=== PATIENT | male | born 1955 | race Caucasian/White ===

== ENCOUNTER 2017-02-11 13:22 | Emergency (ER) | payer MEDICARE, MEDICAID ==
--- NOTE | 2017-02-11 14:54 | EDM.PDOC ---
ED HISTORY OF PRESENT ILLNESS - General Chief Complaint: Respiratory Problem Stated Complaint: PNEUMONIA Time Seen by Provider: 02/11/17 14:15 Source: Reports: Patient History Limitations: Reports: No limitations - History of Present Illness INITIAL COMMENTS - FREE TEXT/NARRATIVE: According to patient he has been having nasal congestion and cough since sunday. He has been running fever with chills with bodyaches and back ache. Cough is worse at night. Has some sore throat today. He feels weak, tired an achy. He is concerned he has pneumonia and hence here in the clinic. No other complaints. No wheezing , chest pain or shortness of breath. Symptom Onset Date: 02/09/17 Timing/Duration: Reports: Gradual onset Severity: moderate Associated Symptoms: Reports: cough, fever/chills, headaches, weakness. Denies : confusion, chest pain, diaphoresis, loss of appetite, nausea/vomiting, shortness of breath, syncope - Related Data Allergies/ADRs: Allergies Allergy/AdvReac Type Severity Reaction Status Date / Time No Known Allergies Allergy Verified 09/03/15 11:38 Home Meds: Home Meds Aspirin [Halfprin] 81 mg PO DAILY 11/03/14 [History] Cinacalcet [Sensipar] 30 mg PO DAILY 11/03/14 [History] Citalopram Hydrobromide [Celexa] 20 mg PO DAILY 11/03/14 [History] Gluc HCl/Csa/Daniel Hy/Hyalur Ac [Glucosamine Chondroitin] 1 each PO DAILY [History] Hydrochlorothiazide 12.5 mg PO DAILY 11/03/14 [History] Latanoprost [Xalatan] 1 drop OP DAILY 11/03/14 [History] Levothyroxine Sodium [Levoxyl] 75 mcg PO DAILY 11/03/14 [History] OLANZapine [ZyPREXA Zydis] 15 mg PO BEDTIME 11/03/14 [History] [place]-3 Fatty Acids [[place]-3] 1,000 mg PO BID 11/03/14 [History] Sennosides/Docusate Sodium [Senna-Docusate Sodium] 2 tab PO BEDTIME 11/03/14 [ History] Simvastatin [Zocor] 20 mg PO BEDTIME 11/03/14 [History] buPROPion HCl [Wellbutrin SR] 450 mg PO DAILY 11/03/14 [History] ARIPiprazole [Abilify] 7.5 mg PO DAILY 09/03/15 [History] Potassium Chloride [Klor-Con M20] 20 meq PO DAILY 09/03/15 [History] Pramipexole Di-HCl [Mirapex] 2 mg PO BEDTIME 09/03/15 [History] lamoTRIgine [LaMICtal] 150 mg PO BID 09/03/15 [History] Cholecalciferol (Vitamin D3) [Vitamin D3] 1,000 unit PO DAILY 02/11/17 [History] OLANZapine [Olanzapine] 10 mg PO DAILY 02/11/17 [History] Past Medical History HEENT History: Reports: Cataract Other HEENT History: had cataract surgery, wears glasses Cardiovascular History: Reports: Other (see below) Other Cardiovascular History: States was told some enzyme was elevated in [place] and now takes aspirin Genitourinary History: Reports: Renal disease Musculoskeletal History: Reports: Arthritis, Back pain, chronic Neurological History: Reports: Migraines Psychiatric History: Reports: Depression, Schizophrenia Other Psychiatric History: Has had ECT x 2, Dx Schizo Affective Depression Endocrine/Metabolic History: Reports: Hypothyroidism, IDDM Other Endocrine/Metabolic History: Diabetes insipidus - Past Surgical History HEENT Surgical History: Reports: Cataract surgery Cardiovascular Surgical History: Reports: None GI Surgical History: Reports: Hernia repair/other Other GI Surgeries/Procedures: hernia repair x 3 Male Surgical History: Reports: None Musculoskeletal Surgical History: Reports: Carpal tunnel, Knee replacement Other Musculoskeletal Surgeries/Procedures:: bilateral knee surger and bilateral carpal tunnel Social & Family History - Family History Family Medical History: Noncontributory - Tobacco Use Smoking Status *Q: Never Smoker Second Hand Smoke Exposure: No - Caffeine Use Caffeine Use: Reports: Coffee - Recreational Drug Use Recreational Drug Use: No ED ROS GENERAL - Review of Systems Review Of Systems: See Below Constitutional: Reports: fever, chills, weakness HEENT: Reports: Rhinitis, Throat pain. Denies: Ear discharge, Ear pain, Throat swelling, Vision change Respiratory: Reports: Cough. Denies: Shortness of Breath, Wheezing, Pleuritic Chest Pain Cardiovascular: Denies: Chest pain, Lightheadedness GI/Abdominal: Denies: Abdominal pain, Nausea, Vomiting : Denies: dysuria, frequency Musculoskeletal: Reports: muscle pain. Denies: joint pain, joint swelling Skin: Denies: pruritis, rash ED EXAM, GENERAL - Physical Exam Exam: See Below Exam Limited By: No limitations General Appearance: alert, WD/WN, no apparent distress Eye Exam: bilateral eye: EOMI, PERRL Ears: normal external exam, normal canal, hearing grossly normal, normal TMs Ear Exam: bilateral ear: auricle normal, canal normal, TM normal Nose: normal mucosa, nasal drainage (minimal and mucoid) Throat/Mouth: Normal inspection, Normal lips, Normal teeth, Normal gums, Normal oropharynx, Normal voice, No airway compromise Head: atraumatic, normocephalic Neck: normal inspection, supple, non-tender, full range of motion Respiratory/Chest: no respiratory distress, lungs clear, normal breath sounds, no accessory muscle use, chest non-tender Cardiovascular: normal peripheral pulses, regular rate, rhythm, no edema, no gallop, no JVD, no murmur, no rub Peripheral Pulses: 2+: radial (L), radial (R) GI/Abdominal: normal bowel sounds, soft, non tender, no organomegaly, no distention, no abnormal bruit, no mass Neurological: alert, oriented, CN II-XII intact, normal cognition, normal gait, normal reflexes, no motor/sensory deficits Skin Exam: Warm, Dry, Intact, Normal color, No rash Course - Vital Signs Text/Narrative:: Pt's chest xray appears normal.His CBC shows white count of 4.8. His influenza testing is negative. Pt reassured that he has viral upper respiratory infection with fever. Advised rest and hydration. Steam inhalations 3-4 times daily. Zyrtec 10mg daily. this is self limiting disease, should resolve. If symptoms not better in 1 wk or worsens, advised to followup in the clinic. Last Recorded V/S: Last Vital Signs Temp 100 F 02/11/17 14:53 Pulse 60 02/11/17 14:53 Resp 18 02/11/17 14:53 BP 125/75 02/11/17 14:53 Pulse Ox 97 02/11/17 14:53 - Orders/Labs/Meds Orders: Active Orders 24 hr Category Date Time Status Chest 2V [CR] Stat Exams 02/11/17 14:17 Taken Labs: Laboratory Tests 02/11/17 Range/Units 14:25 WBC 4.6 (4.0-11.0) K/uL RBC 4.70 (4.50-6.50) M/uL Hgb 14.0 (13.0-18.0) g/dL Hct 42.8 (40.0-54.0) % MCV 91 (76-96) fL MCH 29.8 (27.0-32.0) pg MCHC 32.7 (31.0-35.0) g/dL RDW 14.7 (11.0-16.0) % Plt Count 138 L (150-400) K/uL MPV 10.9 H (6.0-10.0) fL Neut % (Auto) 49.1 (45.0-70.0) % Lymph % (Auto) 26.2 (20.0-40.0) % [place] % (Auto) 23.4 H (3.0-10.0) % Eos % (Auto) 0.9 L (1.0-5.0) % Baso % (Auto) 0.4 (0.0-0.5) % Neut # (Auto) 2.25 (2.00-7.50) K/uL Lymph # (Auto) 1.20 L (1.50-4.00) K/uL [place] # (Auto) 1.07 H (0.20-0.80) K/uL Eos # (Auto) 0.04 (0.04-0.40) K/uL Baso # (Auto) 0.02 (0.02-0.10) K/uL Departure - Departure Time of Disposition: 13:15 Disposition: Home, Self-Care 01 Clinical Impression: Acute upper respiratory infection Instructions: Loratadine oral disintegrating tablets Referrals: PCP,None [Primary Care Provider] - Forms: ED Department Discharge Additional Instructions: Pt's chest xray appears normal.His CBC shows white count of 4.8. His influenza testing is negative. Pt reassured that he has viral upper respiratory infection with fever. Advised rest and hydration. Steam inhalations 3-4 times daily. Zyrtec 10mg daily. this is self limiting disease, should resolve. If symptoms not better in 1 wk or worsens, advised to followup in the clinic. Care Plan Goals: Boil watter with vicks and inhail x 2 minutes 3 to 4 x day. Zyrtec (citrazene) daily. - Problem List & Annotations (1) Acute upper respiratory infection SNOMED Code(s): 34486579 Code(s): J06.9 - ACUTE UPPER RESPIRATORY INFECTION, UNSPECIFIED Status: Acute Current Visit: Yes - Problem List Review Problem List Initiated/Reviewed/Updated: Yes - My Orders Last 24 Hours: My Active Orders 02/11/17 14:17 Chest 2V [CR] Stat - Assessment/Plan Last 24 Hours: My Active Orders 02/11/17 14:17 Chest 2V [CR] Stat Assessment:: Acute viral URI Plan: Pt's chest xray appears normal.His CBC shows white count of 4.8. His influenza testing is negative. Pt reassured that he has viral upper respiratory infection with fever. Advised rest and hydration. Steam inhalations 3-4 times daily. Zyrtec 10mg daily. this is self limiting disease, should resolve. If symptoms not better in 1 wk or worsens, advised to followup in the clinic.
[2017-02-11 14:55] VITALS: BP 125/75
--- NOTE | 2017-02-12 08:47 | CR ---
DATE OF SERVICE: 02/11/17 CLINICAL DATA: temp cough PA AND LATERAL CHEST: Comparison is made to a prior exam dated 09/03/15. The heart size is normal. The aorta is ectatic. There are atelectatic changes in both lower lungs. The lungs are otherwise clear. No pneumothorax. No pleural effusions. I do not see any other significant findings. [id number] [facility]
== END 2017-02-11 15:30 | disposition home or self-care (01) ==
LOC: LB.ED 13:22
DX: J06.9 Acute upper respiratory infection, unspecified (principal); E11.9 Type 2 diabetes mellitus without complications; M19.90 Unspecified osteoarthritis, unspecified site; F32.9 Major depressive disorder, single episode, unspecified; Z98.49 Cataract extraction status, unspecified eye; Z79.82 Long term (current) use of aspirin; Z79.899 Other long term (current) drug therapy; Z96.653 Presence of artificial knee joint, bilateral; Z98.890 Other specified postprocedural states
CPT/HCPCS: 36415; 71020; 85025; 87804; 99283

== ENCOUNTER 2017-10-11 09:05 | Observation (INO) | payer MEDICARE, MEDICAID ==
--- NOTE | 2017-10-11 10:41 | EDM.PDOC ---
ED HPI GENERAL MEDICAL PROBLEM - General Chief Complaint: Chest Pain Stated Complaint: chest pain Time Seen by Provider: 10/11/17 10:00 Source of Information: Reports: Patient, Old Records History Limitations: Reports: No Limitations - History of Present Illness INITIAL COMMENTS - FREE TEXT/NARRATIVE: This is a 62yo M here for chest pain since the am. He states it started this am in the left side of the chest, dull and has been constant and slightly improved with no radiation. He has not taken any nitro but has in the past. Denies any sob or other concerns. No diaphoresis or numbness or tingling. Onset: Today Duration: Hour(s):, Constant Location: Reports: Chest Quality: Reports: Ache Severity: Moderate Improves with: Reports: None Worsens with: Reports: Movement Associated Symptoms: Reports: No Other Symptoms chest pain Pain Score (Numeric/FACES): 6 - Related Data Allergies Allergy/AdvReac Type Severity Reaction Status Date / Time No Known Allergies Allergy Verified 09/03/15 11:38 Home Meds: Home Meds Aspirin [Halfprin] 81 mg PO DAILY 11/03/14 [History] Cinacalcet [Sensipar] 30 mg PO DAILY 11/03/14 [History] Citalopram Hydrobromide [Celexa] 20 mg PO DAILY 11/03/14 [History] Gluc HCl/Csa/Daniel Hy/Hyalur Ac [Glucosamine Chondroitin] 1 each PO DAILY [History] Hydrochlorothiazide 12.5 mg PO DAILY 11/03/14 [History] Latanoprost [Xalatan] 1 drop OP DAILY 11/03/14 [History] Levothyroxine Sodium [Levoxyl] 75 mcg PO DAILY 11/03/14 [History] OLANZapine [ZyPREXA Zydis] 15 mg PO BEDTIME 11/03/14 [History] [place]-3 Fatty Acids [[place]-3] 1,000 mg PO BID 11/03/14 [History] Sennosides/Docusate Sodium [Senna-Docusate Sodium] 2 tab PO BEDTIME 11/03/14 [ History] Simvastatin [Zocor] 20 mg PO BEDTIME 11/03/14 [History] buPROPion HCl [Wellbutrin SR] 450 mg PO DAILY 11/03/14 [History] ARIPiprazole [Abilify] 7.5 mg PO DAILY 09/03/15 [History] Potassium Chloride [Klor-Con M20] 20 meq PO DAILY 09/03/15 [History] Pramipexole Di-HCl [Mirapex] 2 mg PO BEDTIME 09/03/15 [History] lamoTRIgine [LaMICtal] 150 mg PO BID 09/03/15 [History] Cholecalciferol (Vitamin D3) [Vitamin D3] 1,000 unit PO DAILY 02/11/17 [History] OLANZapine [Olanzapine] 10 mg PO DAILY 02/11/17 [History] Past Medical History HEENT History: Reports: Cataract Other HEENT History: had cataract surgery, wears glasses Cardiovascular History: Reports: Other (See Below) Other Cardiovascular History: States was told some enzyme was elevated in [place] and now takes aspirin Genitourinary History: Reports: Renal Disease Musculoskeletal History: Reports: Arthritis, Back Pain, Chronic Neurological History: Reports: Migraines Psychiatric History: Reports: Depression, Schizophrenia Other Psychiatric History: Has had ECT x 2, Dx Schizo Affective Depression Endocrine/Metabolic History: Reports: Hypothyroidism, IDDM Other Endocrine/Metabolic History: Diabetes insipidus - Past Surgical History HEENT Surgical History: Reports: Cataract Surgery GI Surgical History: Reports: Hernia Repair/Other Musculoskeletal Surgical History: Reports: Carpal Tunnel, Knee Replacement Social & Family History - Family History Family Medical History: Noncontributory - Tobacco Use Smoking Status *Q: Never Smoker Second Hand Smoke Exposure: No - Caffeine Use Caffeine Use: Reports: Coffee - Recreational Drug Use Recreational Drug Use: No ED ROS GENERAL - Review of Systems Review Of Systems: ROS reveals no pertinent complaints other than HPI. ED EXAM, GENERAL - Physical Exam Exam: See Below Exam Limited By: No Limitations General Appearance: Alert, WD/WN, Mild Distress Eye Exam: Bilateral Eye: EOMI Ears: Normal External Exam Ear Exam: Bilateral Ear: TM normal Nose: Normal Inspection Throat/Mouth: Normal Inspection, Normal Lips, Normal Teeth, Normal Oropharynx Head: Atraumatic, Normocephalic Neck: Normal Inspection Respiratory/Chest: No Respiratory Distress, Lungs Clear Cardiovascular: Normal Peripheral Pulses, Regular Rate, Rhythm, Other (chest wall pain that is reproducible) Peripheral Pulses: 2+: Carotid (L), Carotid (R) GI/Abdominal: Normal Bowel Sounds Back Exam: Normal Inspection Neurological: Alert, Oriented, CN II-XII Intact Course - Vital Signs Last Recorded V/S: Last Vital Signs Temp 36.7 C 10/11/17 09:54 Pulse 58 L 10/11/17 13:36 Resp 22 H 10/11/17 09:54 BP 120/73 10/11/17 13:36 Pulse Ox 99 10/11/17 13:36 - Orders/Labs/Meds Labs: Laboratory Tests 10/11/17 10/11/17 Range/Units 09:30 09:30 WBC 4.7 (4.0-11.0) K/uL RBC 4.40 L (4.50-6.50) M/uL Hgb 13.0 (13.0-18.0) g/dL Hct 39.9 L (40.0-54.0) % MCV 91 (76-96) fL MCH 29.5 (27.0-32.0) pg MCHC 32.6 (31.0-35.0) g/dL RDW 14.3 (11.0-16.0) % Plt Count 149 L (150-400) K/uL MPV 11.1 H (6.0-10.0) fL Neut % (Auto) 52.7 (45.0-70.0) % Lymph % (Auto) 31.4 (20.0-40.0) % [place] % (Auto) 10.3 H (3.0-10.0) % Eos % (Auto) 4.5 (1.0-5.0) % Baso % (Auto) 1.1 H (0.0-0.5) % Neut # (Auto) 2.45 (2.00-7.50) K/uL Lymph # (Auto) 1.46 L (1.50-4.00) K/uL [place] # (Auto) 0.48 (0.20-0.80) K/uL Eos # (Auto) 0.21 (0.04-0.40) K/uL Baso # (Auto) 0.05 (0.02-0.10) K/uL Sodium 142 (136-145) mmol/L Potassium 3.6 (3.5-5.1) mmol/L Chloride 103 (98-107) mmol/L Carbon Dioxide 27.7 (21.0-32.0) mmol/L Anion Gap 14.9 (5.0-15.0) mmol/L BUN 26 (8-26) mg/dL Creatinine 2.34 H (0.70-1.30) mg/dL Est Cr Clr Drug Dosing 25.67 mL/min Estimated GFR (MDRD) 28 L (>60) MLS/MIN BUN/Creatinine Ratio 11.1 (6-25) Glucose 103 H (74-100) mg/dL Calcium 8.5 (8.5-10.1) mg/dL Total Bilirubin 0.4 (0.0-1.0) mg/dL AST 31 (15-37) U/L ALT 37 (12-78) U/L Alkaline Phosphatase 58 (46-116) U/L Troponin I < 0.017 (0.000-0.060) ng/mL B-Natriuretic Peptide 34 (0-125) pg/mL Total Protein 7.0 (6.4-8.2) g/dL Albumin 3.6 (3.4-5.0) g/dL Globulin 3.4 (2.2-4.2) g/dL Albumin/Globulin Ratio 1.1 (0.8-2.0) TSH, Ultra Sensitive 3.854 H (0.358-3.740) uIU/mL Meds: Medications Discontinued Medications Generic Name Dose Route Start Last Admin Trade Name Freq PRN Reason Stop Dose Admin Aspirin 81 mg 10/12/17 08:00 Halfprin PO DAILY DANETTE Bupropion HCl 450 mg 10/12/17 08:00 Wellbutrin Sr PO DAILY DANETTE Hydrochlorothiazide 12.5 mg 10/12/17 08:00 Hydrochlorothiazide PO DAILY DANETTE Ketorolac Tromethamine 30 mg 10/11/17 11:32 10/11/17 11:30 Toradol IVPUSH 10/11/17 11:33 30 mg ONETIME ONE Administration Lamotrigine 150 mg 10/11/17 20:00 Lamictal PO BID DANETTE Latanoprost 2.5 ml 10/11/17 20:00 Xalatan 0.005% Ophth Soln EYEBOTH BEDTIME DANETTE Levothyroxine Sodium 75 mcg 10/12/17 08:00 Levothyroxine PO DAILY DANETTE Non-Formulary Medication 7.5 mg 10/12/17 08:00 Aripiprazole [Abilify] PO DAILY DANETTE Non-Formulary Medication 1,000 unit 10/12/17 08:00 Cholecalciferol (Vitamin D3) [Vitamin D3] PO DAILY DANETTE Non-Formulary Medication 30 mg 10/12/17 08:00 Cinacalcet [Sensipar] PO DAILY DANETTE Non-Formulary Medication 20 mg 10/12/17 08:00 Citalopram Hydrobromide [Celexa] PO DAILY DANETTE Non-Formulary Medication 1 each 10/12/17 08:00 Gluc Hcl/Csa/Daniel Hy/Hyalur Ac [Glucosamine Chondroitin] PO DAILY DANETTE Non-Formulary Medication 10 mg 10/12/17 08:00 Olanzapine [Olanzapine] PO DAILY DANETTE Non-Formulary Medication 15 mg 10/11/17 20:00 Olanzapine [Zyprexa Zydis] PO BEDTIME DANETTE Non-Formulary Medication 1,000 mg 10/11/17 20:00 [place]-3 Fatty Acids [[place]-3] PO BID DANETTE Potassium Chloride 20 meq 10/12/17 08:00 Klor-Con M20 PO DAILY DANETTE Pramipexole Dihydrochloride 2 mg 10/11/17 20:00 Mirapex PO BEDTIME DANETTE Senna/Docusate Sodium 2 tab 10/11/17 20:00 Senna Plus PO BEDTIME DANETTE Simvastatin 20 mg 10/11/17 20:00 Zocor PO BEDTIME DANETTE Departure - Departure Time of Disposition: 10:00 Disposition: Refer to Observation Condition: Undetermined Clinical Impression: Chest pain Qualifiers: Chest pain type: other chest pain Qualified Code(s): R07.89 - Other chest pain ; R07.8 - Other chest pain - Problem List & Annotations (1) Chest pain SNOMED Code(s): 82606731 Code(s): R07.9 - CHEST PAIN, UNSPECIFIED Status: Acute Priority: High Qualifiers: Chest pain type: other chest pain Qualified Code(s): R07.89 - Other chest pain; R07.8 - Other chest pain - Problem List Review Problem List Initiated/Reviewed/Updated: Yes - Assessment/Plan Plan: Patient placed in observation under telemetry for serial troponins. Patient agrees with plan of care and we will continue to monitor closely. Patient continues to have chest pain 4/10 non radiating.
[2017-10-11] MEDS ORDERED: Ketorolac 30 MG/ML SDV IVPUSH ONE (11:32)
[2017-10-11 13:37] VITALS: BP 120/73
--- NOTE | 2017-10-11 15:11 | PCM.DCSUM1 ---
Discharge Summary - Discharge Data Discharge Date: 10/11/17 Discharge Disposition: Home, Self-Care 01 Condition: Good - Discharge Diagnosis/Problem(s) (1) Chest pain, musculoskeletal SNOMED Code(s): 175863749 ICD Code: R07.89 - OTHER CHEST PAIN Status: Acute (2) Chest pain SNOMED Code(s): 11792188 ICD Code: R07.9 - CHEST PAIN, UNSPECIFIED Status: Acute Priority: High Qualifiers: Chest pain type: other chest pain Qualified Code(s): R07.89 - Other chest pain; R07.8 - Other chest pain - Patient Instructions Diet: Regular Diet as Tolerated Activity: As Tolerated - Discharge Plan Home Medications: Home Meds Aspirin [Halfprin] 81 mg PO DAILY 11/03/14 [History] Cinacalcet [Sensipar] 30 mg PO DAILY 11/03/14 [History] Citalopram Hydrobromide [Celexa] 20 mg PO DAILY 11/03/14 [History] Gluc HCl/Csa/Daniel Hy/Hyalur Ac [Glucosamine Chondroitin] 1 each PO DAILY [History] Hydrochlorothiazide 12.5 mg PO DAILY 11/03/14 [History] Latanoprost [Xalatan] 1 drop OP DAILY 11/03/14 [History] Levothyroxine Sodium [Levoxyl] 75 mcg PO DAILY 11/03/14 [History] OLANZapine [ZyPREXA Zydis] 15 mg PO BEDTIME 11/03/14 [History] [place]-3 Fatty Acids [[place]-3] 1,000 mg PO BID 11/03/14 [History] Sennosides/Docusate Sodium [Senna-Docusate Sodium] 2 tab PO BEDTIME 11/03/14 [ History] Simvastatin [Zocor] 20 mg PO BEDTIME 11/03/14 [History] buPROPion HCl [Wellbutrin SR] 450 mg PO DAILY 11/03/14 [History] ARIPiprazole [Abilify] 7.5 mg PO DAILY 09/03/15 [History] Potassium Chloride [Klor-Con M20] 20 meq PO DAILY 09/03/15 [History] Pramipexole Di-HCl [Mirapex] 2 mg PO BEDTIME 09/03/15 [History] lamoTRIgine [LaMICtal] 150 mg PO BID 09/03/15 [History] Cholecalciferol (Vitamin D3) [Vitamin D3] 1,000 unit PO DAILY 02/11/17 [History] OLANZapine [Olanzapine] 10 mg PO DAILY 02/11/17 [History] Patient Handouts: Hypothyroidism Forms: ED Department Discharge Referrals: PCP,None [Primary Care Provider] - - Discharge Summary/Plan Comment Discharge Summary/Plan Comment: Counseled on continued monitoring and supportive/conservative care of chest pain and f/u in clinic as needed. Discussed if any further symptoms or worsening to return for re-evaluation. Discussed signs of diaphoresis, radiation , shortness of breath and other symptoms to monitor. Discussed stress and rest at this time. - Patient Data Vitals - Most Recent: Last Vital Signs Temp 36.7 C 10/11/17 09:54 Pulse 58 L 10/11/17 13:36 Resp 22 H 10/11/17 09:54 BP 120/73 10/11/17 13:36 Pulse Ox 99 10/11/17 13:36 Weight - Most Recent: 78.018 kg Lab Results - Last 24 hrs: Laboratory Results - last 24 hr 10/11/17 Range/Units 13:58 Troponin I < 0.017 (0.000-0.060) ng/mL Med Orders - Current: Current Medications Aspirin (Halfprin) 81 mg PO DAILY DANETTE Bupropion HCl (Wellbutrin Sr) 450 mg PO DAILY DANETTE Hydrochlorothiazide (Hydrochlorothiazide) 12.5 mg PO DAILY DANETTE Lamotrigine (Lamictal) 150 mg PO BID DANETTE Latanoprost (Xalatan 0.005% Ophth Soln) 2.5 ml EYEBOTH BEDTIME DANETTE Levothyroxine Sodium (Levothyroxine) 75 mcg PO DAILY DANETTE Non-Formulary Medication (Aripiprazole [Abilify]) 7.5 mg PO DAILY DANETTE Non-Formulary Medication (Cholecalciferol (Vitamin D3) [Vitamin D3]) 1,000 unit PO DAILY DANETTE Non-Formulary Medication (Cinacalcet [Sensipar]) 30 mg PO DAILY DANETTE Non-Formulary Medication (Citalopram Hydrobromide [Celexa]) 20 mg PO DAILY DANETTE Non-Formulary Medication (Gluc Hcl/Csa/Daniel Hy/Hyalur Ac [Glucosamine Chondroitin]) 1 each PO DAILY DANETTE Non-Formulary Medication (Olanzapine [Olanzapine]) 10 mg PO DAILY DANETTE Non-Formulary Medication (Olanzapine [Zyprexa Zydis]) 15 mg PO BEDTIME DANETTE Non-Formulary Medication ([place]-3 Fatty Acids [[place]-3]) 1,000 mg PO BID DANETTE Potassium Chloride (Klor-Con M20) 20 meq PO DAILY DANETTE Pramipexole Dihydrochloride (Mirapex) 2 mg PO BEDTIME DANETTE Senna/Docusate Sodium (Senna Plus) 2 tab PO BEDTIME DANETTE Simvastatin (Zocor) 20 mg PO BEDTIME DANETTE Discontinued Medications Ketorolac Tromethamine (Toradol) 30 mg IVPUSH ONETIME ONE Stop: 10/11/17 11:33 Last Admin: 10/11/17 11:30 Dose: 30 mg *Q Meaningful Use (DIS) - VTE *Q VTE Criteria *Q: - Stroke *Q Stroke Criteria *Q: - AMI *Q AMI Criteria *Q:
[2017-10-11] MEDS ORDERED: Pramipexole 0.125 MG Tab PO SCH (20:00)
[2017-10-11] MEDS ORDERED: Simvastatin 20 MG Tab PO SCH (20:00)
[2017-10-11] MEDS ORDERED: Latanoprost 0.005% Ophth Soln 2.5 ML Bottle EYEBOTH SCH (20:00)
[2017-10-11] MEDS ORDERED: Non-Formulary Medication 1 Each (Omega-3 Fatty Acids [Omega-3] 1,000 MG) PO SCH (20:00)
[2017-10-11] MEDS ORDERED: OLANZAPINE 15 MG PO SCH (20:00)
[2017-10-12] MEDS ORDERED: CINACALCET 30 MG PO SCH (08:00)
[2017-10-12] MEDS ORDERED: Levothyroxine 75 MCG Tab PO SCH (08:00)
[2017-10-12] MEDS ORDERED: buPROPion 150 MG Tab.SR PO SCH (08:00)
[2017-10-12] MEDS ORDERED: Non-Formulary Medication 1 Each (Cholecalciferol (Vitamin D3) [Vitamin D3] 1,000 UNIT) PO SCH (08:00)
[2017-10-12] MEDS ORDERED: OLANZAPINE 10 MG PO SCH (08:00)
[2017-10-12] MEDS ORDERED: Hydrochlorothiazide 25 MG Tab PO SCH (08:00)
[2017-10-12] MEDS ORDERED: ARIPIPRAZOLE 7.5 MG PO SCH (08:00)
[2017-10-12] MEDS ORDERED: Potassium Chloride 20 MEQ Tab.ER PO SCH (08:00)
[2017-10-12] MEDS ORDERED: Aspirin 81 MG Tab.EC PO SCH (08:00)
[2017-10-12] MEDS ORDERED: Non-Formulary Medication 1 Each (Citalopram Hydrobromide [Celexa] 20 MG) PO SCH (08:00)
== END 2017-10-11 15:50 | disposition home or self-care (01) ==
LOC: LB.ED 09:05 → LB.MS 10:32
PROVIDERS: ADMIT Family Medicine; ATTEND Family Medicine
DX: R07.89 Other chest pain (principal); E11.9 Type 2 diabetes mellitus without complications; F32.9 Major depressive disorder, single episode, unspecified; E03.9 Hypothyroidism, unspecified; N28.9 Disorder of kidney and ureter, unspecified; Z79.82 Long term (current) use of aspirin; Z79.899 Other long term (current) drug therapy
CPT/HCPCS: 36415; 80053; 83880; 84443; 84484; 85025; 93005; 96374; 99285; A9270; G0378; J1885; 99235

== ENCOUNTER 2018-01-15 16:09 | Emergency (ER) | payer MEDICARE, MEDICAID ==
--- NOTE | 2018-01-15 16:39 | EDM.PDOC ---
ED HPI GENERAL MEDICAL PROBLEM - General Stated Complaint: CHEST PAIN & CONFUSION Time Seen by Provider: 01/15/18 16:10 Source of Information: Reports: Patient History Limitations: Reports: No Limitations - History of Present Illness INITIAL COMMENTS - FREE TEXT/NARRATIVE: According to patient he claims that he think he hit hie left chest against the wall 2 days ago. Since then he has been having chest pain, which is over the left side of the chest. Hurts when he takes deep breaths and also hurts when he pushes against left chest wall. He claims he really got concerned as pain has not been better.He has been feeling shortness of breath and also shaky, hence he called ambulance with the fear that he was having heart attacks. Pt claims he is very anxious. No sweating, no nausea or vomiting. No exertional angina. pt claims he was anxious and also got confused about the phone number of the [facility]. Onset Date: 01/13/18 Duration: Intermittent, Waxing/Waning Location: Reports: Chest Quality: Reports: Ache, Dull Severity: Mild Improves with: Reports: None Worsens with: Reports: Breathing, Movement Associated Symptoms: Reports: Confusion. Denies: Chest Pain, Cough, Diaphoresis , Fever/Chills, Headaches, Loss of Appetite, Malaise, Nausea/Vomiting, Rash, Seizure, Shortness of Breath, Syncope, Weakness - Related Data Allergies Allergy/AdvReac Type Severity Reaction Status Date / Time No Known Allergies Allergy Verified 09/03/15 11:38 Home Meds: Home Meds Aspirin [Halfprin] 81 mg PO DAILY 11/03/14 [History] Cinacalcet [Sensipar] 30 mg PO DAILY 11/03/14 [History] Citalopram Hydrobromide [Celexa] 20 mg PO DAILY 11/03/14 [History] Gluc HCl/Csa/Daniel Hy/Hyalur Ac [Glucosamine Chondroitin] 1 each PO DAILY [History] Hydrochlorothiazide 12.5 mg PO DAILY 11/03/14 [History] Latanoprost [Xalatan] 1 drop OP DAILY 11/03/14 [History] Levothyroxine Sodium [Levoxyl] 75 mcg PO DAILY 11/03/14 [History] OLANZapine [ZyPREXA Zydis] 15 mg PO BEDTIME 11/03/14 [History] [place]-3 Fatty Acids [[place]obb-3] 1,000 mg PO BID 11/03/14 [History] Sennosides/Docusate Sodium [Senna-Docusate Sodium] 2 tab PO BEDTIME 11/03/14 [ History] Simvastatin [Zocor] 20 mg PO BEDTIME 11/03/14 [History] buPROPion HCl [Wellbutrin SR] 450 mg PO DAILY 11/03/14 [History] ARIPiprazole [Abilify] 7.5 mg PO DAILY 09/03/15 [History] Potassium Chloride [Klor-Con M20] 20 meq PO DAILY 09/03/15 [History] Pramipexole Di-HCl [Mirapex] 2 mg PO BEDTIME 09/03/15 [History] lamoTRIgine [LaMICtal] 150 mg PO BID 09/03/15 [History] Cholecalciferol (Vitamin D3) [Vitamin D3] 1,000 unit PO DAILY 02/11/17 [History] OLANZapine [Olanzapine] 10 mg PO DAILY 02/11/17 [History] Past Medical History HEENT History: Reports: Cataract Other HEENT History: had cataract surgery, wears glasses Cardiovascular History: Reports: Other (See Below) Other Cardiovascular History: States was told some enzyme was elevated in [place] and now takes aspirin Genitourinary History: Reports: Renal Disease Musculoskeletal History: Reports: Arthritis, Back Pain, Chronic Neurological History: Reports: Migraines Psychiatric History: Reports: Depression, Schizophrenia Other Psychiatric History: Has had ECT x 2, Dx Schizo Affective Depression Endocrine/Metabolic History: Reports: Hypothyroidism, IDDM Other Endocrine/Metabolic History: Diabetes insipidus - Past Surgical History HEENT Surgical History: Reports: Cataract Surgery GI Surgical History: Reports: Hernia Repair/Other Musculoskeletal Surgical History: Reports: Carpal Tunnel, Knee Replacement Social & Family History - Family History Family Medical History: Noncontributory - Tobacco Use Smoking Status *Q: Never Smoker Second Hand Smoke Exposure: No - Caffeine Use Caffeine Use: Reports: Coffee - Recreational Drug Use Recreational Drug Use: No ED ROS GENERAL - Review of Systems Review Of Systems: See Below Constitutional: Denies: Fever, Chills, Night Sweats, Diaphoresis HEENT: Denies: Rhinitis, Sinus Problem, Throat Pain Respiratory: Reports: Pleuritic Chest Pain. Denies: Shortness of Breath, Wheezing, Cough, Sputum Cardiovascular: Denies: Chest Pain, Lightheadedness GI/Abdominal: Denies: Abdominal Pain, Constipation, Diarrhea, Nausea, Vomiting : Denies: Flank Pain, Pain, Urgency Musculoskeletal: Denies: Joint Pain, Joint Swelling Skin: Denies: Bruising, Pruritis, Rash ED EXAM, GENERAL - Physical Exam Exam: See Below Exam Limited By: No Limitations General Appearance: Alert, WD/WN, Anxious Eye Exam: Bilateral Eye: EOMI, PERRL Ears: Normal External Exam, Normal Canal, Hearing Grossly Normal, Normal TMs Ear Exam: Bilateral Ear: Auricle Normal, Canal Normal, TM normal Nose: Normal Inspection, Normal Mucosa, No Blood Throat/Mouth: Normal Inspection, Normal Lips, Normal Teeth, Normal Gums, Normal Oropharynx, Normal Voice, No Airway Compromise Head: Atraumatic, Normocephalic Neck: Normal Inspection, Supple, Non-Tender, Full Range of Motion Respiratory/Chest: No Respiratory Distress, Lungs Clear, Normal Breath Sounds, No Accessory Muscle Use, Other (Pt is tender over the left 4 and 5th costochondral junctions.). No: Crackles, Rales, Rhonchi, Wheezing Cardiovascular: Normal Peripheral Pulses, Regular Rate, Rhythm, No Edema, No Gallop, No JVD, No Murmur, No Rub GI/Abdominal: Normal Bowel Sounds, Soft, Non-Tender, No Organomegaly, No Distention, No Abnormal Bruit, No Mass Extremities: Normal Inspection, Normal Range of Motion, Non-Tender, Normal Capillary Refill, No Pedal Edema Neurological: Alert, Oriented, CN II-XII Intact, Normal Cognition, Normal Gait, Normal Reflexes, No Motor/Sensory Deficits EKG INTERPRETATION Rhythm: NSR Rate (Beats/Min): 75 [place]: Normal P-Wave: Present QRS: Normal ST-T: Normal QT: Normal Course - Vital Signs Text/Narrative:: According to patient he claims he hit hit left chest to the wall. Pain is elicitable by deep breathing and chest wall pressure. this appears like costochondiritis. Pt is very anxious and he has severe schizophrenia, which makes him paranoid. i have reassured pt that his EKG is normal. Will wait on lab work and troponin. If his chest pain is cardiac and going on for 48 hrs should have elevated troponin. Pt's CBC appear normal. His CMP shows creat of 2.3 which is chronic from his CRF. His troponin is negative. Pt reassured that he has mild costochondiritis. Advised intermittent heat to the chest wall every 2-3 hrs. Tylenol 500mg 4 times daily as needed. Pain should gradually improve. Last Recorded V/S: Last Vital Signs Temp 97.9 F 01/15/18 16:40 Pulse 75 01/15/18 16:40 Resp 18 01/15/18 16:40 BP 152/89 H 01/15/18 16:40 Pulse Ox 99 01/15/18 16:40 - Orders/Labs/Meds Orders: Active Orders 24 hr Category Date Time Status EKG Documentation Completion [RC] ASDIRECTED Care 01/15/18 16:32 Ordered Chest 2V [CR] Stat Exams 01/15/18 16:32 Ordered Labs: Laboratory Tests 01/15/18 01/15/18 Range/Units 16:55 16:55 WBC 5.2 (4.0-11.0) K/uL RBC 4.48 L (4.50-6.50) M/uL Hgb 13.2 (13.0-18.0) g/dL Hct 40.2 (40.0-54.0) % MCV 90 (76-96) fL MCH 29.5 (27.0-32.0) pg MCHC 32.8 (31.0-35.0) g/dL RDW 14.0 (11.0-16.0) % Plt Count 145 L (150-400) K/uL MPV 11.2 H (6.0-10.0) fL Neut % (Auto) 45.6 (45.0-70.0) % Lymph % (Auto) 33.3 (20.0-40.0) % Swisher % (Auto) 13.0 H (3.0-10.0) % Eos % (Auto) 7.5 H (1.0-5.0) % Baso % (Auto) 0.6 H (0.0-0.5) % Neut # (Auto) 2.39 (2.00-7.50) K/uL Lymph # (Auto) 1.74 (1.50-4.00) K/uL Swisher # (Auto) 0.68 (0.20-0.80) K/uL Eos # (Auto) 0.39 (0.04-0.40) K/uL Baso # (Auto) 0.03 (0.02-0.10) K/uL Sodium 145 (136-145) mmol/L Potassium 3.3 L (3.5-5.1) mmol/L Chloride 104 (98-107) mmol/L Carbon Dioxide 25.2 (21.0-32.0) mmol/L Anion Gap 19.1 H (5.0-15.0) mmol/L BUN 28 H (8-26) mg/dL Creatinine 2.33 H (0.70-1.30) mg/dL Est Cr Clr Drug Dosing 25.78 mL/min Estimated GFR (MDRD) 28 L (>60) MLS/MIN BUN/Creatinine Ratio 12.0 (6-25) Glucose 138 H D (74-100) mg/dL Calcium 8.7 (8.5-10.1) mg/dL Total Bilirubin 0.5 (0.0-1.0) mg/dL AST 27 (15-37) U/L ALT 35 (12-78) U/L Alkaline Phosphatase 62 (46-116) U/L Troponin I < 0.017 (0.000-0.060) ng/mL Total Protein 7.2 (6.4-8.2) g/dL Albumin 3.7 (3.4-5.0) g/dL Globulin 3.5 (2.2-4.2) g/dL Albumin/Globulin Ratio 1.1 (0.8-2.0) Departure - Departure Time of Disposition: 17:45 Disposition: Home, Self-Care 01 Condition: Good Clinical Impression: Costochondritis Chest pain Qualifiers: Chest pain type: other chest pain Qualified Code(s): R07.89 - Other chest pain - Discharge Information Instructions: Chest Wall Pain, [id number] Referrals: PCP,None [Ordering Only Provider] - Forms: ED Department Discharge Care Plan Goals: Use heating pad 15 to 20 min at a time. Return to clinic or hospital as needed. - Problem List & Annotations (1) Costochondritis SNOMED Code(s): 28116090 Code(s): M94.0 - CHONDROCOSTAL JUNCTION SYNDROME [TIETZE] Status: Acute Current Visit: Yes - Problem List Review Problem List Initiated/Reviewed/Updated: Yes - My Orders Last 24 Hours: My Active Orders 01/15/18 16:32 EKG Documentation Completion [RC] ASDIRECTED Chest 2V [CR] Stat - Assessment/Plan Last 24 Hours: My Active Orders 01/15/18 16:32 EKG Documentation Completion [RC] ASDIRECTED Chest 2V [CR] Stat Assessment:: costochondiritis Plan: Pt's CBC appear normal. His CMP shows creat of 2.3 which is chronic from his CRF. His troponin is negative. Pt reassured that he has mild costochondiritis. Advised intermittent heat to the chest wall every 2-3 hrs. Tylenol 500mg 4 times daily as needed. Pain should gradually improve. followup in clinic if not better in 1 wk.
[2018-01-15 16:41] VITALS: BP 152/89
--- NOTE | 2018-01-15 18:35 | CR ---
DATE OF SERVICE: 01/15/18 CLINICAL DATA: chest pain pleuritic PA AND LATERAL CHEST: Comparison made to a prior exam dated 02/11/17. The heart size is normal. The aorta is calcified and ectatic. There are minimal atelectatic changes in both lung bases. The lungs are otherwise clear. No pneumothorax. No pleural effusions. [id number] MTDD
== END 2018-01-15 17:50 | disposition home or self-care (01) ==
LOC: LB.ED 16:09
DX: M94.0 Chondrocostal junction syndrome [Tietze] (principal); E03.9 Hypothyroidism, unspecified; E11.9 Type 2 diabetes mellitus without complications; M19.90 Unspecified osteoarthritis, unspecified site; Z79.82 Long term (current) use of aspirin; Z79.899 Other long term (current) drug therapy
CPT/HCPCS: 36415; 71046; 80053; 84484; 85025; 93005; 99284; 99285-25; A0425; A0429

== ENCOUNTER 2019-05-31 12:30 | Emergency (ER) | payer MEDICARE ==
--- NOTE | 2019-05-31 15:04 | ER ---
HISTORY OF PRESENT ILLNESS: A 64-year-old male here with concerns about an umbilical hernia. He has had it for years, but tells me that today after he ate a meal and was resting against the counter while he felt some discomfort in this area. He states that it did hurt as high as a 6/10, but now the pain has resolved. The patient has not had any other injuries to this area. There has been no change with bowel or bladder habits. OBJECTIVE: GENERAL APPEARANCE: The patient is awake and alert. No obvious distress. VITAL SIGNS: Reviewed as listed. ABDOMEN: Examining the patient's abdomen reveals a small to moderate-sized umbilical hernia that reduces easily without any discomfort to the patient. Abdomen is soft without pain and bowel sounds are present. SKIN: Warm and dry. DIAGNOSIS: Umbilical hernia. TREATMENT PLAN: I advised the patient that there is no emergency here today that at some point he may want to have this fixed and would be surgery. The patient tells me he is meeting with his primary care provider next Sunday. I advised him to have a conversation with that person about possible hernia repair. GALILEA/PATTIE /[id number]
[2019-05-31 18:40] VITALS: BP 134/81; PULSE 83
== END 2019-05-31 12:50 | disposition home or self-care (01) ==
LOC: LB.ED 12:30
DX: K42.9 Umbilical hernia without obstruction or gangrene (principal)
CPT/HCPCS: 99282; 99283

== ENCOUNTER 2019-07-31 07:01 | Day surgery (SDC) | payer MEDICARE ==
[~2019-07-31 07:01] MED LIST: Lactated Ringers 1,000 ML IV SCH; Ondansetron 4 MG/2 ML SDV IVPUSH PRN; Sodium Chloride 0.9% 10 ML Syringe FLUSH PRN
[2019-07-31] MEDS ORDERED: Acetaminophen/HYDROcodone 325-5 MG Tab PO PRN (09:00)
[2019-07-31] MEDS ORDERED: Morphine 2 MG/ML Syringe IVPUSH PRN (09:00)
[2019-07-31] MEDS: ceFAZolin 1 GM in Sodium Chloride 0.9% 50 ML IV ONE ×2 (09:10→09:32)
[2019-07-31] MEDS ORDERED: Lactated Ringers 1,000 ML IV SCH (10:00)
[2019-07-31] MEDS ORDERED: Atropine 0.4 MG/ML SDV ONE (10:50)
[2019-07-31] MEDS ORDERED: Dexamethasone 4 MG/ML SDV ONE (10:50)
[2019-07-31] MEDS ORDERED: fentaNYL 100 MCG/2 ML SDV ONE (10:50)
[2019-07-31] MEDS ORDERED: Ketorolac 30 MG/ML SDV ONE (10:50)
[2019-07-31] MEDS ORDERED: Propofol 1,000 MG/100 ML SDV ONE (10:50)
[2019-07-31] MEDS ORDERED: Glycopyrrolate 0.2 MG/ML 2 ML SDV ONE (10:50)
--- NOTE | 2019-07-31 11:03 | OR ---
DATE OF OPERATION: 07/31/2019 SURGEON: Mahamed Michele MD PRACTICE PERFORMANCE MANAGER: Lillian Rasmussen RN. PREOPERATIVE DIAGNOSIS: Umbilical hernia. POSTOPERATIVE DIAGNOSIS: Umbilical hernia. PROCEDURE: Open umbilical hernia repair with mesh. ANESTHESIA: General. ESTIMATED BLOOD LOSS: Minimal. COMPLICATIONS: None. INDICATION FOR PROCEDURE: The patient is a 64-year-old male who has noticed an umbilical hernia for the past while it has been slowly increasing in size. Now becoming uncomfortable form. He would like it repaired. DESCRIPTION OF PROCEDURE: Informed consent was obtained from the patient. The patient was taken to operating room, placed on table in supine position. General anesthesia was administered. He does receive preoperative antibiotics. His abdomen was prepped and draped in sterile fashion. The skin to the left of the umbilicus was infiltrated local anesthetic opening. Periumbilical incision carried out with 15 blade dissecting down to the subcutaneous tissues with electrocautery, then bluntly came around the umbilicus as well. The umbilicus was bluntly dissected away from the hernia sac using right angles and electrocautery. The umbilicus then dissected free. The hernia sac reduced in the preperitoneal space was cleared for placement of the mesh. Subcutaneous tissues were also cleared away from the fascia using electrocautery. A small 4.3 cm self-expanding mesh placed through the fascial defect. The ring was sutured into place with 4-0 Prolene sutures. This obliterated the defect nicely. The strap was cut. The fascia then closed with 0 Vicryl suture in a simple interrupted fashion. The wound was irrigated and dried. No active bleeding was seen. The umbilicus tacked down to the fascia using 2-0 Vicryl suture. The deep subcutaneous tissues reapproximated with 2-0 Vicryl. Deep dermal layer was closed with 3-0 Vicryl suture. Skin was closed with 4-0 Monocryl in a running subcuticular fashion. Mastisol, Steri-Strips, and sterile dressings were applied. At the end the case, all sponge count, needle count, instrument counts were correct. The patient tolerated procedure well, was extubated and brought to recovery room in good condition. CRISTI/PATTIE /[id number]
[2019-07-31 13:15] VITALS: BP 119/59; PULSE 71
== END 2019-07-31 13:30 | disposition home or self-care (01) ==
LOC: LB.SDS 07:01
PROVIDERS: ATTEND Surgery
DX: K42.9 Umbilical hernia without obstruction or gangrene (principal)
CPT/HCPCS: C1781; J0690; J7050; J7120

== ENCOUNTER 2020-01-20 16:27 | Emergency (ER) | payer MEDICARE ==
[2020-01-20 16:38] VITALS: BP 156/89; PULSE 93
--- NOTE | 2020-01-20 17:12 | EDM.PDOCBH ---
ED HPI GENERAL MEDICAL PROBLEM - General Chief Complaint: Behavioral/Psych Stated Complaint: SUCIDAL Time Seen by Provider: 01/20/20 16:45 Source of Information: Reports: Patient, Family, Other (public health nurse) History Limitations: Reports: No Limitations - History of Present Illness INITIAL COMMENTS - FREE TEXT/NARRATIVE: This patient presents to the ED for evaluation of increasing depression and suicidal ideation. This patient has a history of anxiety, paranoia, and depression. He was inpatient at [facility] in [place] from 09/2019 through 20/08/2020. His discharge plan included weekly visits with the PHN who sets up his medications and a telehealth visit with Dr. Foss from [facility]. He was seen last Sunday per usual and again this past when he had an additional telehealth visit with Dr. Foss. At that time his PHQ9 was 4. He was seen in the clinic on 01/15 for a PE with labs to rule out physiologic changes that could be causing his fatigue and inability to do ADLs and nothing was noted to be unusual. On reassessment today it was noted to be 18. He states that he does not have the energy to get out of bed, to do his ADLs, to walk or to ride the local bus. Today he did not feel strong enough to come in for a visit so his sister, Sloane picked him up and brought him in for his appointment. The patient admits to having suicidal thoughts in the past but they have become more pervasive. The PHN states he made statements today of feeling like giving up, feeling like a zombie, and feeling as though he would be better off . He has not been able to articulate a plan for suicide. He states he has been taking his medications as prescribed but has not been using any additional medications-he has a prescription for lorazepam that he can have once daily but has not been using it. He has recently had his medications changed to include an increase in his Prozac to 30 mg daily and his Lamictal to 175 mg bid. His PHN did contact Dr. Foss today to discuss this patient and he thought the patient should be evaluated by a mud jack nozzle worker. Since the decision was made to bring him to the ED for evaluation, the PHN states his anxiety has increased-he was given 0.5 mg lorazepam orally. Patient denies recent illness including fever, cough, sore throat or nausea, vomiting, or diarrhea. He denies alcohol or drug use. He denies recent physical traumas or any pain. Onset: Today - Related Data Allergies Allergy/AdvReac Type Severity Reaction Status Date / Time No Known Allergies Allergy Verified 01/20/20 16:44 Home Meds: Home Meds Aspirin [Halfprin] 81 mg PO DAILY 11/03/14 [History] Cinacalcet [Sensipar] 30 mg PO DAILY 11/03/14 [History] Glucosam/Chond/Collagen/Hyalur [Glucosamine Chondroitin] 1 each PO DAILY [History] Latanoprost [Xalatan] 1 drop OP DAILY 11/03/14 [History] Levothyroxine Sodium [Levoxyl] 88 mcg PO DAILY 11/03/14 [History] [place]-3 Fatty Acids [[place]-3] 1,000 mg PO BID 11/03/14 [History] Sennosides/Docusate Sodium [Senna-Docusate Sodium] 2 tab PO BEDTIME 11/03/14 [ History] Simvastatin [Zocor] 20 mg PO BEDTIME 11/03/14 [History] buPROPion HCl [Wellbutrin SR] 450 mg PO DAILY 11/03/14 [History] Potassium Chloride [Klor-Con M20] 20 meq PO DAILY 09/03/15 [History] lamoTRIgine [LaMICtal] 175 mg PO BID 09/03/15 [History] Cholecalciferol (Vitamin D3) [Vitamin D3] 1,000 unit PO DAILY 02/11/17 [History] ARIPiprazole [Abilify] 20 mg PO BEDTIME 07/28/19 [History] Acetaminophen [Tylenol Extra Strength] 500 mg PO Q6HR PRN 07/28/19 [History] FLUoxetine HCl [Prozac] 30 mg PO DAILY 07/28/19 [History] Lanolin/Mineral Oil [Eucerin Original Lotion] 1 inch TOP BID PRN 07/28/19 [ History] Pramipexole Di-HCl [Mirapex] 2.5 mg PO BEDTIME 07/28/19 [History] SUMAtriptan Succinate [Imitrex] 100 mg PO ASDIRECTED PRN MDD 200 mg 07/28/19 [ History] Topiramate [Topamax] 50 mg PO BID 07/28/19 [History] Triamcinolone Acetonide [Triamcinolone Acetonide 0.5%] 0.5 percent TOP BID PRN 07/28/19 [History] LORazepam [Lorazepam] 0.5 mg PO DAILY PRN 01/20/20 [History] Loratadine 10 mg PO DAILY 01/20/20 [History] OLANZapine [Olanzapine] 7.5 mg PO DAILY 01/20/20 [History] traZODone HCl [Trazodone HCl] 1 - 2 tab PO BEDTIME PRN 01/20/20 [History] Past Medical History HEENT History: Reports: Cataract Other HEENT History: had cataract surgery, wears glasses Cardiovascular History: Reports: Other (See Below) Other Cardiovascular History: States was told some enzyme was elevated in [place] and now takes aspirin Genitourinary History: Reports: Renal Disease Musculoskeletal History: Reports: Arthritis, Back Pain, Chronic Neurological History: Reports: Migraines Psychiatric History: Reports: Depression, Schizophrenia Other Psychiatric History: Has had ECT x 2, Dx Schizo Affective Depression Endocrine/Metabolic History: Reports: Hypothyroidism, IDDM Other Endocrine/Metabolic History: Diabetes insipidus - Past Surgical History HEENT Surgical History: Reports: Cataract Surgery GI Surgical History: Reports: Hernia Repair/Other Musculoskeletal Surgical History: Reports: Carpal Tunnel, Knee Replacement Social & Family History - Family History Family Medical History: Noncontributory - Caffeine Use Caffeine Use: Reports: Coffee Caffeine Use Comment: 2 cups daily ED ROS GENERAL - Review of Systems Review Of Systems: Comprehensive ROS is negative, except as noted in HPI. ED EXAM, BEHAVIORAL HEALTH - Physical Exam Exam: See Below Exam Limited By: No Limitations General Appearance: WD/WN, No Apparent Distress Eye Exam: Bilateral Eye: PERRL Ears: Normal External Exam Nose: Normal Inspection Throat/Mouth: Normal Inspection Head: Atraumatic, Normocephalic Neck: Normal Inspection, Full Range of Motion Respiratory/Chest: No Respiratory Distress Extremities: Normal Inspection Neurological: Alert, Normal Mood/Affect, Normal Cognition, Normal Gait, Oriented x 3 Psychiatric: Alert, Normal Affect, Normal Cognition (baseline) COURSE, BEHAVIORAL HEALTH COMP - Course Vital Signs: Last Vital Signs Temp 36.6 C 01/20/20 16:36 Pulse 93 01/20/20 16:36 Resp 20 01/20/20 16:36 BP 156/89 H 01/20/20 16:36 Pulse Ox 100 01/20/20 16:36 Re-Assessment/Re-Exam: This patient presents for evaluation of suicidal ideation. He was assessed by crisis staff via [facility] telemedicine. Together we discussed this patient and considered various recommendations. On reassessment, the patient states he feels he will be safe at home with a plan for regular contact with his daughter by phone, his sister in person, and his PHN twice per week. He will take lorazepam daily in the afternoon to help with his anxiety. This plan was discussed and the patient agrees to it as well. Departure - Departure Time of Disposition: 18:25 Disposition: Home, Self-Care 01 Condition: Good Clinical Impression: Mental health problem - Discharge Information Referrals: PCP,None [Primary Care Provider] - Forms: ED Department Discharge Additional Instructions: Continue with plan discussed with Nallely in public health, with more frequent check ins with family and public health nurse. Also take prescribed Ativan as directed every afternoon. Follow up with regular providers as needed/ scheduled. Call with any questions. Sepsis Event Note - Evaluation Sepsis Screening Result: No Definite Risk - Focused Exam Vital Signs: Vital Signs Temp Pulse Resp BP Pulse Ox 01/20/20 16:36 36.6 C 93 20 156/89 H 100 Date Exam was Performed: 01/20/20 Time Exam was Performed: 18:27
== END 2020-01-20 18:24 | disposition home or self-care (01) ==
LOC: LB.ED 16:27 → EEVIPCON 16:27 → LB.ED 18:24
DX: F99 Mental disorder, not otherwise specified (principal); E11.9 Type 2 diabetes mellitus without complications; M19.90 Unspecified osteoarthritis, unspecified site; F32.9 Major depressive disorder, single episode, unspecified; F41.9 Anxiety disorder, unspecified; E03.9 Hypothyroidism, unspecified; Z79.899 Other long term (current) drug therapy; Z79.82 Long term (current) use of aspirin
CPT/HCPCS: 99283; 99284

== ENCOUNTER 2020-02-06 16:29 | Emergency (ER) | payer MEDICARE ==
[2020-02-06 18:36] VITALS: BP 150/94; PULSE 92
[2020-02-06] MEDS: LORazepam 1 MG Tab PO ONE (18:56)
[2020-02-06] MEDS: LORazepam 1 MG Tab ONE (18:58)
--- NOTE | 2020-02-06 19:26 | EDM.PDOC ---
ED HPI GENERAL MEDICAL PROBLEM - General Chief Complaint: Behavioral/Psych Stated Complaint: cant think, not taking medications Time Seen by Provider: 02/06/20 18:15 - History of Present Illness INITIAL COMMENTS - FREE TEXT/NARRATIVE: Gregor presents to the emergency room tonight to be evaluated for medical clearance to drive to [place]. He had an extended hospitalization initiated in September for disorganized thinking, psychosis, and hyperverbal behavior. He was doing well at [facility] after his hospitalization, and on 12/30/19, he was discharged home. He was set up with weekly tele-psych visits , as well as evaluation with a public health nurse that was supposed to occur on Sunday. His sister made sure that he was given the opportunity to take the bus down to see her. Unfortunately, Gregor tried to avoid this. In trying to determine why, she felt that it was because he did not know exactly what to say to people, and for this reason had some anxiety about being exposed to people during public transportation. She would then oftentimes be forced to drive Gregor into the hospital for his evaluation with this public health nurse. She would set up his medications. It has become apparent, that Gregor worries about medications causing untoward side effects, mainly disorganized thinking. He states that his thoughts to start clear. He states that he is trying to speak with others but is unable to formulate exactly what he is wanting to say in his mind. His other sister describes hallucinations of a radio that is programming information into his brain, as well as, thinking that his stomach is "too small ". He has had no recent suicidal ideation. His sisters had called to set up hospitalization with his psychiatrist in [facility]. They were told that they would like a routine medical physical exam to ensure he was safe for transport via private vehicle. Gregor sisters have the bed secured in [place], and they are expecting their arrival soon. In questioning whether or not he needed labs as part of work-up here, they are certain that his psychiatrist will obtain the appropriate studies at the [facility], and are requesting to be discharged to "get him on the road as early as possible tonight". Again, he has had no suspicion for self-harm or any other aggressive physical behavior to others. His sisters state that he has had ongoing psychiatric issues along this nature and severity since the age of 12 and feel very comfortable taking him over to [facility] as previously arranged. - Related Data Allergies Allergy/AdvReac Type Severity Reaction Status Date / Time No Known Allergies Allergy Verified 02/06/20 18:07 Home Meds: Home Meds Aspirin [Halfprin] 81 mg PO DAILY 11/03/14 [History] Cinacalcet [Sensipar] 30 mg PO DAILY 11/03/14 [History] Glucosam/Chond/Collagen/Hyalur [Glucosamine Chondroitin] 1 each PO DAILY [History] Latanoprost [Xalatan] 1 drop OP DAILY 11/03/14 [History] Levothyroxine Sodium [Levoxyl] 88 mcg PO DAILY 11/03/14 [History] [place]-3 Fatty Acids [[place]-3] 1,000 mg PO BID 11/03/14 [History] Sennosides/Docusate Sodium [Senna-Docusate Sodium] 2 tab PO BEDTIME 11/03/14 [ History] Simvastatin [Zocor] 20 mg PO BEDTIME 11/03/14 [History] buPROPion HCl [Wellbutrin SR] 450 mg PO DAILY 11/03/14 [History] Potassium Chloride [Klor-Con M20] 20 meq PO DAILY 09/03/15 [History] lamoTRIgine [LaMICtal] 175 mg PO BID 09/03/15 [History] Cholecalciferol (Vitamin D3) [Vitamin D3] 1,000 unit PO DAILY 02/11/17 [History] ARIPiprazole [Abilify] 20 mg PO BEDTIME 07/28/19 [History] Acetaminophen [Tylenol Extra Strength] 500 mg PO Q6HR PRN 07/28/19 [History] FLUoxetine HCl [Prozac] 30 mg PO DAILY 07/28/19 [History] Lanolin/Mineral Oil [Eucerin Original Lotion] 1 inch TOP BID PRN 07/28/19 [ History] Pramipexole Di-HCl [Mirapex] 2.5 mg PO BEDTIME 07/28/19 [History] SUMAtriptan Succinate [Imitrex] 100 mg PO ASDIRECTED PRN MDD 200 mg 07/28/19 [ History] Topiramate [Topamax] 50 mg PO BID 07/28/19 [History] Triamcinolone Acetonide [Triamcinolone Acetonide 0.5%] 0.5 percent TOP BID PRN 07/28/19 [History] LORazepam [Lorazepam] 0.5 mg PO DAILY PRN 01/20/20 [History] Loratadine 10 mg PO DAILY 01/20/20 [History] OLANZapine [Olanzapine] 7.5 mg PO DAILY 01/20/20 [History] traZODone HCl [Trazodone HCl] 1 - 2 tab PO BEDTIME PRN 01/20/20 [History] Past Medical History HEENT History: Reports: Cataract Other HEENT History: had cataract surgery, wears glasses Cardiovascular History: Reports: Other (See Below) Other Cardiovascular History: States was told some enzyme was elevated in [place] and now takes aspirin Genitourinary History: Reports: Renal Disease Musculoskeletal History: Reports: Arthritis, Back Pain, Chronic Neurological History: Reports: Migraines Psychiatric History: Reports: Bipolar, Depression, Schizophrenia Other Psychiatric History: Has had ECT x 2, Dx Schizo Affective Depression Endocrine/Metabolic History: Reports: Hypothyroidism, IDDM Other Endocrine/Metabolic History: Diabetes insipidus - Past Surgical History HEENT Surgical History: Reports: Cataract Surgery GI Surgical History: Reports: Hernia Repair/Other Male Surgical History: Reports: Other (See Below) Other Male Surgeries/Procedures: Hx CKD in 2018 GFR low at that time Musculoskeletal Surgical History: Reports: Carpal Tunnel, Knee Replacement Social & Family History - Family History Family Medical History: Noncontributory - Tobacco Use Smoking Status *Q: Never Smoker - Caffeine Use Caffeine Use: Reports: Coffee Caffeine Use Comment: 2 cups daily - Recreational Drug Use Recreational Drug Use: No ED ROS GENERAL - Review of Systems Review Of Systems: Unable To Obtain Reason Not Obtained: Complicated by his schizophrenia but complete review appears nega - Physical Exam Exam: See Below Exam Limited By: Other (Psychiatric issues) General Appearance: Alert, WD/WN, No Apparent Distress Eye Exam: Bilateral Eye: EOMI Ears: Normal External Exam, Hearing Grossly Normal Nose: Normal Inspection Throat/Mouth: Normal Inspection, Normal Lips, Normal Voice, No Airway Compromise Head Exam: Atraumatic, Normocephalic Neck: Normal Inspection, Supple, Non-Tender. No: Lymphadenopathy (R), Lymphadenopathy (L), Thyromegaly Respiratory/Chest: No Respiratory Distress, Lungs Clear, Normal Breath Sounds. No: Rales, Rhonchi, Wheezing Cardiovascular: Regular Rate, Rhythm. No: No Gallop, No Murmur GI/Abdominal: Normal Bowel Sounds, Soft, Non-Tender Neuro Exam (Abbreviated): Alert, Oriented, CN II-XII Intact, Normal Cognition, Normal Gait, No Motor/Sensory Deficits Extremities: Normal Inspection, Normal Range of Motion, Non-Tender, No Pedal Edema, Normal Capillary Refill Psychiatric: Flat Affect, Other (Seems to speak in partial sentences and overall seems to be reasonably oriented but his thought process is clearly somewhat tangential without evidence of hallucinations throughout the encounter) Skin Exam: Warm, Dry, Intact Course - Vital Signs Text/Narrative:: Spoke at length with the patient reviewed his chart and discussed disposition with his family, it seemed apparent to me and the 2 RNs present that he was being admitted directly through his psychiatrist, but we did discuss usual [place] issues and they were happy to sign this form so we could be covered. Before I knew about the above plan, I had put in some orders for imaging and labs, but we all decided together along with Gregor that it seems this is pretty clearly a psychiatric issue until proven otherwise, and they would likely draw the appropriate studies on the receiving end. I had also ordered an EKG merrily to document his QT interval as I cannot see where this has been done recently. I actually ordered these labs before coming to the conclusion that Gregor's presentation of altered mentation seems to be consistent with his usual schizophrenia exacerbations per his family who have known him quite a while, and they are in agreement with returning to the plan that was initiated several months ago because he has had continual issues since his discharge home on 2019. In explaining this to Gregor, he said he was a bit anxious about things, and he did not take his lorazepam earlier, so he was provided with 1 mg orally prior to his departure and was otherwise discharged in good condition. Family was appreciative and will let us know if any other concerns arise. We otherwise sent documentation from our medical records in order to further his coordination of care, although it seems that his psychiatrist probably has most of the relevant medical records. Last Recorded V/S: Last Vital Signs Temp 97.4 F 02/06/20 18:09 Pulse 92 02/06/20 18:09 Resp 20 02/06/20 18:09 BP 150/94 H 02/06/20 18:09 Pulse Ox 99 02/06/20 18:09 - Orders/Labs/Meds Orders: Active Orders 24 hr Category Date Time Status EKG Documentation Completion [RC] ASDIRECTED Care 02/06/20 18:20 Inactive Head wo Cont [CT] Stat Exams 02/06/20 18:19 Stop Req EKG 12 Lead [EK] Stat Ther 02/06/20 18:19 Stop Req Meds: Medications Discontinued Medications Generic Name Dose Route Start Last Admin Trade Name Evy PRN Reason Stop Dose Admin Lorazepam 1 mg 02/06/20 18:54 02/06/20 18:56 Ativan PO 02/06/20 18:55 1 mg ONETIME ONE Administration Lorazepam Confirm 02/06/20 19:02 02/06/20 18:58 Ativan Administered 02/06/20 19:03 Not Given Dose 1 mg .ROUTE .STK-MED ONE Departure - Departure Time of Disposition: 19:00 Disposition: Home, Self-Care 01 Clinical Impression: Schizophrenia Qualifiers: Schizophrenia type: unspecified Qualified Code(s): F20.9 - Schizophrenia, unspecified - Discharge Information Referrals: PCP,None [Primary Care Provider] - Forms: ED Department Discharge Care Plan Goals: To follow up with [facility], Dr. Ontiveros. Sisters already arranged this and they wanted him seen to make sure he was ok to travel. Sepsis Event Note - Evaluation Sepsis Screening Result: No Definite Risk - Focused Exam Vital Signs: Vital Signs Temp Pulse Resp BP Pulse Ox 02/06/20 18:09 97.4 F 92 20 150/94 H 99 Date Exam was Performed: 02/06/20 Time Exam was Performed: 19:13 - My Orders Last 24 Hours: My Active Orders 02/06/20 18:19 Head wo Cont [CT] Stat EKG 12 Lead [EK] Stat 02/06/20 18:20 EKG Documentation Completion [RC] ASDIRECTED - Assessment/Plan Last 24 Hours: My Active Orders 02/06/20 18:19 Head wo Cont [CT] Stat EKG 12 Lead [EK] Stat 02/06/20 18:20 EKG Documentation Completion [RC] ASDIRECTED
== END 2020-02-06 19:00 | disposition home or self-care (01) ==
LOC: LB.ED 16:29
DX: F20.9 Schizophrenia, unspecified (principal); M19.90 Unspecified osteoarthritis, unspecified site; G43.909 Migraine, unspecified, not intractable, without status migrainosus; F31.9 Bipolar disorder, unspecified; E11.9 Type 2 diabetes mellitus without complications; E03.9 Hypothyroidism, unspecified; Z79.82 Long term (current) use of aspirin; Z79.899 Other long term (current) drug therapy
CPT/HCPCS: 99283; 99284; A9270-GY

== ENCOUNTER 2020-03-09 13:00 | Observation (INO) | payer MEDICARE ==
[2020-03-09] MEDS ORDERED: LORazepam 2 MG/ML SDV IM ONE ×2 (13:33→18:59)
[2020-03-09] MEDS ORDERED: diphenhydrAMINE 50 MG/ML SDV IM ONE ×2 (13:33→18:59)
[2020-03-09] MEDS ORDERED: Haloperidol Lactate 5 MG/ML SDV IM ONE ×2 (13:33→18:59)
--- NOTE | 2020-03-09 14:10 | EDM.PDOCBH ---
ED HPI GENERAL MEDICAL PROBLEM - General Chief Complaint: Behavioral/Psych Stated Complaint: AGGITATION INCREASED BEHAVIORS Time Seen by Provider: 03/09/20 13:15 Source of Information: Reports: Patient, [facility] Records History Limitations: Reports: No Limitations, Combative/Threatening, Uncooperative - History of Present Illness INITIAL COMMENTS - FREE TEXT/NARRATIVE: This patient presents to the ED for evaluation of behavioral health concerns. He has a history of schizoaffective disorder with bipolar disease. He is a [facility] of the [facility] and had been living in an apartment in [facility] with [facility] from [facility] and a [facility]. He was recently admitted to [facility] in [place] (02/08/2020) for deterioration in his mental health and discharged to the [facility] (care home facility) on 2019. Since admission there he has become increasingly paranoid and believes that the staff is poisoning him in his food and giving him the wrong medications. He has begun refusing his medications, and has been refusing to eat or drink. He has been verbally violent to nursing staff and they are increasingly concerned about his behavior. He has not taken his medications for several days. Staff is reporting an escalation in his behavior that seems to be related to his lack of medications. The patient denies any specific pain or difficulty breathing. He denies nausea, vomiting, diarrhea, headache. He has no history of cough or shortness of breath. He has been followed long-term by Dr. Ilia Foss, psychiatry who I spoke with about his status. Dr. Foss recommends a return to inpatient care. - Related Data Allergies Allergy/AdvReac Type Severity Reaction Status Date / Time No Known Allergies Allergy Verified 03/09/20 13:57 Home Meds: Home Meds Aspirin [Halfprin] 81 mg PO DAILY 11/03/14 [History] Cinacalcet [Sensipar] 30 mg PO DAILY 11/03/14 [History] Glucosam/Chond/Collagen/Hyalur [Glucosamine Chondroitin] 1 each PO DAILY [History] Latanoprost [Xalatan] 1 drop OP DAILY 11/03/14 [History] Levothyroxine Sodium [Levoxyl] 88 mcg PO DAILY 11/03/14 [History] [place]-3 Fatty Acids [[place]-3] 1,000 mg PO BID 01/13/15 [History] Sennosides/Docusate Sodium [Senna-Docusate Sodium] 2 tab PO BEDTIME 11/03/14 [ History] Simvastatin [Zocor] 20 mg PO BEDTIME 11/03/14 [History] buPROPion HCL [Wellbutrin SR] 150 mg PO DAILY 11/03/14 [History] Potassium Chloride [Klor-Con M20] 20 meq PO DAILY 09/03/15 [History] lamoTRIgine [LaMICtal] 175 mg PO BID 09/03/15 [History] Cholecalciferol (Vitamin D3) [Vitamin D3] 1,000 unit PO DAILY 02/11/17 [History] ARIPiprazole [Abilify] 20 mg PO BEDTIME 07/28/19 [History] Acetaminophen [Tylenol Extra Strength] 500 mg PO Q6HR PRN 07/28/19 [History] FLUoxetine HCl [Prozac] 10 mg PO DAILY 07/28/19 [History] Lanolin/Mineral Oil [Eucerin Original Lotion] 1 inch TOP BID PRN 07/28/19 [ History] Pramipexole Di-HCl [Mirapex] 2.5 mg PO BEDTIME 07/28/19 [History] SUMAtriptan succinate [Imitrex] 100 mg PO ASDIRECTED PRN MDD 200 mg 07/28/19 [ History] Topiramate [Topamax] 50 mg PO BID 07/28/19 [History] Triamcinolone Acetonide [Triamcinolone Acetonide 0.5%] 0.5 percent TOP BID PRN 07/28/19 [History] LORazepam [Lorazepam] 0.5 mg PO TID 01/20/20 [History] Loratadine 10 mg PO DAILY 01/20/20 [History] OLANZapine [Olanzapine] 7.5 mg PO DAILY 01/20/20 [History] traZODone HCl [Trazodone HCl] 1 - 2 tab PO BEDTIME PRN 01/20/20 [History] Past Medical History HEENT History: Reports: Cataract Other HEENT History: had cataract surgery, wears glasses Cardiovascular History: Reports: Other (See Below) Other Cardiovascular History: States was told some enzyme was elevated in [place] and now takes aspirin Genitourinary History: Reports: Renal Disease Musculoskeletal History: Reports: Arthritis, Back Pain, Chronic Neurological History: Reports: Migraines Psychiatric History: Reports: Bipolar, Depression, Schizophrenia Other Psychiatric History: Has had ECT x 2, Dx Schizo Affective Depression Endocrine/Metabolic History: Reports: Hypothyroidism, IDDM Other Endocrine/Metabolic History: Diabetes insipidus - Past Surgical History HEENT Surgical History: Reports: Cataract Surgery GI Surgical History: Reports: Hernia Repair/Other Male Surgical History: Reports: Other (See Below) Other Male Surgeries/Procedures: Hx CKD in 2018 GFR low at that time Musculoskeletal Surgical History: Reports: Carpal Tunnel, Knee Replacement Social & Family History - Family History Family Medical History: Noncontributory - Caffeine Use Caffeine Use: Reports: Coffee Caffeine Use Comment: 2 cups daily ED ROS GENERAL - Review of Systems Review Of Systems: See Below Constitutional: Denies: Fever, Decreased Appetite, Weight Loss HEENT: Reports: No Symptoms Respiratory: Denies: Shortness of Breath, Cough Cardiovascular: Denies: Chest Pain GI/Abdominal: Reports: No Symptoms. Denies: Abdominal Pain, Diarrhea : Reports: No Symptoms Musculoskeletal: Reports: No Symptoms Skin: Reports: No Symptoms Neurological: Reports: No Symptoms Psychiatric: Reports: Agitation, Anxiety ED EXAM, BEHAVIORAL HEALTH - Physical Exam Exam: See Below Exam Limited By: Other (cooperative with staff in quiet, controlled environment) General Appearance: Alert, No Apparent Distress Eye Exam: Bilateral Eye: PERRL Ears: Normal External Exam, Hearing Grossly Normal Nose: Normal Inspection Throat/Mouth: Normal Inspection, Normal Oropharynx, Normal Voice, No Airway Compromise Head: Atraumatic, Normocephalic Neck: Normal Inspection, Supple, Non-Tender, Full Range of Motion Respiratory/Chest: No Respiratory Distress, Lungs Clear, Normal Breath Sounds, No Accessory Muscle Use Cardiovascular: Regular Rate, Rhythm GI/Abdominal: Normal Bowel Sounds, Soft, Non-Tender, No Distention Neurological: Alert Psychiatric: Alert, Depressed Mood, Flat Affect, Agitated, Non-Communicative, Uncooperative, Paranoid Thoughts. No: Homicidal Thoughts, Suicidal Plan, Suicidal Thoughts, Auditory Hallucinations, Visual Hallucinations Skin Exam: Warm, Dry, Intact COURSE, BEHAVIORAL HEALTH COMP - Course Vital Signs: Last Vital Signs Temp 36.6 C 03/09/20 16:12 Pulse 68 03/09/20 16:12 Resp 18 03/09/20 16:12 BP 126/81 03/09/20 16:12 Pulse Ox 100 03/09/20 16:12 Orders, Labs, Meds: Laboratory Tests 03/09/20 03/09/20 03/09/20 Range/Units 14:00 14:00 14:55 WBC 6.0 D (4.0-11.0) K/uL RBC 4.47 L (4.50-6.50) M/uL Hgb 13.5 (13.0-18.0) g/dL Hct 40.5 (40.0-54.0) % MCV 91 (76-96) fL MCH 30.2 (27.0-32.0) pg MCHC 33.3 (31.0-35.0) g/dL RDW 13.4 (11.0-16.0) % Plt Count 200 D (150-400) K/uL MPV 10.9 H (6.0-10.0) fL Neut % (Auto) 67.5 (45.0-70.0) % Lymph % (Auto) 20.1 (20.0-40.0) % [place]cd[place]ough % (Auto) 11.9 H (3.0-10.0) % Eos % (Auto) 0.2 L (1.0-5.0) % Baso % (Auto) 0.3 (0.0-0.5) % Neut # (Auto) 4.04 (2.00-7.50) K/uL Lymph # (Auto) 1.20 L (1.50-4.00) K/uL Mcdonough # (Auto) 0.71 (0.20-0.80) K/uL Eos # (Auto) 0.01 L (0.04-0.40) K/uL Baso # (Auto) 0.02 (0.02-0.10) K/uL Sodium 139 (136-145) mmol/L Potassium 3.8 (3.5-5.1) mmol/L Chloride 101 (98-107) mmol/L Carbon Dioxide 21.9 (21.0-32.0) mmol/L Anion Gap 19.9 H (5.0-15.0) mmol/L BUN 35 H (8-26) mg/dL Creatinine 2.36 H (0.70-1.30) mg/dL Est Cr Clr Drug Dosing 25.78 mL/min Estimated GFR (MDRD) 28 L (>60) MLS/MIN BUN/Creatinine Ratio 14.8 (6-25) Glucose 99 (74-100) mg/dL Calcium 9.2 (8.5-10.1) mg/dL TSH, Ultra Sensitive 6.459 H D (0.358-3.740) uIU/mL Urine Color Yellow Urine Appearance Clear (CLEAR) Urine pH 5.5 (5.0-8.0) Ur Specific [place] 1.015 (1.003-1.030) Urine Protein 100 H (NEGATIVE) mg/dL Urine Glucose (UA) Negative (NEGATIVE) mg/dL Urine Ketones Trace H (NEGATIVE) mg/dL Urine Occult Blood Small H (NEGATIVE) Urine Nitrite Negative (NEGATIVE) Urine Bilirubin Negative (NEGATIVE) Urine Urobilinogen 0.2 (0.2-1.0) E.U./dL Ur Leukocyte Esterase Negative (NEGATIVE) U Hyaline Cast (Auto) Rare /HPF Urine RBC 0-5 H /HPF Urine WBC Not Reportable Medications Discontinued Medications Generic Name Dose Route Start Last Admin Trade Name Freq PRN Reason Stop Dose Admin Diphenhydramine HCl 50 mg 03/09/20 13:33 03/09/20 13:35 Benadryl IM 03/09/20 13:34 50 mg ONETIME ONE Administration Haloperidol Lactate 5 mg 03/09/20 13:33 03/09/20 13:35 Haldol IM 03/09/20 13:34 5 mg ONETIME ONE Administration Lorazepam 2 mg 03/09/20 13:33 03/09/20 13:35 Ativan IM 03/09/20 13:34 2 mg ONETIME ONE Administration Re-Assessment/Re-Exam: Patient anxious and agitated on transfer to the ED; medications given and lab work obtained. Information sent to [facility] to possible transfer of patient to that unit. They denies the transfer. Information sent to [facility]. Awaiting further information. 17:46 [facility] reports that they have no beds available. They will take the patient's information and review it for potential admission when they have a bed available. The patient will be admitted on observation status in the meantime. Departure - Departure Time of Disposition: 17:50 Disposition: Refer to Observation Condition: Good Clinical Impression: Behavioral and psychological symptoms of dementia - Discharge Information *PRESCRIPTION DRUG MONITORING PROGRAM REVIEWED*: Not Applicable Referrals: PCP,None [Primary Care Provider] - Forms: ED Department Discharge Sepsis Event Note - Evaluation Sepsis Screening Result: No Definite Risk - Focused Exam Vital Signs: Vital Signs Temp Temp Pulse Resp BP Pulse Ox 03/09/20 16:12 36.6 C 68 18 126/81 100 03/09/20 14:25 67 18 100 03/09/20 13:18 36.4 C 36.4 C 67 26 H 138/94 H 100 Date Exam was Performed: 03/09/20 Time Exam was Performed: 17:05
[2020-03-09] MEDS ORDERED: LANOLIN TOP PRN (18:32)
[2020-03-09] MEDS ORDERED: TRAZODONE HCL PO PRN (18:32)
[2020-03-09] MEDS ORDERED: ACETAMINOPHEN 500 MG PO PRN (18:32)
[2020-03-09] MEDS ORDERED: SUMATRIPTAN SUCCINATE 100 MG PO PRN (18:32)
[2020-03-09] MEDS ORDERED: MINERAL OIL TOP PRN (18:32)
--- NOTE | 2020-03-09 18:58 | PCM.HP.2 ---
H&P History of Present Illness - General Date of Service: 03/09/20 Admit Problem/Dx: Admission Diagnosis/Problem Admission Diagnosis/Problem Behavioral disorder This patient presents to the ED from the [facility] for behavioral issues. He was admitted to the [facility] approximately 1 week ago following an admission to [facility]. Since admission to the [facility] he has been refusing to eat, drink fluids, and take his medications. As a result, his behavioral outbursts have increased in frequency and he has become quite uncooperative with the nursing staff. I spoke with his psychiatrist by phone today who recommended a senior behavioral care placement; however, there are no available beds. Source of Information: Patient, Snf Records, RN - History of Present Illness Duration of Symptoms: Reports: Getting Worse - Related Data Allergies/Adverse Reactions: Allergies Allergy/AdvReac Type Severity Reaction Status Date / Time No Known Allergies Allergy Verified 03/09/20 13:57 Home Medications: Home Meds Aspirin [Halfprin] 81 mg PO DAILY 11/03/14 [History] Cinacalcet [Sensipar] 30 mg PO DAILY 11/03/14 [History] Glucosam/Chond/Collagen/Hyalur [Glucosamine Chondroitin] 1 each PO DAILY [History] Latanoprost [Xalatan] 1 drop OP DAILY 11/03/14 [History] Levothyroxine Sodium [Levoxyl] 88 mcg PO DAILY 11/03/14 [History] Milan-3 Fatty Acids [Milan-3] 1,000 mg PO BID 11/03/14 [History] Sennosides/Docusate Sodium [Senna-Docusate Sodium] 2 tab PO BEDTIME 11/03/14 [ History] Simvastatin [Zocor] 20 mg PO BEDTIME 11/03/14 [History] buPROPion HCL [Wellbutrin SR] 150 mg PO DAILY 11/03/14 [History] Potassium Chloride [Klor-Con M20] 20 meq PO DAILY 09/03/15 [History] lamoTRIgine [LaMICtal] 175 mg PO BID 09/03/15 [History] Cholecalciferol (Vitamin D3) [Vitamin D3] 1,000 unit PO DAILY 02/11/17 [History] ARIPiprazole [Abilify] 20 mg PO BEDTIME 07/28/19 [History] Acetaminophen [Tylenol Extra Strength] 500 mg PO Q6HR PRN 07/28/19 [History] FLUoxetine HCl [Prozac] 10 mg PO DAILY 07/28/19 [History] Lanolin/Mineral Oil [Eucerin Original Lotion] 1 inch TOP BID PRN 07/28/19 [ History] Pramipexole Di-HCl [Mirapex] 2.5 mg PO BEDTIME 07/28/19 [History] SUMAtriptan succinate [Imitrex] 100 mg PO ASDIRECTED PRN MDD 200 mg 07/28/19 [ History] Topiramate [Topamax] 50 mg PO BID 07/28/19 [History] Triamcinolone Acetonide [Triamcinolone Acetonide 0.5%] 0.5 percent TOP BID PRN 07/28/19 [History] LORazepam [Lorazepam] 0.5 mg PO TID 01/20/20 [History] Loratadine 10 mg PO DAILY 01/20/20 [History] OLANZapine [Olanzapine] 7.5 mg PO DAILY 01/20/20 [History] traZODone HCl [Trazodone HCl] 1 - 2 tab PO BEDTIME PRN 01/20/20 [History] Past Medical History HEENT History: Reports: Cataract Other HEENT History: had cataract surgery, wears glasses Cardiovascular History: Reports: Other (See Below) Other Cardiovascular History: States was told some enzyme was elevated in [place] and now takes aspirin Genitourinary History: Reports: Renal Disease Musculoskeletal History: Reports: Arthritis, Back Pain, Chronic Neurological History: Reports: Migraines Psychiatric History: Reports: Bipolar, Depression, Schizophrenia Other Psychiatric History: Has had ECT x 2, Dx Schizo Affective Depression Endocrine/Metabolic History: Reports: Hypothyroidism, IDDM Other Endocrine/Metabolic History: Diabetes insipidus - Past Surgical History HEENT Surgical History: Reports: Cataract Surgery GI Surgical History: Reports: Hernia Repair/Other Male Surgical History: Reports: Other (See Below) Other Male Surgeries/Procedures: Hx CKD in 2018 GFR low at that time Musculoskeletal Surgical History: Reports: Carpal Tunnel, Knee Replacement Social & Family History - Family History Family Medical History: Noncontributory - Tobacco Use Smoking Status *Q: Never Smoker Second Hand Smoke Exposure: No - Caffeine Use Caffeine Use: Reports: Coffee Caffeine Use Comment: 2 cups daily - Recreational Drug Use Recreational Drug Use: No H&P Review of Systems - Review of Systems: Review Of Systems: See Below General: Reports: No Symptoms HEENT: Reports: No Symptoms Pulmonary: Reports: No Symptoms Cardiovascular: Reports: No Symptoms Gastrointestinal: Reports: No Symptoms Genitourinary: Reports: No Symptoms Musculoskeletal: Reports: No Symptoms Skin: Reports: No Symptoms Psychiatric: Reports: Depression, Anxiety, Agitation, Hallucinations (Auditory) , Hallucinations (Visual) Neurological: Reports: No Symptoms Exam - Exam Exam: See Below - Vital Signs Vital Signs: Last Vital Signs Temp 36.6 C 03/09/20 16:12 Pulse 68 03/09/20 16:12 Resp 18 03/09/20 16:12 BP 126/81 03/09/20 16:12 Pulse Ox 100 03/09/20 16:12 Weight: 63.503 kg - Exam General: Alert, Oriented HEENT: PERRLA, Conjunctiva Clear, EACs Clear, EOMI, Nares Patent, Posterior Pharynx Clear, Pupils Equal, Pupils Reactive Neck: Supple, Trachea Midline Lungs: Clear to Auscultation, Normal Respiratory Effort Cardiovascular: Regular Rate, Regular Rhythm GI/Abdominal Exam: Normal Bowel Sounds, Soft, Non-Tender, No Organomegaly, No Distention Extremities: Normal Capillary Refill Skin: Warm, Dry, Intact Neuro Extensive - Mental Status: Alert, Oriented x3 Psychiatric: Alert, Normal Affect, Normal Mood, Hallucinations. No: Anxious, Agitated, Suicidal Ideation, Homicidal Ideation, Withdrawal Symptoms - Patient Data Lab Results Last 24 hrs: Laboratory Results - last 24 hr 03/09/20 03/09/20 03/09/20 Range/Units 14:00 14:00 14:55 WBC 6.0 D (4.0-11.0) K/uL RBC 4.47 L (4.50-6.50) M/uL Hgb 13.5 (13.0-18.0) g/dL Hct 40.5 (40.0-54.0) % MCV 91 (76-96) fL MCH 30.2 (27.0-32.0) pg MCHC 33.3 (31.0-35.0) g/dL RDW 13.4 (11.0-16.0) % Plt Count 200 D (150-400) K/uL MPV 10.9 H (6.0-10.0) fL Neut % (Auto) 67.5 (45.0-70.0) % Lymph % (Auto) 20.1 (20.0-40.0) % [place] % (Auto) 11.9 H (3.0-10.0) % Eos % (Auto) 0.2 L (1.0-5.0) % Baso % (Auto) 0.3 (0.0-0.5) % Neut # (Auto) 4.04 (2.00-7.50) K/uL Lymph # (Auto) 1.20 L (1.50-4.00) K/uL [place] # (Auto) 0.71 (0.20-0.80) K/uL Eos # (Auto) 0.01 L (0.04-0.40) K/uL Baso # (Auto) 0.02 (0.02-0.10) K/uL Sodium 139 (136-145) mmol/L Potassium 3.8 (3.5-5.1) mmol/L Chloride 101 (98-107) mmol/L Carbon Dioxide 21.9 (21.0-32.0) mmol/L Anion Gap 19.9 H (5.0-15.0) mmol/L BUN 35 H (8-26) mg/dL Creatinine 2.36 H (0.70-1.30) mg/dL Est Cr Clr Drug Dosing 25.78 mL/min Estimated GFR (MDRD) 28 L (>60) MLS/MIN BUN/Creatinine Ratio 14.8 (6-25) Glucose 99 (74-100) mg/dL Calcium 9.2 (8.5-10.1) mg/dL TSH, Ultra Sensitive 6.459 H D (0.358-3.740) uIU/mL Urine Color Yellow Urine Appearance Clear (CLEAR) Urine pH 5.5 (5.0-8.0) Ur Specific [place] 1.015 (1.003-1.030) Urine Protein 100 H (NEGATIVE) mg/dL Urine Glucose (UA) Negative (NEGATIVE) mg/dL Urine Ketones Trace H (NEGATIVE) mg/dL Urine Occult Blood Small H (NEGATIVE) Urine Nitrite Negative (NEGATIVE) Urine Bilirubin Negative (NEGATIVE) Urine Urobilinogen 0.2 (0.2-1.0) E.U./dL Ur Leukocyte Esterase Negative (NEGATIVE) U Hyaline Cast (Auto) Rare /HPF Urine RBC 0-5 H /HPF Urine WBC Not Reportable Result Diagrams: 03/09/20 14:00 03/09/20 14:00 Sepsis Event Note - Evaluation Sepsis Screening Result: No Definite Risk - Focused Exam Vital Signs: Vital Signs Temp Temp Pulse Resp BP Pulse Ox 03/09/20 16:12 36.6 C 68 18 126/81 100 03/09/20 14:25 67 18 100 03/09/20 13:18 36.4 C 36.4 C 67 26 H 138/94 H 100 Date Exam was Performed: 03/09/20 Time Exam was Performed: 18:53 - Problem List (1) Behavioral and psychological symptoms of dementia SNOMED Code(s): 83497257546835 ICD Code: F03.91 - UNSPECIFIED DEMENTIA WITH BEHAVIORAL DISTURBANCE Status : Acute Priority: High Current Visit: Yes Problem List Initiated/Reviewed/Updated: Yes Orders Last 24hrs: Active Orders 24 hr Category Date Time Status Admission Status [Patient Status] [ADT] Routine ADT 03/09/20 18:07 Active Patient Status [ADT] Routine ADT 03/09/20 18:30 Ordered Oxygen Therapy [RC] PRN Care 03/09/20 18:30 Ordered Vital Signs [RC] Q4H Care 03/09/20 18:30 Ordered Regular Diet [DIET] Diet 03/10/20 Breakfast Ordered ARIPiprazole [Abilify] Med 03/09/20 20:00 Ordered 20 mg PO BEDTIME Acetaminophen [Tylenol Extra Strength] Med 03/09/20 18:32 Ordered 500 mg PO Q6HR PRN Aspirin [Halfprin] Med 03/10/20 08:00 Ordered 81 mg PO DAILY Cholecalciferol (Vitamin D3) [Vitamin D3] Med 03/10/20 08:00 Ordered 1,000 unit PO DAILY FLUoxetine [PROzac] Med 03/10/20 08:00 Ordered 40 mg PO DAILY Glucosam/Chond/Collagen/Hyalur [Glucosamine Chondroitin Med 03/10/20 08:00 Ordered ] 1 each PO DAILY LORazepam [Lorazepam] Med 03/09/20 20:00 Ordered 0.5 mg PO TID Lanolin/Mineral Oil [Eucerin Original Lotion] Med 03/09/20 18:32 Ordered 1 inch TOP BID PRN Latanoprost [Xalatan 0.005% Ophth Soln] Med 03/10/20 08:00 Ordered 1 drop OP DAILY Levothyroxine Sodium [Levoxyl] Med 03/10/20 08:00 Ordered 88 mcg PO DAILY Loratadine [Loratadine] Med 03/10/20 08:00 Ordered 10 mg PO DAILY OLANZapine [Olanzapine] Med 03/10/20 08:00 Ordered 7.5 mg PO DAILY Milan-3 Fatty Acids [Milan-3] Med 03/09/20 20:00 Ordered 1,000 mg PO BID Potassium Chloride [Klor-Con M20] Med 03/10/20 08:00 Ordered 20 meq PO DAILY Pramipexole Di-HCl [Mirapex] Med 03/09/20 20:00 Ordered 2.5 mg PO BEDTIME SUMAtriptan succinate [Imitrex] Med 03/09/20 18:32 Ordered 100 mg PO ASDIRECTED PRN Sennosides/Docusate Sodium [Senna-Docusate Sodium] Med 03/09/20 20:00 Ordered 2 tab PO BEDTIME Simvastatin [Zocor] Med 03/09/20 20:00 Ordered 20 mg PO BEDTIME Topiramate [Topamax] Med 03/09/20 20:00 Ordered 50 mg PO BID buPROPion HCL [Wellbutrin SR] Med 03/10/20 08:00 Ordered 150 mg PO DAILY buPROPion [Wellbutrin XL] Med 03/10/20 08:00 Ordered 150 mg PO DAILY buPROPion [Wellbutrin XL] Med 03/10/20 08:00 Ordered 300 mg PO DAILY traZODone HCl [Trazodone HCl] Med 03/09/20 18:32 Ordered 1 - 2 tab PO BEDTIME PRN Resuscitation Status Routine Resus Stat 03/09/20 18:29 Ordered Medication Orders Bupropion HCl (Wellbutrin Xl) 300 mg PO DAILY DANETTE Bupropion HCl (Wellbutrin Xl) 150 mg PO DAILY DAN[facility]TE Fluoxetine HCl (Prozac) 40 mg PO DAILY [facility]TE Non-Formulary Medication (Acetaminophen [Tylenol Extra Strength]) 500 mg PO Q6HR PRN PRN Reason: Pain Non-Formulary Medication (Aripiprazole [Abilify]) 20 mg PO BEDTIME [facility]AN[facility]TE Non-Formulary Medication (Aspirin [Halfprin]) 81 mg PO DAILY [facility] Non-Formulary Medication (Bupropion Hcl [Wellbutrin Sr]) 150 mg PO DAILY [facility] Non-Formulary Medication (Cholecalciferol (Vitamin D3) [Vitamin D3]) 1,000 unit PO DAILY [facility] Non-Formulary Medication (Glucosam/Chond/Collagen/Hyalur [Glucosamine Chondroitin]) 1 each PO DAILY [facility] Non-Formulary Medication (Lanolin/Mineral Oil [Eucerin Original Lotion]) 1 inch TOP BID PRN PRN Reason: Other Non-Formulary Medication (Latanoprost [Xalatan 0.005% [facility] Soln]) 1 drop OP DAILY [facility]TE Non-Formulary Medication (Levothyroxine Sodium [Levoxyl]) 88 mcg PO DAILY [facility] Non-Formulary Medication (Loratadine [Loratadine]) 10 mg PO DAILY [facility] Non-Formulary Medication (Lorazepam [Lorazepam]) 0.5 mg PO TID [facility]AN[facility]TE Non-Formulary Medication (Olanzapine [Olanzapine]) 7.5 mg PO DAILY [facility] Non-Formulary Medication (Milan-3 Fatty Acids [Milan-3]) 1,000 mg PO BID [facility]AN[facility]TE Non-Formulary Medication (Potassium Chloride [Klor-Con M20]) 20 meq PO DAILY [facility] Non-Formulary Medication (Pramipexole Di-Hcl [Mirapex]) 2.5 mg PO BEDTIME [facility]AN[facility]TE Non-Formulary Medication (Sennosides/Docusate Sodium [Senna-Docusate Sodium]) 2 tab PO BEDTIME [facility]TE Non-Formulary Medication (Simvastatin [Zocor]) 20 mg PO BEDTIME [facility]TE Non-Formulary Medication (Sumatriptan Succinate [Imitrex]) 100 mg PO ASDIRECTED PRN PRN Reason: Headache/Pain Non-Formulary Medication (Topiramate [Topamax]) 50 mg PO BID [facility]ANETTE Non-Formulary Medication (Trazodone Hcl [Trazodone Hcl]) 1 - 2 tab PO BEDTIME PRN PRN Reason: Insomnia - Mortality Measure Prognosis:: Good
[2020-03-09] MEDS ORDERED: Donepezil 5 MG Tab PO ONE (19:10)
[2020-03-09] MEDS ORDERED: LORazepam 2 MG/ML SDV IM PRN (19:10)
[2020-03-09] MEDS ORDERED: Haloperidol Lactate 5 MG/ML SDV IM PRN (19:10)
[2020-03-09] MEDS ORDERED: diphenhydrAMINE 50 MG/ML SDV IM PRN (19:10)
[2020-03-09] MEDS ORDERED: PRAMIPEXOLE 0.5 MG PO SCH (20:00)
[2020-03-09] MEDS ORDERED: ARIPIPRAZOLE 20 MG PO SCH (20:00)
[2020-03-09] MEDS ORDERED: DONEPEZIL 5 MG PO ONE (20:30)
[2020-03-09] MEDS: traZODone 50 MG Tab **OWN MED PO SCH (20:50)
[2020-03-09] MEDS: Simvastatin 20 MG Tab **OWN MED PO SCH (20:50)
[2020-03-09] MEDS: Docusate Sodium/Sennosides 50-8.6 MG Tab **OWN MED PO SCH (20:50)
[2020-03-09] MEDS: TOPIRAMATE 25 MG PO SCH (20:50)
[2020-03-09] MEDS: OLANZAPINE 7.5 MG PO SCH (22:00)
[2020-03-10] MEDS ORDERED: FLUoxetine 20 MG Cap PO SCH (08:00)
[2020-03-10] MEDS ORDERED: Non-Formulary Medication 1 Each (Latanoprost [Xalatan 0.005% Ophth Soln] 1 DROP) OP SCH ×2 (08:00→20:00)
[2020-03-10] MEDS ORDERED: OLANZAPINE 7.5 MG PO SCH (08:00)
[2020-03-10] MEDS ORDERED: BUPROPION HCL 150 MG PO SCH (08:00)
[2020-03-10] MEDS: Non-Formulary Medication 1 Each (Potassium Chloride [Klor-Con M20] 20 MEQ) PO SCH ×2 (09:48→11:52)
[2020-03-10] MEDS: FATTY ACIDS PO SCH ×2 (09:50→11:52)
[2020-03-10] MEDS: OMEGA PO SCH ×2 (09:50→11:52)
[2020-03-10] MEDS: TOPIRAMATE 25 MG PO SCH ×2 (11:50→19:58)
[2020-03-10] MEDS: Non-Formulary Medication 1 Each (Cholecalciferol (Vitamin D3) [Vitamin D3] 1,000 UNIT) PO SCH (11:51)
[2020-03-10] MEDS: Non-Formulary Medication 1 Each (Loratadine [Loratadine] 10 MG) PO SCH (11:51)
[2020-03-10] MEDS: Non-Formulary Medication 1 Each (Aspirin [Halfprin] 81 MG) PO SCH (11:51)
[2020-03-10] MEDS: LEVOTHYROXINE SODIUM 88 MCG PO SCH (11:51)
[2020-03-10] MEDS: buPROPion 300 MG Tab.ER PO SCH (11:52)
[2020-03-10] MEDS: buPROPion 150 MG Tab.ER PO SCH (11:53)
[2020-03-10] MEDS: DONEPEZIL 5 MG PO SCH (19:55)
[2020-03-10] MEDS: PRAMIPEXOLE 0.5 MG PO SCH (19:58)
[2020-03-10] MEDS: traZODone 50 MG Tab **OWN MED PO SCH (19:58)
[2020-03-10] MEDS: OLANZAPINE 7.5 MG PO SCH (19:58)
[2020-03-10] MEDS: Simvastatin 20 MG Tab **OWN MED PO SCH (19:59)
[2020-03-10] MEDS: ARIPIPRAZOLE 20 MG PO SCH (19:59)
[2020-03-10] MEDS: Docusate Sodium/Sennosides 50-8.6 MG Tab **OWN MED PO SCH (19:59)
[2020-03-10] MEDS ORDERED: Latanoprost 0.005% Ophth Soln 2.5 ML Bottle EYEBOTH SCH (20:00)
[2020-03-10] MEDS ORDERED: Donepezil 5 MG Tab PO SCH (20:00)
[2020-03-11] MEDS: TOPIRAMATE 25 MG PO SCH ×2 (08:16→20:09)
--- NOTE | 2020-03-11 12:42 | PCM.PN ---
- General Info Date of Service: 03/10/20 Admission Dx/Problem (Free Text): Admission Diagnosis/Problem Admission Diagnosis/Problem Behavioral disorder This patient presents to the ED from the [facility] for behavioral issues. He was admitted to the [facility] center approximately 1 week ago following an admission to [facility]. Since admission to the [facility] he has been refusing to eat, drink fluids, and take his medications. As a result, his behavioral outbursts have increased in frequency and he has become quite uncooperative with the nursing staff. I spoke with his psychiatrist by phone today who recommended a senior behavioral care placement; however, there are no available beds. Subjective Update: This patient has been cooperative with staff and has been taking medications mostly as prescribed. He was denies admission to [facility] as they state "he does not meet their criteria admission at this time." I have made contact with [facility] in [place] and [facility] in [place]; however, neither facility has beds available at this time. Functional Status: Reports: Pain Controlled - Review of Systems General: Reports: No Symptoms HEENT: Reports: No Symptoms Pulmonary: Reports: No Symptoms Cardiovascular: Reports: No Symptoms Gastrointestinal: Reports: No Symptoms Genitourinary: Reports: No Symptoms Musculoskeletal: Reports: No Symptoms Skin: Reports: No Symptoms Neurological: Reports: No Symptoms Psychiatric: Reports: Depression, Anxiety. Denies: Suicidal Ideation, Homicidal Ideation - Patient Data Vitals - Most Recent: Last Vital Signs Temp 36.6 C 03/10/20 20:00 Pulse 70 03/10/20 20:00 Resp 17 03/11/20 03:58 BP 128/74 03/10/20 20:00 Pulse Ox 97 03/10/20 20:00 Weight - Most Recent: 63.049 kg Med Orders - Current: Current Medications Bupropion HCl (Wellbutrin Xl) 300 mg PO DAILY [facility] Last Admin: 03/10/20 11:52 Dose: 300 mg Bupropion HCl (Wellbutrin Xl) 150 mg PO DAILY [facility]AN[facility]TE Last Admin: 03/10/20 11:53 Dose: 150 mg Diphenhydramine HCl (Benadryl) 50 mg IM ONETIME PRN PRN Reason: Agitation Donepezil HCl (Aricept) 5 mg PO BEDTIME [facility] Last Admin: 03/10/20 19:55 Dose: 5 mg Fluoxetine HCl (Prozac) 10 mg PO DAILY [facility] Haloperidol Lactate (Haldol) 5 mg IM ONETIME PRN PRN Reason: Agitation Latanoprost (Xalatan 0.005% Ophth Soln) 0 ml EYEBOTH BEDTIME [facility] Last Admin: 03/10/20 20:39 Dose: Not Given Lorazepam (Ativan) 2 mg IM ONETIME PRN PRN Reason: Agitation Non-Formulary Medication (Acetaminophen [Tylenol Extra Strength]) 500 mg PO Q6HR PRN PRN Reason: Pain Non-Formulary Medication (Aspirin [Halfprin]) 81 mg PO DAILY [facility] Last Admin: 03/10/20 11:51 Dose: 81 mg Non-Formulary Medication (Cholecalciferol (Vitamin D3) [Vitamin D3]) 1,000 unit PO DAILY [facility] Last Admin: 03/10/20 11:51 Dose: 1,000 unit Non-Formulary Medication (Glucosam/Chond/Collagen/Hyalur [Glucosamine Chondroitin]) 1 each PO DAILY [facility] Non-Formulary Medication (Lanolin/Mineral Oil [Eucerin Original Lotion]) 1 inch TOP BID PRN PRN Reason: Other Non-Formulary Medication (Levothyroxine Sodium [Levoxyl]) 88 mcg PO DAILY [facility] Last Admin: 03/10/20 11:51 Dose: 88 mcg Non-Formulary Medication (Loratadine [Loratadine]) 10 mg PO DAILY [facility] Last Admin: 03/10/20 11:51 Dose: 10 mg [place]-3 Fatty Acids 1,000 Mg Cap Own Med 1,000 mg PO DAILY [facility] Last Admin: 03/10/20 11:52 Dose: Not Given Non-Formulary Medication (Potassium Chloride [Klor-Con M20]) 20 meq PO DAILY [facility] Last Admin: 03/10/20 11:52 Dose: Not Given Non-Formulary Medication (Sumatriptan Succinate [Imitrex]) 100 mg PO ASDIRECTED PRN PRN Reason: Headache/Pain Aripiprazole ( Abilify) 20 Mg Tab * *Own Med 20 mg PO BEDTIME [facility] Last Admin: 03/10/20 19:59 Dose: 20 mg Lorazepam 0.5 Mg Tab (Own Med) 0.5 mg PO TID [facility] Last Admin: 05/21/20 08:16 Dose: 0.5 mg Pramipexole (Mirapex ) 0.5 Mg Tab Own Med 2.5 mg PO BEDTIME [facility] Last Admin: 03/10/20 19:58 Dose: 2.5 mg Fluoxetine 40mg (Capsule) 1 each PO DAILY [facility] Patient's Own Medication Olanzapine 7.5 Mg Tab 1 each PO BEDTIME [facility] Last Admin: 03/10/20 19:58 Dose: 1 each Senna/Docusate Sodium (Senna Plus) 2 tab PO BEDTIME [facility] Last Admin: 03/10/20 19:59 Dose: Not Given Simvastatin (Zocor) 20 mg PO BEDTIME [facility] Last Admin: 03/10/20 19:59 Dose: Not Given Topiramate (Topamax) 50 mg PO BID [facility] Last Admin: 03/11/20 08:16 Dose: 50 mg Trazodone HCl (Trazodone) 50 mg PO BEDTIME [facility] Last Admin: 03/10/20 19:58 Dose: 50 mg Discontinued Medications Diphenhydramine HCl (Benadryl) 50 mg IM ONETIME ONE Stop: 03/09/20 13:34 Last Admin: 03/09/20 13:35 Dose: 50 mg Diphenhydramine HCl (Benadryl) 50 mg IM ONETIME ONE Stop: 03/09/20 19:00 Donepezil HCl (Aricept) 5 mg PO ONETIME ONE Stop: 03/09/20 20:31 Last Admin: 03/09/20 20:50 Dose: 5 mg Donepezil HCl (Aricept) 5 mg PO BEDTIME [facility] Last Admin: 03/10/20 20:38 Dose: Not Given Haloperidol Lactate (Haldol) 5 mg IM ONETIME ONE Stop: 03/09/20 13:34 Last Admin: 03/09/20 13:35 Dose: 5 mg Haloperidol Lactate (Haldol) 5 mg IM ONETIME ONE Stop: 03/09/20 19:00 Lorazepam (Ativan) 2 mg IM ONETIME ONE Stop: 03/09/20 13:34 Last Admin: 03/09/20 13:35 Dose: 2 mg Lorazepam (Ativan) 2 mg IM ONETIME ONE Stop: 03/09/20 19:00 Aripiprazole ( Abilify) 20 Mg Tab * *Own Med 0 mg PO BEDTIME [facility] Last Admin: 03/09/20 20:50 Dose: 20 mg Non-Formulary Medication (Bupropion Hcl [Wellbutrin Sr]) 150 mg PO DAILY [facility] Non-Formulary Medication (Latanoprost [Xalatan 0.005% Ophth Soln]) 1 drop OP DAILY [facility] Last Admin: 03/10/20 19:05 Dose: Not Given Lorazepam 0.5 Mg Tab (Own Med) 0 mg PO TID [facility] Last Admin: 03/10/20 19:06 Dose: Not Given Non-Formulary Medication (Olanzapine [Olanzapine]) 7.5 mg PO DAILY [facility] Pramipexole (Mirapex ) 0.5 Mg Tab Own Med 0 mg PO BEDTIME [facility] Last Admin: 03/09/20 20:50 Dose: 2.5 mg Non-Formulary Medication (Trazodone Hcl [Trazodone Hcl]) 1 - 2 tab PO BEDTIME PRN PRN Reason: Insomnia Non-Formulary Medication (Latanoprost [Xalatan 0.005% Ophth Soln]) 1 drop OP BEDTIME [facility] Last Admin: 03/10/20 20:38 Dose: Not Given Sepsis Event Note - Evaluation Sepsis Screening Result: No Definite Risk - Focused Exam Vital Signs: Vital Signs Resp 03/11/20 03:58 17 Date Exam was Performed: 03/11/20 Time Exam was Performed: 12:38 - Problem List & Annotations (1) Behavioral and psychological symptoms of dementia SNOMED Code(s): 17176452415858 Code(s): F03.91 - UNSPECIFIED DEMENTIA WITH BEHAVIORAL DISTURBANCE Status: Acute Priority: High Current Visit: Yes - Problem List Review Problem List Initiated/Reviewed/Updated: Yes - My Orders Last 24 Hours: My Active Orders 03/10/20 20:00 Donepezil [Aricept] 5 mg PO BEDTIME Latanoprost [Xalatan 0.005% Ophth Soln] 0 ml EYEBOTH BEDTIME 03/11/20 07:46 Ready for Discharge [RC] PER UNIT ROUTINE 03/11/20 08:00 FLUoxetine [PROzac] 10 mg PO DAILY Non-Formulary Medication [NF Drug] 1 each PO DAILY - Assessment Assessment:: Behavioral Issues - Plan Plan:: If patient cannot be placed in an appropriate senior behavioral health facility by the end of his observation period, he will be discharged back to the care center.
--- NOTE | 2020-03-11 12:46 | PCM.PN ---
- General Info Date of Service: 03/11/20 Admission Dx/Problem (Free Text): Admission Diagnosis/Problem Admission Diagnosis/Problem Behavioral disorder This patient presents to the ED from the [facility] for behavioral issues. He was admitted to the [facility] approximately 1 week ago following an admission to [facility]. Since admission to the [facility] he has been refusing to eat, drink fluids, and take his medications. As a result, his behavioral outbursts have increased in frequency and he has become quite uncooperative with the nursing staff. I spoke with his psychiatrist by phone today who recommended a senior behavioral care placement; however, there are no available beds. Subjective Update: Unable to place patient in [facility] facility due to bed availability. Functional Status: Reports: Pain Controlled - Review of Systems General: Reports: No Symptoms HEENT: Reports: No Symptoms Pulmonary: Reports: No Symptoms Cardiovascular: Reports: No Symptoms Gastrointestinal: Reports: No Symptoms Genitourinary: Reports: No Symptoms Musculoskeletal: Reports: No Symptoms Skin: Reports: No Symptoms Neurological: Reports: No Symptoms Psychiatric: Reports: No Symptoms - Patient Data Vitals - Most Recent: Last Vital Signs Temp 36.6 C 03/10/20 20:00 Pulse 70 03/10/20 20:00 Resp 17 03/11/20 03:58 BP 128/74 03/10/20 20:00 Pulse Ox 97 03/10/20 20:00 Weight - Most Recent: 63.049 kg Med Orders - Current: Current Medications Bupropion HCl (Wellbutrin Xl) 300 mg PO DAILY [facility] Last Admin: 03/10/20 11:52 Dose: 300 mg Bupropion HCl (Wellbutrin Xl) 150 mg PO DAILY [facility] Last Admin: 03/10/20 11:53 Dose: 150 mg Diphenhydramine HCl (Benadryl) 50 mg IM ONETIME PRN PRN Reason: Agitation Donepezil HCl (Aricept) 5 mg PO BEDTIME [facility] Last Admin: 03/10/20 19:55 Dose: 5 mg Fluoxetine HCl (Prozac) 10 mg PO DAILY [facility] Haloperidol Lactate (Haldol) 5 mg IM ONETIME PRN PRN Reason: Agitation Latanoprost (Xalatan 0.005% Ophth Soln) 0 ml EYEBOTH BEDTIME [facility] Last Admin: 03/10/20 20:39 Dose: Not Given Lorazepam (Ativan) 2 mg IM ONETIME PRN PRN Reason: Agitation Non-Formulary Medication (Acetaminophen [Tylenol Extra Strength]) 500 mg PO Q6HR PRN PRN Reason: Pain Non-Formulary Medication (Aspirin [Halfprin]) 81 mg PO DAILY [facility] Last Admin: 03/10/20 11:51 Dose: 81 mg Non-Formulary Medication (Cholecalciferol (Vitamin D3) [Vitamin D3]) 1,000 unit PO DAILY [facility] Last Admin: 03/10/20 11:51 Dose: 1,000 unit Non-Formulary Medication (Glucosam/Chond/Collagen/Hyalur [Glucosamine Chondroitin]) 1 each PO DAILY [facility] Non-Formulary Medication (Lanolin/Mineral Oil [Eucerin Original Lotion]) 1 inch TOP BID PRN PRN Reason: Other Non-Formulary Medication (Levothyroxine Sodium [Levoxyl]) 88 mcg PO DAILY [facility] Last Admin: 03/10/20 11:51 Dose: 88 mcg Non-Formulary Medication (Loratadine [Loratadine]) 10 mg PO DAILY [facility] Last Admin: 03/10/20 11:51 Dose: 10 mg [place]-3 Fatty Acids 1,000 Mg Cap Own Med 1,000 mg PO DAILY [facility] Last Admin: 03/10/20 11:52 Dose: Not Given Non-Formulary Medication (Potassium Chloride [Klor-Con M20]) 20 meq PO DAILY [facility] Last Admin: 03/10/20 11:52 Dose: Not Given Non-Formulary Medication (Sumatriptan Succinate [Imitrex]) 100 mg PO ASDIRECTED PRN PRN Reason: Headache/Pain Aripiprazole ( Abilify) 20 Mg Tab * *Own Med 20 mg PO BEDTIME [facility] Last Admin: 03/10/20 19:59 Dose: 20 mg Lorazepam 0.5 Mg Tab (Own Med) 0.5 mg PO TID [facility] Last Admin: 03/11/20 08:16 Dose: 0.5 mg Pramipexole (Mirapex ) 0.5 Mg Tab Own Med 2.5 mg PO BEDTIME [facility] Last Admin: 03/10/20 19:58 Dose: 2.5 mg Fluoxetine 40mg (Capsule) 1 each PO DAILY [facility] Patient's Own Medication Olanzapine 7.5 Mg Tab 1 each PO BEDTIME [facility] Last Admin: 03/10/20 19:58 Dose: 1 each Senna/Docusate Sodium (Senna Plus) 2 tab PO BEDTIME [facility] Last Admin: 03/10/20 19:59 Dose: Not Given Simvastatin (Zocor) 20 mg PO BEDTIME [facility] Last Admin: 03/10/20 19:59 Dose: Not Given Topiramate (Topamax) 50 mg PO BID [facility] Last Admin: 03/11/20 08:16 Dose: 50 mg Trazodone HCl (Trazodone) 50 mg PO BEDTIME [facility] Last Admin: 03/10/20 19:58 Dose: 50 mg Discontinued Medications Diphenhydramine HCl (Benadryl) 50 mg IM ONETIME ONE Stop: 03/09/20 13:34 Last Admin: 03/09/20 13:35 Dose: 50 mg Diphenhydramine HCl (Benadryl) 50 mg IM ONETIME ONE Stop: 03/09/20 19:00 Donepezil HCl (Aricept) 5 mg PO ONETIME ONE Stop: 03/09/20 20:31 Last Admin: 03/09/20 20:50 Dose: 5 mg Donepezil HCl (Aricept) 5 mg PO BEDTIME [facility] Last Admin: 03/10/20 20:38 Dose: Not Given Haloperidol Lactate (Haldol) 5 mg IM ONETIME ONE Stop: 03/09/20 13:34 Last Admin: 03/09/20 13:35 Dose: 5 mg Haloperidol Lactate (Haldol) 5 mg IM ONETIME ONE Stop: 03/09/20 19:00 Lorazepam (Ativan) 2 mg IM ONETIME ONE Stop: 03/09/20 13:34 Last Admin: 03/09/20 13:35 Dose: 2 mg Lorazepam (Ativan) 2 mg IM ONETIME ONE Stop: 03/09/20 19:00 Aripiprazole ( Abilify) 20 Mg Tab * *Own Med 0 mg PO BEDTIME [facility] Last Admin: 03/09/20 20:50 Dose: 20 mg Non-Formulary Medication (Bupropion Hcl [Wellbutrin Sr]) 150 mg PO DAILY [facility] Non-Formulary Medication (Latanoprost [Xalatan 0.005% [facility] Soln]) 1 drop OP DAILY [facility] Last Admin: 03/10/20 19:05 Dose: Not Given Lorazepam 0.5 Mg Tab (Own Med) 0 mg PO TID [facility] Last Admin: 03/10/20 19:06 Dose: Not Given Non-Formulary Medication (Olanzapine [Olanzapine]) 7.5 mg PO DAILY [facility] Pramipexole (Mirapex ) 0.5 Mg Tab Own Med 0 mg PO BEDTIME [facility] Last Admin: 03/09/20 20:50 Dose: 2.5 mg Non-Formulary Medication (Trazodone Hcl [Trazodone Hcl]) 1 - 2 tab PO BEDTIME PRN PRN Reason: Insomnia Non-Formulary Medication (Latanoprost [Xalatan 0.005% Ophth Soln]) 1 drop OP BEDTIME [facility] Last Admin: 03/10/20 20:38 Dose: Not Given - Exam General: Alert, Oriented, Cooperative, No Acute Distress HEENT: Pupils Equal, Pupils Reactive, Mucous Membr. Moist/[place] Neck: Supple Lungs: Clear to Auscultation, Normal Respiratory Effort Skin: Warm, Dry, Intact Neurological: No New Focal Deficit Psy/Mental Status: Alert, Normal Affect, Normal Mood, Depressed. No: Agitated, Suicidal Ideation, Homicidal Ideation Sepsis Event Note - Evaluation Sepsis Screening Result: No Definite Risk - Focused Exam Vital Signs: Vital Signs Resp 03/11/20 03:58 17 Date Exam was Performed: 03/11/20 Time Exam was Performed: 12:42 - Problem List & Annotations (1) Behavioral and psychological symptoms of dementia SNOMED Code(s): 54225989182152 Code(s): F03.91 - UNSPECIFIED DEMENTIA WITH BEHAVIORAL DISTURBANCE Status: Acute Priority: High Current Visit: Yes - Problem List Review Problem List Initiated/Reviewed/Updated: Yes - My Orders Last 24 Hours: My Active Orders 03/10/20 20:00 Donepezil [Aricept] 5 mg PO BEDTIME Latanoprost [Xalatan 0.005% Ophth Soln] 0 ml EYEBOTH BEDTIME 03/11/20 07:46 Ready for Discharge [RC] PER UNIT ROUTINE 03/11/20 08:00 FLUoxetine [PROzac] 10 mg PO DAILY Non-Formulary Medication [NF Drug] 1 each PO DAILY - Assessment Assessment:: Behavioral Issues - Plan Plan:: 03/10/2020 If patient cannot be placed in an appropriate senior behavioral health facility by the end of his observation period, he will be discharged back to the care center. 03/11/2020 There are not beds available in senior behavioral care at [facility]. [facility] in [place] has refused the patient's admission. Contact made with DON to facilitate transfer of patient to the care center; admission refused. The patient does not meet criteria for hospital care on either acute or observation status.
[2020-03-11] MEDS: LEVOTHYROXINE SODIUM 88 MCG PO SCH (18:05)
[2020-03-11] MEDS: FLUOXETINE 40MG CAPSULE PO SCH (18:05)
[2020-03-11] MEDS: FLUoxetine 10 MG Cap PO SCH (18:05)
[2020-03-11] MEDS: buPROPion 150 MG Tab.ER PO SCH (18:06)
[2020-03-11] MEDS: Non-Formulary Medication 1 Each (Cholecalciferol (Vitamin D3) [Vitamin D3] 1,000 UNIT) PO SCH (18:06)
[2020-03-11] MEDS: Non-Formulary Medication 1 Each (Aspirin [Halfprin] 81 MG) PO SCH (18:06)
[2020-03-11] MEDS: buPROPion 300 MG Tab.ER PO SCH (18:06)
[2020-03-11] MEDS: Non-Formulary Medication 1 Each (Loratadine [Loratadine] 10 MG) PO SCH (18:07)
[2020-03-11] MEDS: OMEGA PO SCH (18:07)
[2020-03-11] MEDS: Non-Formulary Medication 1 Each (Potassium Chloride [Klor-Con M20] 20 MEQ) PO SCH (18:07)
[2020-03-11] MEDS: FATTY ACIDS PO SCH (18:07)
[2020-03-11] MEDS: OLANZAPINE 7.5 MG PO SCH (20:05)
[2020-03-11] MEDS: PRAMIPEXOLE 0.5 MG PO SCH (20:08)
[2020-03-11] MEDS: traZODone 50 MG Tab **OWN MED PO SCH (20:08)
[2020-03-11] MEDS: ARIPIPRAZOLE 20 MG PO SCH (20:09)
[2020-03-11] MEDS: DONEPEZIL 5 MG PO SCH (20:09)
[2020-03-11] MEDS: Simvastatin 20 MG Tab **OWN MED PO SCH (20:09)
[2020-03-12] MEDS: TOPIRAMATE 25 MG PO SCH ×2 (07:52→20:24)
[2020-03-12] MEDS: buPROPion 300 MG Tab.ER PO SCH (07:53)
[2020-03-12] MEDS: buPROPion 150 MG Tab.ER PO SCH (07:53)
--- NOTE | 2020-03-12 10:06 | PCM.PN ---
- General Info Date of Service: 03/12/20 Admission Dx/Problem (Free Text): Admission Diagnosis/Problem Admission Diagnosis/Problem Behavioral disorder This patient presents to the ED from the [facility] for behavioral issues. He was admitted to the [facility] approximately 1 week ago following an admission to [facility]. Since admission to the [facility] he has been refusing to eat, drink fluids, and take his medications. As a result, his behavioral outbursts have increased in frequency and he has become quite uncooperative with the nursing staff. I spoke with his psychiatrist by phone today who recommended a senior behavioral care placement; however, there are no available beds. Subjective Update: Patient has no complaints and is quite independent. Does take most medications as requested. No behavioral issues noted. - Review of Systems General: Reports: No Symptoms HEENT: Reports: No Symptoms Pulmonary: Reports: No Symptoms Cardiovascular: Reports: No Symptoms Gastrointestinal: Reports: No Symptoms Genitourinary: Reports: No Symptoms Musculoskeletal: Reports: No Symptoms Skin: Reports: No Symptoms Neurological: Reports: No Symptoms Psychiatric: Reports: No Symptoms - Patient Data Vitals - Most Recent: Last Vital Signs Temp 35.6 C L 03/12/20 08:00 Pulse 69 03/12/20 08:00 Resp 16 03/12/20 08:00 BP 127/74 03/12/20 08:00 Pulse Ox 97 03/10/20 20:00 Weight - Most Recent: 63.049 kg Med Orders - Current: Current Medications Bupropion HCl (Wellbutrin Xl) 300 mg PO DAILY [facility] Last Admin: 03/12/20 07:53 Dose: 300 mg Bupropion HCl (Wellbutrin Xl) 150 mg PO DAILY [facility] Last Admin: 03/12/20 07:53 Dose: 150 mg Diphenhydramine HCl (Benadryl) 50 mg IM ONETIME PRN PRN Reason: Agitation Donepezil HCl (Aricept) 5 mg PO BEDTIME [facility] Last Admin: 03/11/20 20:09 Dose: 5 mg Fluoxetine HCl (Prozac) 10 mg PO DAILY [facility] Last Admin: 03/11/20 18:05 Dose: Not Given Haloperidol Lactate (Haldol) 5 mg IM ONETIME PRN PRN Reason: Agitation Lorazepam (Ativan) 2 mg IM ONETIME PRN PRN Reason: Agitation Non-Formulary Medication (Acetaminophen [Tylenol Extra Strength]) 500 mg PO Q6HR PRN PRN Reason: Pain Non-Formulary Medication (Levothyroxine Sodium [Levoxyl]) 88 mcg PO DAILY [facility] Last Admin: 03/11/20 18:05 Dose: Not Given Aripiprazole ( Abilify) 20 Mg Tab * *Own Med 20 mg PO BEDTIME [facility] Last Admin: 03/11/20 20:09 Dose: 20 mg Lorazepam 0.5 Mg Tab (Own Med) 0.5 mg PO TID [facility] Last Admin: 03/12/20 07:51 Dose: 0.5 mg Pramipexole (Mirapex ) 0.5 Mg Tab Own Med 2.5 mg PO BEDTIME [facility] Last Admin: 03/11/20 20:08 Dose: 2.5 mg Fluoxetine 40mg (Capsule) 1 each PO DAILY [facility] Last Admin: 03/11/20 18:05 Dose: Not Given Patient's Own Medication Olanzapine 7.5 Mg Tab 1 each PO BEDTIME [facility] Last Admin: 03/11/20 20:05 Dose: 1 each Simvastatin (Zocor) 20 mg PO BEDTIME [facility] Last Admin: 03/11/20 20:09 Dose: 20 mg Topiramate (Topamax) 50 mg PO BID [facility] Last Admin: 03/12/20 07:52 Dose: 50 mg Trazodone HCl (Trazodone) 50 mg PO BEDTIME [facility] Last Admin: 03/11/20 20:08 Dose: 50 mg Discontinued Medications Diphenhydramine HCl (Benadryl) 50 mg IM ONETIME ONE Stop: 03/09/20 13:34 Last Admin: 03/09/20 13:35 Dose: 50 mg Diphenhydramine HCl (Benadryl) 50 mg IM ONETIME ONE Stop: 03/09/20 19:00 Donepezil HCl (Aricept) 5 mg PO ONETIME ONE Stop: 03/09/20 20:31 Last Admin: 03/09/20 20:50 Dose: 5 mg Donepezil HCl (Aricept) 5 mg PO BEDTIME [facility] Last Admin: 03/10/20 20:38 Dose: Not Given Haloperidol Lactate (Haldol) 5 mg IM ONETIME ONE Stop: 03/09/20 13:34 Last Admin: 03/09/20 13:35 Dose: 5 mg Haloperidol Lactate (Haldol) 5 mg IM ONETIME ONE Stop: 03/09/20 19:00 Latanoprost (Xalatan 0.005% Ophth Soln) 0 ml EYEBOTH BEDTIME [facility] Last Admin: 03/10/20 20:39 Dose: Not Given Lorazepam (Ativan) 2 mg IM ONETIME ONE Stop: 03/09/20 13:34 Last Admin: 03/09/20 13:35 Dose: 2 mg Lorazepam (Ativan) 2 mg IM ONETIME ONE Stop: 03/09/20 19:00 Aripiprazole ( Abilify) 20 Mg Tab * *Own Med 0 mg PO BEDTIME [facility] Last Admin: 03/09/20 20:50 Dose: 20 mg Non-Formulary Medication (Aspirin [Halfprin]) 81 mg PO DAILY [facility] Last Admin: 03/11/20 18:06 Dose: Not Given Non-Formulary Medication (Bupropion Hcl [Wellbutrin Sr]) 150 mg PO DAILY [facility] Non-Formulary Medication (Cholecalciferol (Vitamin D3) [Vitamin D3]) 1,000 unit PO DAILY [facility] Last Admin: 03/11/20 18:06 Dose: Not Given Non-Formulary Medication (Glucosam/Chond/Collagen/Hyalur [Glucosamine Chondroitin]) 1 each PO DAILY [facility] Last Admin: 03/11/20 18:07 Dose: Not Given Non-Formulary Medication (Lanolin/Mineral Oil [Eucerin Original Lotion]) 1 inch TOP BID PRN PRN Reason: Other Non-Formulary Medication (Latanoprost [Xalatan 0.005% Ophth Soln]) 1 drop OP DAILY [facility] Last Admin: 03/10/20 19:05 Dose: Not Given Non-Formulary Medication (Loratadine [Loratadine]) 10 mg PO DAILY [facility] Last Admin: 03/11/20 18:07 Dose: Not Given Lorazepam 0.5 Mg Tab (Own Med) 0 mg PO TID [facility] Last Admin: 03/10/20 19:06 Dose: Not Given Non-Formulary Medication (Olanzapine [Olanzapine]) 7.5 mg PO DAILY [facility] [place]-3 Fatty Acids 1,000 Mg Cap Own Med 1,000 mg PO DAILY [facility] Last Admin: 03/11/20 18:07 Dose: Not Given Non-Formulary Medication (Potassium Chloride [Klor-Con M20]) 20 meq PO DAILY [facility] Last Admin: 03/11/20 18:07 Dose: Not Given Pramipexole (Mirapex ) 0.5 Mg Tab Own Med 0 mg PO BEDTIME [facility] Last Admin: 03/09/20 20:50 Dose: 2.5 mg Non-Formulary Medication (Sumatriptan Succinate [Imitrex]) 100 mg PO ASDIRECTED PRN PRN Reason: Headache/Pain Non-Formulary Medication (Trazodone Hcl [Trazodone Hcl]) 1 - 2 tab PO BEDTIME PRN PRN Reason: Insomnia Non-Formulary Medication (Latanoprost [Xalatan 0.005% Ophth Soln]) 1 drop OP BEDTIME [facility] Last Admin: 03/10/20 20:38 Dose: Not Given Senna/Docusate Sodium (Senna Plus) 2 tab PO BEDTIME [facility] Last Admin: 03/10/20 19:59 Dose: Not Given - Exam General: Alert, Oriented HEENT: Pupils Equal, EOMI, Mucous Membr. Moist/[place] Neck: Supple Lungs: Clear to Auscultation, Normal Respiratory Effort Cardiovascular: Regular Rhythm Extremities: Normal Capillary Refill Skin: Warm, Dry, Intact Neurological: No New Focal Deficit Psy/Mental Status: Alert, Normal Affect, Normal Mood, Depressed Sepsis Event Note - Evaluation Sepsis Screening Result: No Definite Risk - Focused Exam Vital Signs: Vital Signs Temp Temp Pulse Resp BP BP 03/12/20 08:00 35.6 C L 69 16 127/74 03/12/20 05:00 36.6 C 77 03/12/20 04:00 36.9 C 70 16 145/70 H 03/12/20 00:00 36.6 C 66 16 136/74 Date Exam was Performed: 03/12/20 Time Exam was Performed: 10:06 - Problem List & Annotations (1) Behavioral and psychological symptoms of dementia SNOMED Code(s): 38141088054847 Code(s): F03.91 - UNSPECIFIED DEMENTIA WITH BEHAVIORAL DISTURBANCE Status: Acute Priority: High Current Visit: Yes - Problem List Review Problem List Initiated/Reviewed/Updated: Yes - My Orders Last 24 Hours: My Active Orders 03/11/20 13:06 Vital Signs [RC] Q8H - Assessment Assessment:: 03/11/2020 Behavioral Issues 03/12/2020 Behavioral Issues under control - Plan Plan:: 03/10/2020 If patient cannot be placed in an appropriate senior behavioral health facility by the end of his observation period, he will be discharged back to the care center. 03/11/2020 There are not beds available in senior [facility] care at [place] or [place]. [facility] in [place] has refused the patient's admission. Contact made with [facility] to facilitate transfer of patient to the care center; admission refused. The patient does not meet criteria for hospital care on either acute or observation status. 03/12/2020 Patient continues here without medical need. Continue to look for appropriate placement.
[2020-03-12] MEDS: LEVOTHYROXINE SODIUM 88 MCG PO SCH (14:32)
[2020-03-12] MEDS: FLUOXETINE 40MG CAPSULE PO SCH (14:32)
[2020-03-12] MEDS: FLUoxetine 10 MG Cap PO SCH (14:32)
[2020-03-12] MEDS: DONEPEZIL 5 MG PO SCH (20:22)
[2020-03-12] MEDS: Simvastatin 20 MG Tab **OWN MED PO SCH (20:23)
[2020-03-12] MEDS: ARIPIPRAZOLE 20 MG PO SCH (20:23)
[2020-03-12] MEDS: traZODone 50 MG Tab **OWN MED PO SCH (20:29)
[2020-03-12] MEDS: OLANZAPINE 7.5 MG PO SCH (20:30)
[2020-03-12] MEDS: PRAMIPEXOLE 0.5 MG PO SCH (20:31)
[2020-03-13] MEDS: LEVOTHYROXINE SODIUM 88 MCG PO SCH (08:45)
[2020-03-13] MEDS: FLUOXETINE 40MG CAPSULE PO SCH (08:45)
[2020-03-13] MEDS: TOPIRAMATE 25 MG PO SCH ×2 (08:46→20:36)
[2020-03-13] MEDS: buPROPion 300 MG Tab.ER PO SCH (08:46)
[2020-03-13] MEDS: FLUoxetine 10 MG Cap PO SCH (08:46)
[2020-03-13] MEDS: buPROPion 150 MG Tab.ER PO SCH (08:46)
[2020-03-13] MEDS: Simvastatin 20 MG Tab **OWN MED PO SCH (20:32)
[2020-03-13] MEDS: ARIPIPRAZOLE 20 MG PO SCH (20:33)
[2020-03-13] MEDS: DONEPEZIL 5 MG PO SCH (20:34)
[2020-03-13] MEDS: traZODone 50 MG Tab **OWN MED PO SCH (20:35)
[2020-03-13] MEDS: OLANZAPINE 7.5 MG PO SCH (20:35)
[2020-03-13] MEDS: PRAMIPEXOLE 0.5 MG PO SCH (20:36)
[2020-03-14] MEDS: LEVOTHYROXINE SODIUM 88 MCG PO SCH (08:30)
[2020-03-14] MEDS: FLUoxetine 10 MG Cap PO SCH (08:31)
[2020-03-14] MEDS: buPROPion 150 MG Tab.ER PO SCH (08:31)
[2020-03-14] MEDS: TOPIRAMATE 25 MG PO SCH ×2 (08:31→20:30)
[2020-03-14] MEDS: FLUOXETINE 40MG CAPSULE PO SCH (08:31)
[2020-03-14] MEDS: buPROPion 300 MG Tab.ER PO SCH (08:31)
[2020-03-14] MEDS: OLANZAPINE 7.5 MG PO SCH (20:32)
[2020-03-14] MEDS: PRAMIPEXOLE 0.5 MG PO SCH (20:32)
[2020-03-14] MEDS: ARIPIPRAZOLE 20 MG PO SCH (20:33)
[2020-03-14] MEDS: traZODone 50 MG Tab **OWN MED PO SCH (20:33)
[2020-03-14] MEDS: DONEPEZIL 5 MG PO SCH (20:33)
[2020-03-14] MEDS: Simvastatin 20 MG Tab **OWN MED PO SCH (20:34)
[2020-03-15] MEDS: LEVOTHYROXINE SODIUM 88 MCG PO SCH (07:00)
[2020-03-15] MEDS: FLUoxetine 10 MG Cap PO SCH (07:01)
[2020-03-15] MEDS: FLUOXETINE 40MG CAPSULE PO SCH (07:01)
[2020-03-15] MEDS: buPROPion 300 MG Tab.ER PO SCH (07:02)
[2020-03-15] MEDS: buPROPion 150 MG Tab.ER PO SCH (07:02)
[2020-03-15] MEDS: TOPIRAMATE 25 MG PO SCH ×2 (07:03→20:56)
[2020-03-15] MEDS: Simvastatin 20 MG Tab **OWN MED PO SCH (20:57)
[2020-03-15] MEDS: ARIPIPRAZOLE 20 MG PO SCH (20:57)
[2020-03-15] MEDS: traZODone 50 MG Tab **OWN MED PO SCH (20:58)
[2020-03-15] MEDS: DONEPEZIL 5 MG PO SCH (20:58)
[2020-03-15] MEDS: OLANZAPINE 7.5 MG PO SCH (20:59)
[2020-03-15] MEDS: PRAMIPEXOLE 0.5 MG PO SCH (20:59)
[2020-03-16 07:42] VITALS: BP 84/45; PULSE 65
[2020-03-16] MEDS: buPROPion 150 MG Tab.ER PO SCH (08:28)
[2020-03-16] MEDS: TOPIRAMATE 25 MG PO SCH (08:28)
[2020-03-16] MEDS: buPROPion 300 MG Tab.ER PO SCH (08:28)
[2020-03-16] MEDS: FLUOXETINE 40MG CAPSULE PO SCH (08:29)
[2020-03-16] MEDS: LEVOTHYROXINE SODIUM 88 MCG PO SCH (08:29)
[2020-03-16] MEDS: FLUoxetine 10 MG Cap PO SCH (08:29)
--- NOTE | 2020-03-16 11:25 | PCM.DCSUM1 ---
Discharge Summary - Hospital Course Free Text/Narrative:: No reports of behavioral outbursts or other troublesome behaviors. Cooperative with nursing regarding cares-did shower, shave, and change clothes as requested. Will take medications when requested with non-confrontive, relaxed approach by nursing. Diagnosis: Stroke: No - Discharge Data Discharge Date: 03/16/20 Discharge Disposition: DC/Tfer to SNF 03 Condition: Good - Referral to Home Health Primary Care Physician: PCP None - Discharge Diagnosis/Problem(s) (1) Behavioral and psychological symptoms of dementia SNOMED Code(s): 95493619211475 ICD Code: F03.91 - UNSPECIFIED DEMENTIA WITH BEHAVIORAL DISTURBANCE Status : Acute Priority: High Current Visit: Yes - Discharge Plan *PRESCRIPTION DRUG MONITORING PROGRAM REVIEWED*: Not Applicable Home Medications: Home Meds Aspirin [Halfprin] 81 mg PO DAILY 11/03/14 [History] Cinacalcet [Sensipar] 30 mg PO DAILY 11/03/14 [History] Glucosam/Chond/Collagen/Hyalur [Glucosamine Chondroitin] 1 each PO DAILY [History] Latanoprost [Xalatan] 1 drop OP DAILY 11/03/14 [History] Levothyroxine Sodium [Levoxyl] 88 mcg PO DAILY 11/03/14 [History] [place]-3 Fatty Acids [Reese-3] 1,000 mg PO BID 11/03/14 [History] Sennosides/Docusate Sodium [Senna-Docusate Sodium] 2 tab PO BEDTIME 11/03/14 [ History] Simvastatin [Zocor] 20 mg PO BEDTIME 11/03/14 [History] buPROPion HCL [Wellbutrin SR] 150 mg PO DAILY 11/03/14 [History] Potassium Chloride [Klor-Con M20] 20 meq PO DAILY 09/03/15 [History] lamoTRIgine [LaMICtal] 175 mg PO BID 09/03/15 [History] Cholecalciferol (Vitamin D3) [Vitamin D3] 1,000 unit PO DAILY 02/11/17 [History] ARIPiprazole [Abilify] 20 mg PO BEDTIME 07/28/19 [History] Acetaminophen [Tylenol Extra Strength] 500 mg PO Q6HR PRN 07/28/19 [History] FLUoxetine HCl [Prozac] 10 mg PO DAILY 07/28/19 [History] Lanolin/Mineral Oil [Eucerin Original Lotion] 1 inch TOP BID PRN 07/28/19 [ History] Pramipexole Di-HCl [Mirapex] 2.5 mg PO BEDTIME 07/28/19 [History] SUMAtriptan succinate [Imitrex] 100 mg PO ASDIRECTED PRN MDD 200 mg 07/28/19 [ History] Topiramate [Topamax] 50 mg PO BID 07/28/19 [History] Triamcinolone Acetonide [Triamcinolone Acetonide 0.5%] 0.5 percent TOP BID PRN 07/28/19 [History] LORazepam [Lorazepam] 0.5 mg PO TID 01/20/20 [History] Loratadine 10 mg PO DAILY 01/20/20 [History] OLANZapine [Olanzapine] 7.5 mg PO DAILY 01/20/20 [History] traZODone HCl [Trazodone HCl] 1 - 2 tab PO BEDTIME PRN 01/20/20 [History] Forms: ED Department Discharge Referrals: PCP,None [Primary Care Provider] - - Discharge Summary/Plan Comment DC Time >30 min.: Yes - Patient Data Vitals - Most Recent: Last Vital Signs Temp 36.0 C L 03/16/20 07:41 Pulse 65 03/16/20 07:41 Resp 16 03/16/20 07:41 BP 84/45 L 03/16/20 07:41 Pulse Ox 100 03/16/20 07:41 Weight - Most Recent: 63.049 kg Med Orders - Current: Current Medications Bupropion HCl (Wellbutrin Xl) 300 mg PO DAILY [facility] Last Admin: 03/16/20 08:28 Dose: 300 mg Bupropion HCl (Wellbutrin Xl) 150 mg PO DAILY [facility] Last Admin: 03/16/20 08:28 Dose: 150 mg Diphenhydramine HCl (Benadryl) 50 mg IM ONETIME PRN PRN Reason: Agitation Donepezil HCl (Aricept) 5 mg PO BEDTIME [facility] Last Admin: 03/15/20 20:58 Dose: 5 mg Fluoxetine HCl (Prozac) 10 mg PO DAILY [facility] Last Admin: 03/16/20 08:29 Dose: 10 mg Haloperidol Lactate (Haldol) 5 mg IM ONETIME PRN PRN Reason: Agitation Lorazepam (Ativan) 2 mg IM ONETIME PRN PRN Reason: Agitation Non-Formulary Medication (Acetaminophen [Tylenol Extra Strength]) 500 mg PO Q6HR PRN PRN Reason: Pain Non-Formulary Medication (Levothyroxine Sodium [Levoxyl]) 88 mcg PO DAILY [facility] Last Admin: 03/16/20 08:29 Dose: 88 mcg Aripiprazole ( Abilify) 20 Mg Tab * *Own Med 20 mg PO BEDTIME [facility] Last Admin: 03/15/20 20:57 Dose: 20 mg Lorazepam 0.5 Mg Tab (Own Med) 0.5 mg PO TID [facility] Last Admin: 03/16/20 08:28 Dose: 0.5 mg Pramipexole (Mirapex ) 0.5 Mg Tab Own Med 2.5 mg PO BEDTIME [facility] Last Admin: 03/15/20 20:59 Dose: 2.5 mg Fluoxetine 40mg (Capsule) 1 each PO DAILY [facility] Last Admin: 03/16/20 08:29 Dose: 1 each Patient's Own Medication Olanzapine 7.5 Mg Tab 1 each PO BEDTIME [facility] Last Admin: 03/15/20 20:59 Dose: 1 each Simvastatin (Zocor) 20 mg PO BEDTIME [facility] Last Admin: 03/15/20 20:57 Dose: 20 mg Topiramate (Topamax) 50 mg PO BID [facility] Last Admin: 03/16/20 08:28 Dose: 50 mg Trazodone HCl (Trazodone) 50 mg PO BEDTIME [facility] Last Admin: 03/15/20 20:58 Dose: 50 mg Discontinued Medications Diphenhydramine HCl (Benadryl) 50 mg IM ONETIME ONE Stop: 03/09/20 13:34 Last Admin: 03/09/20 13:35 Dose: 50 mg Diphenhydramine HCl (Benadryl) 50 mg IM ONETIME ONE Stop: 03/09/20 19:00 Donepezil HCl (Aricept) 5 mg PO ONETIME ONE Stop: 03/09/20 20:31 Last Admin: 03/09/20 20:50 Dose: 5 mg Donepezil HCl (Aricept) 5 mg PO BEDTIME [facility] Last Admin: 03/10/20 20:38 Dose: Not Given Haloperidol Lactate (Haldol) 5 mg IM ONETIME ONE Stop: 03/09/20 13:34 Last Admin: 03/09/20 13:35 Dose: 5 mg Haloperidol Lactate (Haldol) 5 mg IM ONETIME ONE Stop: 03/09/20 19:00 Latanoprost (Xalatan 0.005% Ophth Soln) 0 ml EYEBOTH BEDTIME [facility] Last Admin: 03/10/20 20:39 Dose: Not Given Lorazepam (Ativan) 2 mg IM ONETIME ONE Stop: 03/09/20 13:34 Last Admin: 03/09/20 13:35 Dose: 2 mg Lorazepam (Ativan) 2 mg IM ONETIME ONE Stop: 03/09/20 19:00 Aripiprazole ( Abilify) 20 Mg Tab * *Own Med 0 mg PO BEDTIME [facility] Last Admin: 03/09/20 20:50 Dose: 20 mg Non-Formulary Medication (Aspirin [Halfprin]) 81 mg PO DAILY [facility] Last Admin: 03/11/20 18:06 Dose: Not Given Non-Formulary Medication (Bupropion Hcl [Wellbutrin Sr]) 150 mg PO DAILY [facility] Non-Formulary Medication (Cholecalciferol (Vitamin D3) [Vitamin D3]) 1,000 unit PO DAILY [facility] Last Admin: 03/11/20 18:06 Dose: Not Given Non-Formulary Medication (Glucosam/Chond/Collagen/Hyalur [Glucosamine Chondroitin]) 1 each PO DAILY [facility] Last Admin: 03/12/20 18:34 Dose: Not Given Non-Formulary Medication (Lanolin/Mineral Oil [Eucerin Original Lotion]) 1 inch TOP BID PRN PRN Reason: Other Non-Formulary Medication (Latanoprost [Xalatan 0.005% Ophth Soln]) 1 drop OP DAILY [facility] Last Admin: 03/10/20 19:05 Dose: Not Given Non-Formulary Medication (Loratadine [Loratadine]) 10 mg PO DAILY [facility] Last Admin: 03/11/20 18:07 Dose: Not Given Lorazepam 0.5 Mg Tab (Own Med) 0 mg PO TID [facility] Last Admin: 03/10/20 19:06 Dose: Not Given Non-Formulary Medication (Olanzapine [Olanzapine]) 7.5 mg PO DAILY [facility] Reese-3 Fatty Acids 1,000 Mg Cap Own Med 1,000 mg PO DAILY [facility] Last Admin: 03/11/20 18:07 Dose: Not Given Non-Formulary Medication (Potassium Chloride [Klor-Con M20]) 20 meq PO DAILY [facility] Last Admin: 03/11/20 18:07 Dose: Not Given Pramipexole (Mirapex ) 0.5 Mg Tab Own Med 0 mg PO BEDTIME [facility] Last Admin: 03/09/20 20:50 Dose: 2.5 mg Non-Formulary Medication (Sumatriptan Succinate [Imitrex]) 100 mg PO ASDIRECTED PRN PRN Reason: Headache/Pain Non-Formulary Medication (Trazodone Hcl [Trazodone Hcl]) 1 - 2 tab PO BEDTIME PRN PRN Reason: Insomnia Non-Formulary Medication (Latanoprost [Xalatan 0.005% Ophth Soln]) 1 drop OP BEDTIME [facility] Last Admin: 03/10/20 20:38 Dose: Not Given Senna/Docusate Sodium (Senna Plus) 2 tab PO BEDTIME [facility] Last Admin: 03/10/20 19:59 Dose: Not Given - Exam General: Reports: Alert, Oriented, Cooperative HEENT: Reports: Pupils Equal, Pupils Reactive, EOMI, Mucous Membr. Moist/[place] Neck: Reports: Supple Lungs: Reports: Clear to Auscultation, Normal Respiratory Effort Cardiovascular: Reports: Regular Rate, Regular Rhythm GI/Abdominal Exam: Normal Bowel Sounds, Soft, Non-Tender, No Organomegaly Extremities: Normal Inspection, Normal Range of Motion, Normal Capillary Refill Skin: Reports: Warm, Dry, Intact Neurological: Reports: No New Focal Deficit Psy/Mental Status: Reports: Alert, Normal Affect, Normal Mood
== END 2020-03-16 13:00 ==
LOC: LB.ED 13:00 → UNDOADMOB 18:00 → LB.MS 18:00
PROVIDERS: ADMIT Nurse Practitioner; ATTEND Nurse Practitioner
DX: R45.1 Restlessness and agitation (principal); F25.0 Schizoaffective disorder, bipolar type; F32.9 Major depressive disorder, single episode, unspecified; E11.22 Type 2 diabetes mellitus with diabetic chronic kidney disease; N18.9 Chronic kidney disease, unspecified; Z79.82 Long term (current) use of aspirin; Z79.899 Other long term (current) drug therapy
CPT/HCPCS: 36415; 80048; 81001; 84443; 85025; 96372; 99217; 99218; 99224; 99285; A9270-GY; G0378; J1200; J1630; J2060

== ENCOUNTER 2020-05-17 08:38 | Observation (INO) | payer MEDICARE ==
--- NOTE | 2020-05-17 09:07 | EDM.PDOC ---
ED HPI GENERAL MEDICAL PROBLEM - General Chief Complaint: General Stated Complaint: SUICIDAL Time Seen by Provider: 05/17/20 08:54 Source of Information: Reports: Patient, Prison Records, RN, RN Notes Reviewed History Limitations: Reports: No Limitations - History of Present Illness INITIAL COMMENTS - FREE TEXT/NARRATIVE: [place] repots that the patient placed a belt around his neck this AM and threatened to harm himself. The patient actively denies this assertion and states that hie is not currently having suicidal thoughts. The patient reports that he is concerned about worsening incontinence, but denies other symtpoms. Patient has a long psychiatric history with a recent change in some of his medications. Onset: Other (Patient states for 2 days. Records indicate ongoing/) Duration: Chronic Location: Reports: Pelvis Quality: Reports: Other (Patient denies pain) - Related Data Allergies Allergy/AdvReac Type Severity Reaction Status Date / Time No Known Allergies Allergy Verified 05/17/20 08:50 Home Meds: Home Meds Aspirin [Halfprin] 81 mg PO DAILY 11/03/14 [History] Cinacalcet [Sensipar] 30 mg PO DAILY 11/03/14 [History] Glucosam/Chond/Collagen/Hyalur [Glucosamine Chondroitin] 1 each PO DAILY 11/03/14 [History] Latanoprost [Xalatan] 1 drop OP DAILY 11/03/14 [History] Levothyroxine Sodium [Levoxyl] 88 mcg PO DAILY 11/03/14 [History] [place]-3 Fatty Acids [[place]-3] 1,000 mg PO BID 11/03/14 [History] Sennosides/Docusate Sodium [Senna-Docusate Sodium] 2 tab PO BEDTIME 11/03/14 [History] Simvastatin [Zocor] 20 mg PO BEDTIME 11/03/14 [History] buPROPion HCL [Wellbutrin SR] 150 mg PO DAILY 11/03/14 [History] Potassium Chloride [Klor-Con M20] 20 meq PO DAILY 09/03/15 [History] Cholecalciferol (Vitamin D3) [Vitamin D3] 1,000 unit PO DAILY 02/11/17 [History] ARIPiprazole [Abilify] 20 mg PO BEDTIME 07/28/19 [History] Acetaminophen [Tylenol Extra Strength] 500 mg PO Q6HR PRN 07/28/19 [History] FLUoxetine HCl [Prozac] 60 mg PO DAILY 07/28/19 [History] Lanolin/Mineral Oil [Eucerin Original Lotion] 1 inch TOP BID PRN 07/28/19 [History] Pramipexole Di-HCl [Mirapex] 2.5 mg PO BEDTIME 07/28/19 [History] SUMAtriptan succinate [Imitrex] 100 mg PO ASDIRECTED PRN MDD 200 mg 07/28/19 [H istory] Topiramate [Topamax] 50 mg PO BID 07/28/19 [History] LORazepam [Lorazepam] 0.5 mg PO TID 01/20/20 [History] Loratadine 10 mg PO DAILY 01/20/20 [History] OLANZapine [Olanzapine] 7.5 mg PO DAILY 01/20/20 [History] traZODone HCl [Trazodone HCl] 1 - 2 tab PO BEDTIME PRN 01/20/20 [History] Tamsulosin HCl [Flomax] 0.4 mg PO DAILY 05/17/20 [History] Past Medical History HEENT History: Reports: Cataract Other HEENT History: had cataract surgery, wears glasses Cardiovascular History: Reports: Other (See Below) Other Cardiovascular History: States was told some enzyme was elevated in [place] and now takes aspirin Genitourinary History: Reports: Renal Disease Musculoskeletal History: Reports: Arthritis, Back Pain, Chronic Neurological History: Reports: Migraines Psychiatric History: Reports: Bipolar, Depression, Schizophrenia Other Psychiatric History: Has had ECT x 2, Dx Schizo Affective Depression Endocrine/Metabolic History: Reports: Hypothyroidism, IDDM Other Endocrine/Metabolic History: Diabetes insipidus - Past Surgical History HEENT Surgical History: Reports: Cataract Surgery GI Surgical History: Reports: Hernia Repair/Other Male Surgical History: Reports: Other (See Below) Other Male Surgeries/Procedures: Hx CKD in 2018 GFR low at that time Musculoskeletal Surgical History: Reports: Carpal Tunnel, Knee Replacement Social & Family History - Family History Family Medical History: Noncontributory - Caffeine Use Caffeine Use: Reports: Coffee Caffeine Use Comment: 2 cups daily ED ROS GENERAL - Review of Systems Review Of Systems: See Below Constitutional: Denies: Fever, Chills, Night Sweats, Diaphoresis HEENT: Reports: No Symptoms. Denies: Rhinitis, Throat Pain Respiratory: Reports: No Symptoms Cardiovascular: Reports: No Symptoms Endocrine: Reports: Polyuria GI/Abdominal: Reports: No Symptoms : Reports: Frequency, Incontinence. Denies: Discharge, Dysuria, Flank Pain, Hematuria, Pain, Urgency, Urinary Retention Musculoskeletal: Reports: No Symptoms. Denies: Back Pain Skin: Reports: No Symptoms Neurological: Denies: Dizziness, Headache, Numbness, Paresthesia, Pre-Existing Deficit, Seizure, Syncope, Tingling, Tremors, Trouble Speaking, Difficulty Walking, Weakness, Change in Speech, Gait Disturbance Psychiatric: Reports: Depression, Other (Patient continues to deny suicidal ideation). Denies: Agitation, Anxiety, Confusion, Hallucinations, Homicidal Ideation ED EXAM, GENERAL - Physical Exam Exam: See Below Exam Limited By: No Limitations General Appearance: Alert, WD/WN, No Apparent Distress, Thin. No: Anxious, Le thargic, Obtunded Ears: Normal External Exam, Normal Canal, Normal TMs Ear Exam: Bilateral Ear: TM normal Throat/Mouth: Normal Inspection, Normal Lips, Normal Gums, Normal Oropharynx, Normal Voice, No Airway Compromise. No: Dysphagia, Inflammation Head: Atraumatic, Normocephalic Neck: Normal Inspection, Supple, Non-Tender, Full Range of Motion. No: Carotid Bruit, Limited Range of Motion, Lymphadenopathy (R) Respiratory/Chest: No Respiratory Distress, Lungs Clear, Normal Breath Sounds, No Accessory Muscle Use, Chest Non-Tender. No: Respiratory Distress, Decreased Breath Sounds, Crackles, Rales, Rhonchi, Wheezing, Stridor, Pleural Rub, Acces indra Muscle Use, Prolonged Expiration Cardiovascular: Normal Peripheral Pulses, Regular Rate, Rhythm, No Edema, No Gallop, No JVD, No Murmur, No Rub. No: JVD Peripheral Pulses: 4+: Radial (L), Radial (R), Posterior Tibial (L), Posterior Tibial (R) GI/Abdominal: Normal Bowel Sounds, Soft, Non-Tender, No Organomegaly, No Dis tention, No Abnormal Bruit, No Mass, Pelvis Stable (Male) Exam: No Hernia, Normal Inspection, Circumcised. No: Hernia, Inguinal Lymphadenopathy, Penile Lesions, Rash, Scrotal Swelling, Scrotum Tenderness (L), Scrotum Tenderness (R), Suprapubic Fullness, Testicular Mass, Testicular Tenderness (L), Testicular Tenderness (R), Urethral Discharge Back Exam: No: CVA Tenderness (R), CVA Tenderness (L) Extremities: Normal Inspection, Normal Range of Motion, Non-Tender, No Pedal Edema, Normal Capillary Refill Neurological: Alert, Oriented, CN II-XII Intact, Normal Gait, No Motor/Sensory Deficits. No: Inattentive, Confused, Disoriented, Slow to Respond, Unresponsive, Abnormal Gait, Sensory/Motor Deficit Psychiatric: Flat Affect Skin Exam: Warm, Dry, Intact, Normal Color, No Rash Lymphatic: No Adenopathy Course - Vital Signs Last Recorded V/S: Last Vital Signs Temp 97.3 F 05/17/20 08:43 Pulse 74 05/17/20 08:43 Resp 18 05/17/20 08:43 BP 109/79 05/17/20 08:43 Pulse Ox 98 05/17/20 08:43 - Orders/Labs/Meds Labs: Laboratory Tests 05/17/20 05/17/20 05/17/20 Range/Units 09:05 09:10 09:10 WBC 4.1 D (4.0-11.0) K/uL RBC 4.16 L (4.50-6.50) M/uL Hgb 12.7 L (13.0-18.0) g/dL Hct 39.8 L (40.0-54.0) % MCV 96 (76-96) fL MCH 30.5 (27.0-32.0) pg MCHC 31.9 (31.0-35.0) g/dL RDW 13.4 (11.0-16.0) % Plt Count 126 L D (150-400) K/uL MPV 10.9 H (6.0-10.0) fL Neut % (Auto) 74.3 H (45.0-70.0) % Lymph % (Auto) 14.5 L (20.0-40.0) % [place] % (Auto) 8.0 (3.0-10.0) % Eos % (Auto) 2.7 (1.0-5.0) % Baso % (Auto) 0.5 (0.0-0.5) % Neut # (Auto) 3.08 (2.00-7.50) K/uL Lymph # (Auto) 0.60 L (1.50-4.00) K/uL Mckean # (Auto) 0.33 (0.20-0.80) K/uL Eos # (Auto) 0.11 (0.04-0.40) K/uL Baso # (Auto) 0.02 (0.02-0.10) K/uL Sodium 147 H (136-145) mmol/L Potassium 4.0 (3.5-5.1) mmol/L Chloride 113 H (98-107) mmol/L Carbon Dioxide 25.0 (21.0-32.0) mmol/L Anion Gap 13.0 (5.0-15.0) mmol/L BUN 29 H (8-26) mg/dL Creatinine 2.51 H (0.70-1.30) mg/dL Est Cr Clr Drug Dosing TNP Estimated GFR (MDRD) 26 L (>60) MLS/MIN BUN/Creatinine Ratio 11.6 (6-25) Glucose 124 H (74-100) mg/dL Calcium 9.7 (8.5-10.1) mg/dL Total Bilirubin 0.5 D (0.0-1.0) mg/dL AST 61 H (15-37) U/L ALT 55 (12-78) U/L Alkaline Phosphatase 55 (46-116) U/L Total Protein 7.0 (6.4-8.2) g/dL Albumin 3.7 (3.4-5.0) g/dL Globulin 3.3 (2.2-4.2) g/dL Albumin/Globulin Ratio 1.1 (0.8-2.0) Urine Color Yellow Urine Appearance Clear (CLEAR) Urine pH 7.0 (5.0-8.0) Ur Specific [place] 1.015 (1.003-1.030) Urine Protein 30 H (NEGATIVE) mg/dL Urine Glucose (UA) Negative (NEGATIVE) mg/dL Urine Ketones Negative (NEGATIVE) mg/dL Urine Occult Blood Negative (NEGATIVE) Urine Nitrite Negative (NEGATIVE) Urine Bilirubin Negative (NEGATIVE) Urine Urobilinogen 0.2 (0.2-1.0) E.U./dL Ur Leukocyte Esterase Negative (NEGATIVE) U Hyaline Cast (Auto) Rare /HPF Urine RBC Not Reportable Urine WBC Not Reportable Urine Bacteria Rare /HPF - Re-Assessments/Exams Free Text/Narrative Re-Assessment/Exam: 05/17/20 09:45 Patient is resting comfortably without acute complaints. Patient denies suicidal ideation. Free Text/Narrative Re-Assessment/Exam: 05/17/20 10:01 Patient continues to deny complaints. Patient denies suicidal ideation. Departure - Departure Time of Disposition: 10:05 Disposition: DC/Tfer to [facility] Clinical Impression: Incontinence of urine, Depression, Chronic anemia, Chronic renal disease, stage 4, severely decreased glomerular filtration rate (GFR) between 15-29 mL/min/1.73 square meter - Discharge Information *PRESCRIPTION DRUG MONITORING PROGRAM REVIEWED*: No *COPY OF PRESCRIPTION DRUG MONITORING REPORT IN PATIENT KAREN: No Referrals: PCP,None [Primary Care Provider] - Sepsis Event Note (ED) - Evaluation Sepsis Screening Result: No Definite Risk - Focused Exam Vital Signs: Vital Signs Temp Pulse Resp BP Pulse Ox 05/17/20 08:43 97.3 F 74 18 109/79 98 - Problem List & Annotations (1) Mental health problem SNOMED Code(s): 117080745 Code(s): F48.9 - NONPSYCHOTIC MENTAL DISORDER, UNSPECIFIED Status: Acute Current Visit: No (2) Schizophrenia SNOMED Code(s): 39862521 Code(s): F20.9 - SCHIZOPHRENIA, UNSPECIFIED Status: Acute Current Visit: No Qualifiers: Schizophrenia type: unspecified Qualified Code(s): F20.9 - Schizophrenia, unspecified (3) Behavioral and psychological symptoms of dementia SNOMED Code(s): 66147417004443 Code(s): F03.91 - UNSPECIFIED DEMENTIA WITH BEHAVIORAL DISTURBANCE Status: Acute Priority: High Current Visit: No - Problem List Review Problem List Initiated/Reviewed/Updated: Yes - Assessment/Plan Plan: Patient has a lengthy psychiatric history and is well known by the nursing staff. The patient is currently an inpatient in a local longterm with 24 hour care. The patient repeatedly denied suicidal ideation and/or gesture. Patie nt's incontinence is also an ongoing issue. Differential Diagnosis: UTI Delirium Depression Bacteremia Amongst Many others PLAN: (1) Exclude organic causes such as acute delirium secondary to infection such as UTI or bacteremia. (2) Review recently changed medications as cause of worsening symptoms (3) Obtain CBC, CMP, and UA (4) Evaluate renal function and electrolytes for acute alteration as the patient has CRF Patient's laboratory studies do not demonstrate any acute worrisome findings. There is no evidence of acute infection or electrolyte imbalance. The patient continually denied suicidal ideation. The patient's incontinence is ongoing and he has recently seen the telemedicine urologist. The patient is stable for transfer back to the longterm and continue with his current treatment plan.
[2020-05-17] MEDS ORDERED: Topiramate 25 MG Tab PO SCH (20:00)
[2020-05-17] MEDS: PRAMIPEXOLE 1 MG PO SCH (20:30)
[2020-05-17] MEDS: OLANZAPINE 7.5 MG PO SCH (20:30)
[2020-05-17] MEDS: LORazepam 0.5 MG Tab **OWN MED PO SCH (20:30)
[2020-05-17] MEDS: Donepezil 10 MG Tab **OWN MED PO SCH (20:30)
[2020-05-17] MEDS: Docusate Sodium/Sennosides 50-8.6 MG Tab **OWN MED PO SCH (20:30)
[2020-05-17] MEDS: Simvastatin 20 MG Tab **OWN MED PO SCH (20:30)
[2020-05-17] MEDS: Latanoprost 0.005% Ophth Soln 2.5 ML Bottle **OWN MED EYEBOTH SCH (20:30)
[2020-05-17] MEDS: TOPIRAMATE 50 MG PO SCH (20:30)
[2020-05-17] MEDS: traZODone 50 MG Tab **OWN MED PO SCH (20:30)
[2020-05-17] MEDS ORDERED: Sodium Chloride 0.9% 1,000 ML IV SCH (22:00)
--- NOTE | 2020-05-18 07:37 | PCM.HP.2 ---
H&P History of Present Illness - General Date of Service: 05/17/20 Admit Problem/Dx: Admission Diagnosis/Problem Admission Diagnosis/Problem Suicidal behavior Source of Information: Patient, Long Term Records, RN Notes Reviewed History Limitations: Reports: Other (mild dementia) - History of Present Illness Initial Comments - Free Text/Narative: Patient was seen and evaluated by me in the ED for potential suicidal gesture while at the long-term where the patient reportedly placed a leather belt around his neck while at the breakfast table. The patient has a long psychiatric history [facility] could not provide adequate 1 to 1 care for the patient and maintain his safety. The patient was placed in OBS pending psychiatric evaluation and potential additional placement. The patient repeatedly denied any suicidal ideations currently. Organic causes of acute delirium were excluded in the ED. Onset of Symptoms: Reports: Today Symptom Onset Date: 05/17/20 Symptom Onset Time: 09:00 Duration of Symptoms: Reports: Resolved Prior to Arrival - Related Data Allergies/Adverse Reactions: Allergies Allergy/AdvReac Type Severity Reaction Status Date / Time No Known Allergies Allergy Verified 05/17/20 08:50 Home Medications: Home Meds Aspirin [Halfprin] 81 mg PO DAILY 11/03/14 [History] Cinacalcet [Sensipar] 30 mg PO DAILY 11/03/14 [History] Glucosam/Chond/Collagen/Hyalur [Glucosamine Chondroitin] 1 each PO DAILY 11/03/14 [History] Latanoprost [Xalatan] 1 drop OP DAILY 11/03/14 [History] Levothyroxine Sodium [Levoxyl] 88 mcg PO DAILY 11/03/14 [History] Powderhorn-3 Fatty Acids [Powderhorn-3] 1,000 mg PO BID 11/03/14 [History] Sennosides/Docusate Sodium [Senna-Docusate Sodium] 2 tab PO BEDTIME 11/03/14 [History] Simvastatin [Zocor] 20 mg PO BEDTIME 11/03/14 [History] buPROPion HCL [Wellbutrin SR] 150 mg PO DAILY 11/03/14 [History] Potassium Chloride [Klor-Con M20] 20 meq PO DAILY 09/03/15 [History] Cholecalciferol (Vitamin D3) [Vitamin D3] 1,000 unit PO DAILY 02/11/17 [History] ARIPiprazole [Abilify] 20 mg PO BEDTIME 07/28/19 [History] Acetaminophen [Tylenol Extra Strength] 500 mg PO Q6HR PRN 07/28/19 [History] FLUoxetine HCl [Prozac] 60 mg PO DAILY 07/28/19 [History] Lanolin/Mineral Oil [Eucerin Original Lotion] 1 inch TOP BID PRN 07/28/19 [Hist ory] Pramipexole Di-HCl [Mirapex] 2.5 mg PO BEDTIME 07/28/19 [History] SUMAtriptan succinate [Imitrex] 100 mg PO ASDIRECTED PRN MDD 200 mg 07/28/19 [History] Topiramate [Topamax] 50 mg PO BID 07/28/19 [History] LORazepam [Lorazepam] 0.5 mg PO TID 01/20/20 [History] Loratadine 10 mg PO DAILY 01/20/20 [History] OLANZapine [Olanzapine] 7.5 mg PO DAILY 01/20/20 [History] traZODone HCl [Trazodone HCl] 1 - 2 tab PO BEDTIME PRN 01/20/20 [History] Donepezil [Aricept] 10 mg PO DAILY 05/17/20 [History] Tamsulosin HCl [Flomax] 0.4 mg PO DAILY 05/17/20 [History] Past Medical History HEENT History: Reports: Cataract Other HEENT History: had cataract surgery, wears glasses Cardiovascular History: Reports: Other (See Below) Other Cardiovascular History: States was told some enzyme was elevated in [place] and now takes aspirin Genitourinary History: Reports: Renal Disease Other Genitourinary History: Very concerned regarding increased incontinence Musculoskeletal History: Reports: Arthritis, Back Pain, Chronic Neurological History: Reports: Migraines Psychiatric History: Reports: Bipolar, Depression, Schizophrenia Other Psychiatric History: Has had ECT x 2, Dx Schizo Affective Depression Endocrine/Metabolic History: Reports: Hypothyroidism, IDDM Other Endocrine/Metabolic History: Diabetes insipidus - Past Surgical History HEENT Surgical History: Reports: Cataract Surgery GI Surgical History: Reports: Hernia Repair/Other Male Surgical History: Reports: Other (See Below) Other Male Surgeries/Procedures: Hx CKD in 2018 GFR low at that time Musculoskeletal Surgical History: Reports: Carpal Tunnel, Knee Replacement Social & Family History - Family History Family Medical History: Noncontributory - Tobacco Use Smoking Status *Q: Never Smoker Second Hand Smoke Exposure: No - Caffeine Use Caffeine Use: Reports: None Caffeine Use Comment: 2 cups daily - Recreational Drug Use Recreational Drug Use: No H&P Review of Systems - Review of Systems: Review Of Systems: See Below General: Reports: No Symptoms HEENT: Reports: No Symptoms Pulmonary: Reports: No Symptoms Cardiovascular: Reports: No Symptoms Gastrointestinal: Reports: No Symptoms Genitourinary: Reports: No Symptoms Musculoskeletal: Reports: No Symptoms Skin: Reports: No Symptoms Psychiatric: Reports: No Symptoms Neurological: Reports: No Symptoms Hematologic/Lymphatic: Reports: No Symptoms Immunologic: Reports: No Symptoms Exam - Exam Exam: See Below - Vital Signs Vital Signs: Last Vital Signs Temp 98.0 F 05/17/20 21:00 Pulse 64 05/17/20 21:00 Resp 16 05/17/20 21:00 BP 128/80 05/17/20 21:00 Pulse Ox 99 05/17/20 21:00 Weight: 138 lb 12.8 oz - Patient Data Lab Results Last 24 hrs: Laboratory Results - last 24 hr 05/17/20 05/17/20 05/17/20 Range/Units 09:05 09:10 09:10 WBC 4.1 D (4.0-11.0) K/uL RBC 4.16 L (4.50-6.50) M/uL Hgb 12.7 L (13.0-18.0) g/dL Hct 39.8 L (40.0-54.0) % MCV 96 (76-96) fL MCH 30.5 (27.0-32.0) pg MCHC 31.9 (31.0-35.0) g/dL RDW 13.4 (11.0-16.0) % Plt Count 126 L D (150-400) K/uL MPV 10.9 H (6.0-10.0) fL Neut % (Auto) 74.3 H (45.0-70.0) % Lymph % (Auto) 14.5 L (20.0-40.0) % [place] % (Auto) 8.0 (3.0-10.0) % Eos % (Auto) 2.7 (1.0-5.0) % Baso % (Auto) 0.5 (0.0-0.5) % Neut # (Auto) 3.08 (2.00-7.50) K/uL Lymph # (Auto) 0.60 L (1.50-4.00) K/uL [place] # (Auto) 0.33 (0.20-0.80) K/uL Eos # (Auto) 0.11 (0.04-0.40) K/uL Baso # (Auto) 0.02 (0.02-0.10) K/uL Sodium 147 H (136-145) mmol/L Potassium 4.0 (3.5-5.1) mmol/L Chloride 113 H (98-107) mmol/L Carbon Dioxide 25.0 (21.0-32.0) mmol/L Anion Gap 13.0 (5.0-15.0) mmol/L BUN 29 H (8-26) mg/dL Creatinine 2.51 H (0.70-1.30) mg/dL Est Cr Clr Drug Dosing TNP Estimated GFR (MDRD) 26 L (>60) MLS/MIN BUN/Creatinine Ratio 11.6 (6-25) Glucose 124 H (74-100) mg/dL Calcium 9.7 (8.5-10.1) mg/dL Total Bilirubin 0.5 D (0.0-1.0) mg/dL AST 61 H (15-37) U/L ALT 55 (12-78) U/L Alkaline Phosphatase 55 (46-116) U/L Total Protein 7.0 (6.4-8.2) g/dL Albumin 3.7 (3.4-5.0) g/dL Globulin 3.3 (2.2-4.2) g/dL Albumin/Globulin Ratio 1.1 (0.8-2.0) Urine Color Yellow Urine Appearance Clear (CLEAR) Urine pH 7.0 (5.0-8.0) Ur Specific [place] 1.015 (1.003-1.030) Urine Protein 30 H (NEGATIVE) mg/dL Urine Glucose (UA) Negative (NEGATIVE) mg/dL Urine Ketones Negative (NEGATIVE) mg/dL Urine Occult Blood Negative (NEGATIVE) Urine Nitrite Negative (NEGATIVE) Urine Bilirubin Negative (NEGATIVE) Urine Urobilinogen 0.2 (0.2-1.0) E.U./dL Ur Leukocyte Esterase Negative (NEGATIVE) U Hyaline Cast (Auto) Rare /HPF Urine RBC Not Reportable Urine WBC Not Reportable Urine Bacteria Rare /HPF Result Diagrams: 05/17/20 09:10 05/17/20 09:05 Sepsis Event Note - Evaluation Sepsis Screening Result: No Definite Risk - Focused Exam Vital Signs: Vital Signs Temp Pulse Resp BP Pulse Ox 05/17/20 21:00 98.0 F 64 16 128/80 99 Date Exam was Performed: 05/18/20 Time Exam was Performed: 08:17 *Q Meaningful Use (ADM) - VTE *Q VTE Mechanical Contraindications *Q: Tx/Proc Refused byPt VTE Pharmacological Contraindications *Q: Not Candidate LT Anticoag VTE Anticoagulation Contraindications: Med/TX Not Indicated/Need - VTE Risk Assess *Q Each Risk Factor Represents 1 Point: None Total Score 1 Point Risk Factors: 0 Each Risk Factor Represents 2 Points: Age 60 - 74 Years Total Score 2 Point Risk Factors: 2 Each Risk Factor Represents 3 Points: None Total Score 3 Point Risk Factors: 0 Each Risk Factor Represents 5 Points: None Total Score 5 Point Risk Factors: 0 Venous Thromboembolism Risk Factor Score *Q: 2 - Stroke *Q Anticoagulation Contraindications Stroke *Q: Med/TX Not Indicated/Need Antithrombotic Contraindications Stroke *Q: Med/TX Not Indicated/Need Thrombolytic/Fibrinolytic Contraindications Stroke *Q: Med/TX Not Indicated/Need Statin Contraindications Stroke *Q: Med/TX Not Indicated/Need Rehabilitation Assessment Contraindication *Q: Med/tx not indicated/need - AMI *Q Aspirin Contraindications AMI *Q: Med/TX Not Indicated/Need Thrombolytic/Fibrinolytic Contraindications IV (AMI) *Q: Med/tx not indicated/need Statin Contraindications AMI *Q: Med/TX Not Indicated/Need - Tobacco (TOB) Core Measure 1:1 Practical Counseling Performed: N/A - Problem List (1) Mental health problem SNOMED Code(s): 880040325 ICD Code: F48.9 - NONPSYCHOTIC MENTAL DISORDER, UNSPECIFIED Status: Acute Current Visit: No (2) Schizophrenia SNOMED Code(s): 57122551 ICD Code: F20.9 - SCHIZOPHRENIA, UNSPECIFIED Status: Acute Current Visit: Yes Qualifiers: Schizophrenia type: unspecified Qualified Code(s): F20.9 - Schizophrenia, unspecified (3) Behavioral and psychological symptoms of dementia SNOMED Code(s): 05360138776586 ICD Code: F03.91 - UNSPECIFIED DEMENTIA WITH BEHAVIORAL DISTURBANCE Status: Acute Priority: High Current Visit: No Problem List Initiated/Reviewed/Updated: Yes Orders Last 24hrs: Active Orders 24 hr Category Date Time Status Patient Status [ADT] Routine ADT 05/17/20 11:34 Active Ambulate [RC] PER UNIT ROUTINE Care 05/17/20 11:33 Active Suicide Precautions [RC] ASDIRECTED Care 05/17/20 11:45 Active Vital Signs [RC] Q4H Care 05/17/20 11:34 Active Regular Diet [DIET] Diet 05/17/20 Lunch Ordered Docusate Sodium/Sennosides [Senna Plus] Med 05/17/20 20:00 Active 2 tab PO BEDTIME Donepezil [Aricept] Med 05/17/20 20:00 Active 10 mg PO BEDTIME FLUoxetine [PROzac] Med 05/18/20 08:00 Active 20 mg PO DAILY LORazepam [Ativan] Med 05/17/20 20:00 Active 0.5 mg PO TID Latanoprost [Xalatan 0.005% Ophth Soln] Med 05/17/20 20:00 Active 0 ml EYEBOTH BEDTIME Levothyroxine [Synthroid] Med 05/18/20 07:00 Active 88 mcg PO ACBREAKFAST Non-Formulary Medication [NF Drug] Med 05/18/20 08:00 Active 0 each PO DAILY Patient's Own Medication [Ptom] Med 05/17/20 20:00 Active 0 each PO BEDTIME Patient's Own Medication [Ptom] Med 05/17/20 20:00 Active 0 each PO BEDTIME Patient's Own Medication [Ptom] Med 05/17/20 20:00 Active 0 each PO BID Patient's Own Medication [Ptom] Med 05/18/20 08:00 Active 0 each PO DAILY Simvastatin [Zocor] Med 05/17/20 20:00 Active 20 mg PO BEDTIME Tamsulosin [Flomax] Med 05/18/20 10:00 Active 0.4 mg PO PCBREAKFAST buPROPion [Wellbutrin XL] Med 05/18/20 08:00 Active 150 mg PO DAILY buPROPion [Wellbutrin XL] Med 05/18/20 08:00 Active 300 mg PO DAILY traZODone Med 05/17/20 20:00 Active 50 mg PO BEDTIME Medication Orders Bupropion HCl (Wellbutrin Xl) 150 mg PO DAILY DANETTE Bupropion HCl (Wellbutrin Xl) 300 mg PO DAILY DANETTE Donepezil HCl (Aricept) 10 mg PO BEDTIME DANETTE Last Admin: 05/17/20 20:30 Dose: 10 mg Documented by: CHADD Fluoxetine HCl (Prozac) 20 mg PO DAILY DANETTE Latanoprost (Xalatan 0.005% Oph Soln) 0 ml EYEBOTH BEDTIME DANETTE Last Admin: 05/17/20 20:30 Dose: 1 drop Documented by: CHADD Levothyroxine Sodium (Synthroid) 88 mcg PO ACBREAKFAST DANETTE Lorazepam (Ativan) 0.5 mg PO TID DANETTE Last Admin: 05/17/20 20:30 Dose: 0.5 mg Documented by: CHADD Fluoxetine 40 Mg (Caps Own Med) 0 each PO DAILY DANETTE Aripiprazole 20 Mg (Tab Own Med) 0 each PO DAILY DANETTE Olanzapine 7.5 Mg (Tab Own Med) 0 each PO BEDTIME DANETTE Last Admin: 05/17/20 20:30 Dose: 7.5 each Documented by: CHADD Pramipexole 1 Mg Tab (Own Med) 0 each PO BEDTIME DANETTE Last Admin: 05/17/20 20:30 Dose: 2.5 each Documented by: CHADD Topiramate 50 Mg Tab (Own Med) 0 each PO BID DANETTE Last Admin: 05/17/20 20:30 Dose: 50 each Documented by: CHADD Senna/Docusate Sodium (Senna Plus) 2 tab PO BEDTIME DANETTE Last Admin: 05/17/20 20:30 Dose: 2 tab Documented by: CHADD Simvastatin (Zocor) 20 mg PO BEDTIME DANETTE Last Admin: 05/17/20 20:30 Dose: 20 mg Documented by: CHADD Tamsulosin HCl (Flomax) 0.4 mg PO PCBREAKFAST DANETTE Trazodone HCl (Trazodone) 50 mg PO BEDTIME DANETTE Last Admin: 05/17/20 20:30 Dose: 50 mg Documented by: CHADD Assessment/Plan Comment:: PLAN: Continue meds as previously Placement in OBS pending classification case manager evaluation and potential additional placement - Mortality Measure Prognosis:: Good
[2020-05-18] MEDS: FLUOXETINE 40 MG PO SCH ×3 (08:00→14:01)
[2020-05-18] MEDS: Levothyroxine 88 MCG Tab **OWN MED PO SCH (08:13)
[2020-05-18] MEDS: LORazepam 0.5 MG Tab **OWN MED PO SCH ×3 (08:15→20:34)
[2020-05-18] MEDS: TOPIRAMATE 50 MG PO SCH ×2 (08:17→20:35)
[2020-05-18] MEDS: ARIPIPRAZOLE 20 MG PO SCH (08:17)
[2020-05-18] MEDS: FLUOXETINE 10 MG PO SCH ×3 (08:17→14:11)
[2020-05-18] MEDS: BUPROPION 150 MG PO SCH (08:18)
[2020-05-18] MEDS: BUPROPION 300 MG PO SCH (08:19)
[2020-05-18] MEDS: Tamsulosin 0.4 MG Cap.ER **OWN MED PO SCH ×2 (12:21→14:04)
--- NOTE | 2020-05-18 13:24 | PCM.PN ---
- General Info Date of Service: 05/18/20 Functional Status: Reports: Pain Controlled - Review of Systems General: Reports: No Symptoms HEENT: Reports: No Symptoms Pulmonary: Reports: No Symptoms Cardiovascular: Reports: No Symptoms Gastrointestinal: Reports: No Symptoms Genitourinary: Reports: No Symptoms Musculoskeletal: Reports: No Symptoms Skin: Reports: No Symptoms Neurological: Reports: No Symptoms Psychiatric: Reports: Confusion (chronic). Denies: Anxiety, Agitation, Hallucinations, Suicidal Ideation, Homicidal Ideation - Patient Data Vitals - Most Recent: Last Vital Signs Temp 97.9 F 05/18/20 08:53 Pulse 65 05/18/20 08:53 Resp 16 05/18/20 08:53 BP 129/63 05/18/20 08:53 Pulse Ox 100 05/18/20 08:53 Weight - Most Recent: 138 lb 12.8 oz Lab Results Last 24 Hours: Laboratory Results - last 24 hr 05/18/20 Range/Units 10:50 COVID-19 (NETO) Negative Med Orders - Current: Current Medications Bupropion HCl (Wellbutrin Xl) 150 mg PO DAILY [facility] Last Admin: 05/18/20 08:18 Dose: 150 mg Documented by: Bupropion HCl (Wellbutrin Xl) 300 mg PO DAILY [facility] Last Admin: 05/18/20 08:19 Dose: 300 mg Documented by: Donepezil HCl (Aricept) 10 mg PO BEDTIME [facility] Last Admin: 05/17/20 20:30 Dose: 10 mg Documented by: Fluoxetine HCl (Prozac) 20 mg PO DAILY [facility] Last Admin: 05/18/20 08:17 Dose: 20 mg Documented by: Latanoprost (Xalatan 0.005% [facility]) 0 ml EYEBOTH BEDTIME [facility] Last Admin: 05/17/20 20:30 Dose: 1 drop Documented by: Levothyroxine Sodium (Synthroid) 88 mcg PO ACBREAKFAST [facility] Last Admin: 05/18/20 08:13 Dose: 88 mcg Documented by: Lorazepam (Ativan) 0.5 mg PO TID [facility] Last Admin: 05/18/20 08:15 Dose: 0.5 mg Documented by: Fluoxetine 40 Mg (Caps Own Med) 0 each PO DAILY [facility] Last Admin: 05/18/20 08:14 Dose: 40 each Documented by: Aripiprazole 20 Mg (Tab Own Med) 0 each PO DAILY [facility] Last Admin: 05/18/20 08:17 Dose: 20 each Documented by: Olanzapine 7.5 Mg (Tab Own Med) 0 each PO BEDTIME [facility] Last Admin: 05/17/20 20:30 Dose: 7.5 each Documented by: Pramipexole 1 Mg Tab (Own Med) 0 each PO BEDTIME DANETTE Last Admin: 05/17/20 20:30 Dose: 2.5 each Documented by: Topiramate 50 Mg Tab (Own Med) 0 each PO BID [facility] Last Admin: 05/18/20 08:17 Dose: 50 each Documented by: Senna/Docusate Sodium (Senna Plus) 2 tab PO BEDTIME [facility] Last Admin: 05/17/20 20:30 Dose: 2 tab Documented by: Simvastatin (Zocor) 20 mg PO BEDTIME [facility] Last Admin: 05/17/20 20:30 Dose: 20 mg Documented by: Tamsulosin HCl (Flomax) 0.4 mg PO PCBREAKFAST [facility] Last Admin: 05/18/20 12:21 Dose: Not Given Documented by: Trazodone HCl (Trazodone) 50 mg PO BEDTIME [facility] Last Admin: 05/17/20 20:30 Dose: 50 mg Documented by: Discontinued Medications Topiramate (Topamax) 25 mg PO BID [facility] - Exam Quality Assessment: No: Supplemental Oxygen General: Alert, Cooperative, No Acute Distress HEENT: Pupils Equal, Pupils Reactive, EOMI, Mucous Membr. Moist/[place] Neck: Supple Lungs: Clear to Auscultation, Normal Respiratory Effort Cardiovascular: Regular Rate, Regular Rhythm GI/Abdominal Exam: Normal Bowel Sounds, Soft, Non-Tender, No Organomegaly, No Distention, No Abnormal Bruit, No Mass, Pelvis Stable Extremities: Normal Inspection, Normal Range of Motion, Non-Tender, No Pedal Edema, Normal Capillary Refill Skin: Warm, Dry, Intact Neurological: No New Focal Deficit Psy/Mental Status: Alert. No: Suicidal Ideation, Homicidal Ideation, Hallucinations Sepsis Event Note - Evaluation Sepsis Screening Result: No Definite Risk Current Stage of Sepsis: Ruled Out Reason for Ruling Out Sepsis: NO SIRS CRITERIA - Focused Exam Vital Signs: Vital Signs Temp Pulse Resp BP Pulse Ox 05/18/20 08:53 97.9 F 65 16 129/63 100 Date Exam was Performed: 05/18/20 Time Exam was Performed: 13:19 - Problem List & Annotations (1) Mental health problem SNOMED Code(s): 645368130 Code(s): F48.9 - NONPSYCHOTIC MENTAL DISORDER, UNSPECIFIED Status: Acute Current Visit: No (2) Schizophrenia SNOMED Code(s): 33663033 Code(s): F20.9 - SCHIZOPHRENIA, UNSPECIFIED Status: Chronic Current Visit: Yes Qualifiers: Schizophrenia type: unspecified Qualified Code(s): F20.9 - Schizophrenia, unspecified (3) Behavioral and psychological symptoms of dementia SNOMED Code(s): 15686323652911 Code(s): F03.91 - UNSPECIFIED DEMENTIA WITH BEHAVIORAL DISTURBANCE Status: Chronic Priority: High Current Visit: No - Problem List Review Problem List Initiated/Reviewed/Updated: Yes - My Orders Last 24 Hours: My Active Orders 05/17/20 20:00 Docusate Sodium/Sennosides [Senna Plus] 2 tab PO BEDTIME Donepezil [Aricept] 10 mg PO BEDTIME LORazepam [Ativan] 0.5 mg PO TID Latanoprost [Xalatan 0.005% Ophth Soln] 0 ml EYEBOTH BEDTIME Patient's Own Medication [Ptom] 0 each PO BEDTIME Patient's Own Medication [Ptom] 0 each PO BEDTIME Patient's Own Medication [Ptom] 0 each PO BID Simvastatin [Zocor] 20 mg PO BEDTIME traZODone 50 mg PO BEDTIME 05/18/20 07:00 Levothyroxine [Synthroid] 88 mcg PO ACBREAKFAST 05/18/20 08:00 FLUoxetine [PROzac] 20 mg PO DAILY Non-Formulary Medication [NF Drug] 0 each PO DAILY Patient's Own Medication [Ptom] 0 each PO DAILY buPROPion [Wellbutrin XL] 150 mg PO DAILY buPROPion [Wellbutrin XL] 300 mg PO DAILY 05/18/20 10:00 Tamsulosin [Flomax] 0.4 mg PO PCBREAKFAST - Plan Plan:: PLAN: Continue meds as previously Placement in OBS pending behavioral health case manager evaluation and potential additional placement PROGRESS NOTE AND ONGOING PLAN: The patient continues to be pleasantly confused and denies suicidal ideation. The patient is frequently seen ambulating without difficulty at the nurses station asking "When am I going back to the care center?" The patient is easily redirect and is no aggressive. Social work and case management continues to search for placement at another site with [facility] capacities.
[2020-05-18] MEDS: Donepezil 10 MG Tab **OWN MED PO SCH (20:34)
[2020-05-18] MEDS: OLANZAPINE 7.5 MG PO SCH (20:34)
[2020-05-18] MEDS: Latanoprost 0.005% Ophth Soln 2.5 ML Bottle **OWN MED EYEBOTH SCH (20:35)
[2020-05-18] MEDS: Docusate Sodium/Sennosides 50-8.6 MG Tab **OWN MED PO SCH (20:35)
[2020-05-18] MEDS: traZODone 50 MG Tab **OWN MED PO SCH (20:35)
[2020-05-18] MEDS: PRAMIPEXOLE 1 MG PO SCH (20:35)
[2020-05-18] MEDS: Simvastatin 20 MG Tab **OWN MED PO SCH (20:36)
[2020-05-19] MEDS: Levothyroxine 88 MCG Tab **OWN MED PO SCH (07:15)
[2020-05-19] MEDS: LORazepam 0.5 MG Tab **OWN MED PO SCH ×2 (08:05→15:11)
[2020-05-19] MEDS: FLUOXETINE 40 MG PO SCH (08:06)
[2020-05-19] MEDS: ARIPIPRAZOLE 20 MG PO SCH (08:06)
[2020-05-19] MEDS: TOPIRAMATE 50 MG PO SCH (08:06)
[2020-05-19] MEDS: BUPROPION 300 MG PO SCH (08:06)
[2020-05-19] MEDS: BUPROPION 150 MG PO SCH (08:06)
[2020-05-19] MEDS: FLUOXETINE 10 MG PO SCH (08:06)
[2020-05-19] MEDS: Tamsulosin 0.4 MG Cap.ER **OWN MED PO SCH (10:02)
[2020-05-19 13:44] VITALS: BP 128/76; PULSE 72
--- NOTE | 2020-05-20 07:54 | PCM.PN ---
- General Info Date of Service: 05/20/20 Admission Dx/Problem (Free Text): Admission Diagnosis/Problem Admission Diagnosis/Problem Suicidal behavior Functional Status: Reports: Pain Controlled - Review of Systems General: Reports: No Symptoms HEENT: Reports: No Symptoms Pulmonary: Reports: No Symptoms Cardiovascular: Reports: No Symptoms Gastrointestinal: Reports: No Symptoms Genitourinary: Reports: No Symptoms Musculoskeletal: Reports: No Symptoms Skin: Reports: No Symptoms Neurological: Reports: No Symptoms Psychiatric: Denies: Hallucinations, Suicidal Ideation - Patient Data Vitals - Most Recent: Last Vital Signs Temp 97.8 F 05/19/20 13:00 Pulse 72 05/19/20 13:00 Resp 16 05/19/20 13:00 BP 128/76 05/19/20 13:00 Pulse Ox 97 05/19/20 13:00 Weight - Most Recent: 158 lb Med Orders - Current: Current Medications Discontinued Medications Bupropion HCl (Wellbutrin Xl) 150 mg PO DAILY [facility] Last Admin: 05/19/20 08:06 Dose: 150 mg Documented by: Bupropion HCl (Wellbutrin Xl) 300 mg PO DAILY [facility] Last Admin: 05/19/20 08:06 Dose: 300 mg Documented by: Donepezil HCl (Aricept) 10 mg PO BEDTIME [facility] Last Admin: 05/18/20 20:34 Dose: 10 mg Documented by: Fluoxetine HCl (Prozac) 20 mg PO DAILY [facility] Last Admin: 05/19/20 08:06 Dose: 20 mg Documented by: Latanoprost (Xalatan 0.005% Ophth Soln) 0 ml EYEBOTH BEDTIME [facility] Last Admin: 05/18/20 20:35 Dose: 1 drop Documented by: Levothyroxine Sodium (Synthroid) 88 mcg PO ACBREAKFAST [facility] Last Admin: 05/19/20 07:15 Dose: 88 mcg Documented by: Lorazepam (Ativan) 0.5 mg PO TID [facility] Last Admin: 05/19/20 15:11 Dose: 0.5 mg Documented by: Fluoxetine 40 Mg (Caps Own Med) 0 each PO DAILY [facility] Last Admin: 05/19/20 08:06 Dose: 40 each Documented by: Bupropion 300mg Er (Tablets) 1 each PO DAILY [facility] Aripiprazole 20 Mg (Tab Own Med) 0 each PO DAILY [facility] Last Admin: 05/19/20 08:06 Dose: 20 each Documented by: Olanzapine 7.5 Mg (Tab Own Med) 0 each PO BEDTIME [facility] Last Admin: 05/18/20 20:34 Dose: 7.5 each Documented by: Pramipexole 1 Mg Tab (Own Med) 0 each PO BEDTIME [facility] Last Admin: 05/18/20 20:35 Dose: 1 each Documented by: Topiramate 50 Mg Tab (Own Med) 0 each PO BID [facility] Last Admin: 05/19/20 08:06 Dose: 50 each Documented by: Senna/Docusate Sodium (Senna Plus) 2 tab PO BEDTIME [facility] Last Admin: 05/18/20 20:35 Dose: 2 tab Documented by: Simvastatin (Zocor) 20 mg PO BEDTIME [facility] Last Admin: 05/18/20 20:36 Dose: 20 mg Documented by: Tamsulosin HCl (Flomax) 0.4 mg PO PCBREAKFAST [facility] Last Admin: 05/19/20 10:02 Dose: 0.4 mg Documented by: Topiramate (Topamax) 25 mg PO BID [facility] Trazodone HCl (Trazodone) 50 mg PO BEDTIME [facility] Last Admin: 05/18/20 20:35 Dose: 50 mg Documented by: Sepsis Event Note - Evaluation Sepsis Screening Result: No Definite Risk - Focused Exam Date Exam was Performed: 05/20/20 Time Exam was Performed: 07:49 - Problem List & Annotations (1) Mental health problem SNOMED Code(s): 057000706 Code(s): F48.9 - NONPSYCHOTIC MENTAL DISORDER, UNSPECIFIED Status: Acute (2) Schizophrenia SNOMED Code(s): 55725375 Code(s): F20.9 - SCHIZOPHRENIA, UNSPECIFIED Status: Chronic Qualifiers: Schizophrenia type: unspecified Qualified Code(s): F20.9 - Schizophrenia, unspecified (3) Behavioral and psychological symptoms of dementia SNOMED Code(s): 79230969152521 Code(s): F03.91 - UNSPECIFIED DEMENTIA WITH BEHAVIORAL DISTURBANCE Status: Chronic Priority: High - Problem List Review Problem List Initiated/Reviewed/Updated: Yes - Plan Plan:: PLAN: Continue meds as previously Hospitalization pending keycase assembler evaluation and potential additional placement PROGRESS NOTE AND ONGOING PLAN: (05/18/2020) The patient continues to be pleasantly confused and denies suicidal ideation. The patient is frequently seen ambulating without difficulty at the nurses station asking "When am I going back to the care center?" The patient is easily redirected and is not aggressive. Social work and case management continues to search for placement at another site with [facility] capacities. PROGRESS NOTE AND ONGOING PLAN (05/20/2020): The patient continues to be pleasantly confused and denies suicidal ideation. The patient has had no incidents since his admission. He is eating and drinking well. He was evaluated by his primary psychiatrist yesterday who recommends placement at a different terminal supervisor care facility than he originated from. Case management is actively searching for a facility to accept the patient.
[2020-05-20] MEDS ORDERED: BUPROPION 300 MG PO SCH (08:00)
== END 2020-05-19 13:30 | disposition other institution (70) ==
LOC: LB.ED 08:38 → LB.MS 11:16 → UNDOADMOB 11:16 → LB.MS 11:33
PROVIDERS: ADMIT Nurse Practitioner Family; ATTEND Nurse Practitioner Family
DX: F48.9 Nonpsychotic mental disorder, unspecified (principal); F20.9 Schizophrenia, unspecified; F03.91 Unspecified dementia, unspecified severity, with behavioral disturbance; F31.9 Bipolar disorder, unspecified; E03.9 Hypothyroidism, unspecified; D63.1 Anemia in chronic kidney disease; R32 Unspecified urinary incontinence; E11.22 Type 2 diabetes mellitus with diabetic chronic kidney disease; N18.4 Chronic kidney disease, stage 4 (severe); Z20.828 Contact with and (suspected) exposure to other viral communicable diseases; Z79.890 Hormone replacement therapy; Z79.84 Long term (current) use of oral hypoglycemic drugs; Z79.899 Other long term (current) drug therapy; Z79.82 Long term (current) use of aspirin
CPT/HCPCS: 36415; 80053; 81001; 85025; 99284; A9270-GY; G0378; U0002

== ENCOUNTER 2020-05-19 12:59 | Inpatient (IN) | payer MEDICARE, OTHER ==
[2020-05-19] MEDS ORDERED: MINERAL OIL TOP PRN (13:06)
[2020-05-19] MEDS ORDERED: SUMATRIPTAN SUCCINATE 100 MG PO PRN (13:06)
[2020-05-19] MEDS ORDERED: LANOLIN TOP PRN (13:06)
[2020-05-19] MEDS ORDERED: ACETAMINOPHEN 500 MG PO PRN (13:06)
[2020-05-19] MEDS ORDERED: SENNA 8.6MG TABLET PO PRN (14:13)
[2020-05-19] MEDS: Non-Formulary Medication 1 Each (Lorazepam [Lorazepam] 0.5 MG) PO SCH ×2 (15:12→19:21)
--- NOTE | 2020-05-19 16:28 | PN ---
DATE OF VISIT: 05/19/2020 A 65-year-old male who was been an inpatient since some potential thoughts of suicidal ideation, even possibly thought to be a suicidal attempt. The patient was found with a belt around his neck at the Care Center. He denies any thoughts of suicide. The patient has been doing well as an inpatient. He has not been problematic and further evaluation is pending. It has been established that he will have a behavior health consult today at 4:[address] Foss who is his primary behavior health provider. Hopefully after this we can get an opinion based on this if the patient needs any further evaluation or treatment or we can return back to the Care Center. Nursing staff has no concerns regarding the patient today. When I talked with him, he was pleasant. He denies any thoughts of harming himself or suicide. He seems a little uncertain with some of his answers and some of his thoughts seem to trail off, but he is very pleasant and polite. Vital signs are good and physical exam today was deferred. GALILEA/PATTIE /[id number]
[2020-05-19 18:05] VITALS: BP 128/70; PULSE 64
[2020-05-19] MEDS: Non-Formulary Medication 1 Each (Aripiprazole [Abilify] 20 MG) PO SCH (19:21)
[2020-05-19] MEDS ORDERED: SENNOSIDES PO SCH (20:00)
[2020-05-19] MEDS ORDERED: PRAMIPEXOLE 1 MG PO SCH (20:00)
[2020-05-19] MEDS ORDERED: DOCUSATE SODIUM PO SCH (20:00)
[2020-05-19] MEDS ORDERED: Non-Formulary Medication 1 Each (Omega-3 Fatty Acids [Omega-3] 1,000 MG) PO SCH (20:00)
[2020-05-19] MEDS ORDERED: [UNRECOGNIZED DRUG - OTHER] PO SCH (20:00)
[2020-05-20] MEDS ORDERED: FLUoxetine 10 MG Cap ONE (07:39)
[2020-05-20] MEDS: BUPROPION HCL 150 MG PO SCH (07:42)
[2020-05-20] MEDS: LEVOTHYROXINE SODIUM 88 MCG PO SCH (07:44)
[2020-05-20] MEDS: Non-Formulary Medication 1 Each (Lorazepam [Lorazepam] 0.5 MG) PO SCH ×3 (07:52→20:57)
[2020-05-20] MEDS: FLUOXETINE 20 MG PO SCH (07:53)
[2020-05-20] MEDS ORDERED: Non-Formulary Medication 1 Each (Loratadine [Loratadine] 10 MG) PO SCH (08:00)
[2020-05-20] MEDS ORDERED: FLUOXETINE HCL 10 MG PO SCH (08:00)
[2020-05-20] MEDS ORDERED: Non-Formulary Medication 1 Each (Potassium Chloride [Klor-Con M20] 20 MEQ) PO SCH (08:00)
[2020-05-20] MEDS ORDERED: Non-Formulary Medication 1 Each (Aspirin [Halfprin] 81 MG) PO SCH (08:00)
[2020-05-20] MEDS ORDERED: Non-Formulary Medication 1 Each (Cholecalciferol (Vitamin D3) [Vitamin D3] 1,000 UNIT) PO SCH (08:00)
[2020-05-20] MEDS ORDERED: CINACALCET 30 MG PO SCH (08:00)
--- NOTE | 2020-05-20 13:14 | PCM.SN.2 ---
- Free Text/Narrative Note: A potential accepting facility was found which requested that the patient's lab work, EKG, and COVID tests repeated as they are over 24 hours or they would not be able to accept the patient. I re-ordered all of these tests to get this patient placed.
[2020-05-20] MEDS ORDERED: Non-Formulary Medication 1 Each (Latanoprost [Xalatan 0.005% Ophth Soln] 1 DROP) EYEBOTH SCH (20:00)
[2020-05-20] MEDS: Non-Formulary Medication 1 Each (Aripiprazole [Abilify] 20 MG) PO SCH (20:56)
[2020-05-21] MEDS: FLUOXETINE 20 MG PO SCH (07:39)
[2020-05-21] MEDS: LEVOTHYROXINE SODIUM 88 MCG PO SCH (07:39)
[2020-05-21] MEDS: BUPROPION HCL 150 MG PO SCH (07:39)
[2020-05-21] MEDS: Non-Formulary Medication 1 Each (Lorazepam [Lorazepam] 0.5 MG) PO SCH (07:39)
--- NOTE | 2020-05-21 13:48 | PCM.PN ---
- General Info Date of Service: 05/21/20 Subjective Update: Patient had been pleasantly confused and cooperative through out his hospital stay. He denies suicidality and verbalizes no knew complaints other than his on going urinary leakage. The patient has demonstrated no worrisome behavior. The patient does not require one on one care and will need increased monitoring since his Prozac dosage adjustment by his psychiatrist. Functional Status: Reports: Tolerating Diet, Ambulating. Denies: New Symptoms - Review of Systems General: Reports: No Symptoms HEENT: Reports: No Symptoms Pulmonary: Reports: No Symptoms Cardiovascular: Reports: No Symptoms Genitourinary: Reports: Other (on going incontinence issue which are being addressed by urology) Skin: Reports: No Symptoms Neurological: Reports: No Symptoms Psychiatric: Reports: Confusion. Denies: Mood Lability, Anxiety, Agitation, Hallucinations, Suicidal Ideation, Homicidal Ideation - Patient Data Vitals - Most Recent: Last Vital Signs Temp 97.8 F 05/19/20 13:04 Pulse 64 05/19/20 13:04 Resp 16 05/19/20 13:04 BP 128/70 05/19/20 13:04 Pulse Ox 97 05/19/20 13:04 Weight - Most Recent: 156 lb 12.86 oz Med Orders - Current: Current Medications Non-Formulary Medication (Aripiprazole [Abilify]) 20 mg PO BEDTIME [facility] Last Admin: 05/20/20 20:56 Dose: 20 mg Documented by: Non-Formulary Medication (Bupropion Hcl [Wellbutrin Sr]) 150 mg PO DAILY [facility] Last Admin: 05/21/20 07:39 Dose: 150 mg Documented by: (Donepezil [Aricept] (10 Mg Tablets)) 10 mg PO DAILY [facility] Last Admin: 05/21/20 07:39 Dose: 10 mg Documented by: Non-Formulary Medication (Latanoprost [Xalatan 0.005% Oph Soln]) 1 drop EYEBOTH BEDTIME [facility] Last Admin: 05/20/20 20:56 Dose: 1 drop Documented by: Non-Formulary Medication (Levothyroxine Sodium [Levoxyl]) 88 mcg PO DAILY [facility] Last Admin: 05/21/20 07:39 Dose: 88 mcg Documented by: Non-Formulary Medication (Lorazepam [Lorazepam]) 0.5 mg PO TID [facility] Last Admin: 05/21/20 07:39 Dose: 0.5 mg Documented by: (Olanzapine [ (Olanzapine] 7.5 Mg)) 7.5 mg PO DAILY [facility] Last Admin: 05/21/20 07:39 Dose: 7.5 mg Documented by: (Pramipexole Di-Hcl ([Mirapex] 1 Mg)) 2.5 mg PO BEDTIME [facility] Last Admin: 05/20/20 20:56 Dose: 2.5 mg Documented by: (Simvastatin [Zocor] (20 Mg)) 20 mg PO BEDTIME [facility] Last Admin: 05/20/20 20:56 Dose: 20 mg Documented by: (Tamsulosin Hcl [ (Flomax] 0.4 Mg)) 0.4 mg PO DAILY [facility] Last Admin: 05/21/20 07:39 Dose: 0.4 mg Documented by: (Topiramate [Topamax (] 50 Mg)) 50 mg PO BID [facility] Last Admin: 05/21/20 07:39 Dose: 50 mg Documented by: (Trazodone Hcl [ Trazodone Hcl] 50mg Tab) 1 tab PO BEDTIME [facility] Last Admin: 05/20/20 20:56 Dose: 1 tab Documented by: Senna 8.6mg Tablet 2 each PO DAILY PRN PRN Reason: CONSTIPATION Fluoxetine 20mg (Capsules) 3 each PO DAILY [facility] Last Admin: 05/21/20 07:39 Dose: 3 each Documented by: Discontinued Medications Fluoxetine HCl (Prozac) Confirm Administered Dose 10 mg .ROUTE .STK-MED ONE Stop: 05/20/20 07:40 Last Admin: 05/20/20 10:50 Dose: Not Given Documented by: Non-Formulary Medication (Aspirin [Halfprin]) 81 mg PO DAILY [facility] (Fluoxetine Hcl [ (Prozac] 40 Mg)) 40 mg PO DAILY [facility] Last Admin: 05/20/20 11:40 Dose: Not Given Documented by: - Exam General: Alert, Cooperative, No Acute Distress HEENT: Pupils Equal, Pupils Reactive, EOMI, Mucous Membr. Moist/[place] Neck: Supple Lungs: Clear to Auscultation, Normal Respiratory Effort Cardiovascular: Regular Rate, Regular Rhythm Skin: Warm, Dry, Intact Neurological: No New Focal Deficit Sepsis Event Note - Evaluation Sepsis Screening Result: No Definite Risk - Focused Exam Date Exam was Performed: 05/21/20 Time Exam was Performed: 13:40 - Problem List Review Problem List Initiated/Reviewed/Updated: Yes - Plan Plan:: The patient has been deemed to no longer require one on one care and he has been accepted back at the care center. The patient had an adjustment to his Prozac by his psychiatrist and will require increased observation during the therapeutic adjustment phase of the medication. PLAN: Discharge back to the longterm Continue previous medications Increased monitoring during therapeutic adjustment period of Prozac
== END 2020-05-21 16:30 | DRG 880 ==
LOC: UNDOADMIN 12:59 → LB.MS 12:59
PROVIDERS: ADMIT Physician Assistant; ATTEND Physician Assistant
DX: R45.851 Suicidal ideations (principal); R41.0 Disorientation, unspecified; F25.0 Schizoaffective disorder, bipolar type
CPT/HCPCS: A9270-GY